=== PATIENT | male | born 1970 | race Caucasian/White ===

== ENCOUNTER 2018-04-22 16:44 | Inpatient (IN) | payer BC, OTHER ==
[2018-04-22] MEDS ORDERED: VANCOMYCIN HCL INJ 1000 MG VIAL IV ONE ×2 (18:52→21:15)
[2018-04-22] MEDS ORDERED: CEFTRIAXONE 1 GM/D5W RTU 1 GM/50 ML RTUPB IV ONE (18:53)
[2018-04-22] MEDS ORDERED: NORMAL SALINE 1000 ML 1,000 ML IV ONE (18:53)
--- NOTE | 2018-04-22 18:59 | ER Document Report ---
ED Medical Screen (RME) - General Mode of Arrival: Ambulatory Information source: Patient TRAVEL OUTSIDE OF THE [place] IN LAST 30 DAYS: No <SIRENA PRATER - Last Filed: 04/22/18 20:44> <YADIRA MIRANDA - Last Filed: 04/22/18 20:45> - General Chief Complaint: Fever Stated Complaint: LEG PAIN AND FEVER Time Seen by Provider: 04/22/18 18:31 Notes: Patient is a 47 year old male presenting to the emergency department complaining of lower left leg swelling, pain and redness onset 7 days ago worsening yesterday. Patient states he presented to a emergency department 7 days ago due to yoli poison yolie which then progressed into an infection. The next day he was seen at [facility] where he was prescribed clindamycin. Patient states the redness, swelling and pain has worsened despite being on the medication and was diagnosed with a DVT in the left poplietal vein on 04/19/2018. During that visit the patient had a WBC of 12.3. On 04/21/2018 patient had a WBC of 20.1 and a BUN of 21. Patient states he presented today due to increasing pain, and drainage from an wound on his lower right leg. He also complains of being thirsty and having a constant fever with the max being 102.3. Patient is currently on Xarelto. GENERAL: Alert, interacts well. No acute distress. HEAD: Normocephalic, atraumatic. EYES: Pupils equal, round, and reactive to light. Extraocular movements intact. ENT: Oral mucosa moist, tongue midline. NECK: Full range of motion. Supple. Trachea midline. LUNGS:. No respiratory distress. EXTREMITIES: Moves all 4 extremities spontaneously. Left leg is grossly swollen. Diffuse erythema which is more intense anteriorly. Active drainage from ulcer close to ankle anteriorly on the left leg, 2 areas of fluctuance. NEUROLOGICAL: Alert and oriented x3. Normal speech. PSYCH: Normal affect, normal mood. I have greeted and performed a rapid initial assessment of this patient. A comprehensive ED assessment and evaluation of the patient, analysis of test results and completion of the medical decision making process will be conducted by additional ED providers. (SIRENA PRATER) - Related Data Allergies/Adverse Reactions: No Known Allergies Allergy (Verified 04/22/18 18:31) Past Medical History Renal/ Medical History: Denies: Hx Peritoneal Dialysis <SIRENA PRATER - Last Filed: 04/22/18 20:44> - Vital signs Vitals: Temp Pulse Resp BP Pulse Ox 100.2 F 122 H 20 121/82 96 04/22/18 16:58 04/22/18 16:58 04/22/18 16:58 04/22/18 16:58 04/22/18 16:58 Course - Laboratory Result Diagrams: 04/22/18 19:47 04/22/18 19:47 <SIRENA PRATER - Last Filed: 04/22/18 20:44> - Laboratory Result Diagrams: 04/22/18 19:47 04/22/18 19:47 <YADIRA MIRANDA - Last Filed: 04/22/18 20:45> - Vital Signs Vital signs: Temp Pulse Resp BP Pulse Ox 100.2 F 122 H 20 121/82 96 04/22/18 16:58 04/22/18 16:58 04/22/18 16:58 04/22/18 16:58 04/22/18 16:58 - Laboratory Laboratory results interpreted by me: 04/22/18 04/22/18 04/22/18 19:47 19:47 19:47 WBC 25.0 H RBC 4.12 L Hgb 11.9 L Hct 35.4 L RDW 14.8 H Seg Neuts % (Manual) 79 H Band Neutrophils % 2 L Monocytes % (Manual) 2 L Metamyelocytes % 2 H Abs Neuts (Manual) 20.8 H PT 16.4 H Sodium 130.3 L Potassium 3.5 L Chloride 95 L Calcium 8.2 L Direct Bilirubin 0.6 H Alkaline Phosphatase 186 H Total Protein 5.6 L Albumin 2.5 L Doctor's Discharge <SIRENA PRATER - Last Filed: 04/22/18 20:44> <YADIRA MIRANDA - Last Filed: 04/22/18 20:45> - Discharge Referrals: FLY BEST MD [NO LOCAL MD] - Follow up as needed
--- NOTE | 2018-04-22 19:37 | ER Document Report ---
ED General - General Chief Complaint: Fever Stated Complaint: LEG PAIN AND FEVER Time Seen by Provider: 04/22/18 18:31 Mode of Arrival: Ambulatory TRAVEL OUTSIDE OF THE [place] IN LAST 30 DAYS: No - HPI Patient complains to provider of: leg pain Onset: Other - This is a 47-year-old man who presents for evaluation of worsening redness and swelling in his left lower extremity. He was diagnosed with cellulitis 3 days prior and started on antibiotics, he is continued to have fevers since that time and notes that it has had worsening swelling as well as pain increasing in the leg. Is never had anything like this in the past has no known medical problems. Nothing seemed to make any better, time seems to be making it worse. - Related Data Allergies/Adverse Reactions: No Known Allergies Allergy (Verified 04/22/18 18:31) Past Medical History - General Information source: Patient - Social History Smoking Status: Unknown if Ever Smoked Family History: None Patient has suicidal ideation: No Patient has homicidal ideation: No Renal/ Medical History: Denies: Hx Peritoneal Dialysis Review of Systems - Review of Systems -: Yes All other systems reviewed and negative Physical Exam - Vital signs Vitals: Temp Pulse Resp BP Pulse Ox 100.2 F 122 H 20 121/82 96 04/22/18 16:58 04/22/18 16:58 04/22/18 16:58 04/22/18 16:58 04/22/18 16:58 - General General appearance: Appears well In distress: None - HEENT Head: Normocephalic Eyes: Normal Conjunctiva: Normal Cornea: Normal Extraocular movements intact: Yes Eyelashes: Normal Pupils: PERRL - Respiratory Respiratory status: No respiratory distress Chest status: Nontender Breath sounds: Normal Chest palpation: Normal - Cardiovascular Rhythm: Tachycardia Heart sounds: Normal auscultation Murmur: No - Abdominal Inspection: Normal Distension: No distension Tenderness: Nontender - Back Back: Normal - Extremities General upper extremity: Normal inspection, Nontender, Normal ROM, Normal strength General lower extremity: Other - The left lower extremity demonstrates marketed erythema and swelling in comparison to the right, there is stranding proximally from the knee over the posterior aspect of the leg near the groin, there is no appreciable crepitance, there is normal range of motion in the knee, there is + 2 pitting edema below the level of the knee, there are several bullae overlying areas of erythema, no obvious purulence, no obvious fluctuance - Neurological Neuro grossly intact: Yes Cognition: Normal Orientation: AAOx4 Georgie Coma Scale Eye Opening: Spontaneous Georgie Coma Scale Verbal: Oriented Alexander Coma Scale Motor: Obeys Commands Georgie Coma Scale Total: 15 Speech: Normal Motor strength normal: LUE, RUE, LLE, RLE - Psychological Associated symptoms: Normal affect Course - Re-evaluation Re-evalutation: 04/22/18 23:20 This 47-year-old man who is failed outpatient treatment for a cellulitis in the left lower extremity. His labs are consistent with a probable underlying sepsis. Has had initiated through triage vancomycin as well as Rocephin. His white count is 25, he is gotten fluids, is overall well-appearing and his heart rate did improve with fluids. We will plan for this patient undergo admission to the hospital for his presumptive cellulitis he does have a pending ultrasound at this time though these changes are not consistent with a phlegmasia cerulea dolens and far more consistent with an underlying infectious process. There is no obvious crepitance to suggest a more serious underlying pathology such as necrotizing fasciitis at this time do not believe there is an indication for debridement. On discussion with Dr. Mendoza there is agreement to admit this patient to the hospital, will continue to monitor as necessary. - Vital Signs Vital signs: Temp Pulse Resp BP Pulse Ox 100.2 F 122 H 28 H 146/91 H 100 04/22/18 16:58 04/22/18 16:58 04/22/18 21:01 04/22/18 21:01 04/22/18 21:01 - Laboratory Result Diagrams: 04/22/18 19:47 04/22/18 19:47 Laboratory results interpreted by me: 04/22/18 04/22/18 04/22/18 19:47 19:47 19:47 WBC 25.0 H RBC 4.12 L Hgb 11.9 L Hct 35.4 L RDW 14.8 H Seg Neuts % (Manual) 79 H Band Neutrophils % 2 L Monocytes % (Manual) 2 L Metamyelocytes % 2 H Abs Neuts (Manual) 20.8 H PT 16.4 H Sodium 130.3 L Potassium 3.5 L Chloride 95 L Calcium 8.2 L Direct Bilirubin 0.6 H Alkaline Phosphatase 186 H Total Protein 5.6 L Albumin 2.5 L Discharge - Discharge Clinical Impression: SIRS (systemic inflammatory response syndrome) Cellulitis Qualifiers: Site of cellulitis: extremity Site of cellulitis of extremity: lower extremity Laterality: left Qualified Code(s): L03.116 - Cellulitis of left lower limb Leukocytosis Qualifiers: Leukocytosis type: other Qualified Code(s): D72.828 - Other elevated white blood cell count Condition: Stable Disposition: ADMITTED INPATIENT Admitting Provider: Hospitalist Unit Admitted: Medical Floor
[2018-04-22 20:01] LABS: VENOUS BLOOD BASE EXCESS 2.5 mmol/L; VENOUS BLOOD HCO3 27.7 mmol/L (20-32); VENOUS BLOOD PCO2 45.4 mmHg (35-63); VENOUS BLOOD PH 7.4 (7.30-7.42)
[2018-04-22 20:03] LABS: HEMATOCRIT 35.4 % (37.9-51.0); HEMOGLOBIN 11.9 g/dL (13.5-17.0); MEAN CORPUSCULAR HEMOGLOBIN 28.9 pg (27.0-33.4); MEAN CORPUSCULAR HGB CONC 33.7 g/dL (32.0-36.0); MEAN CORPUSCULAR VOLUME 86 fl (80-97); PLATELET COUNT 198 10^3/uL (150-450); RED BLOOD COUNT 4.12 10^6/uL (4.35-5.55); RED CELL DISTRIBUTION WIDTH 14.8 % (11.5-14.0)
[2018-04-22 20:08] LABS: INTERNATIONAL RATION (INR) 1.26; PROTHROMBIN TIME 16.4 SEC (11.4-15.4)
[2018-04-22 20:20] LABS: ABSOLUTE LYMPHOCYTES# (MANUAL) 3.5 10^3/uL (0.5-4.7); ABSOLUTE MONOCYTES # (MANUAL) 0.5 10^3/uL (0.1-1.4); ABSOLUTE NEUTROPHILS# (MANUAL) 20.8 10^3/uL (1.7-8.2); BAND NEUTROPHILS % (MANUAL) 2 % (3-5); BASOPHILS % (MANUAL) 0 % (0-2); EOSINOPHILS % (MANUAL) 1 % (0-6); LYMPHOCYTES % (MANUAL) 13 % (13-45); METAMYELOCYTES % (MANUAL) 2 % (0); MONOCYTES % (MANUAL) 2 % (3-13); SEGMENTED NEUTROPHILS % (MAN) 79 % (42-78); TOTAL CELLS COUNTED 100
[2018-04-22 20:21] LABS: ALANINE AMINOTRANSFERASE 48 U/L (21-72); ALBUMIN 2.5 g/dL (3.5-5.0); ALKALINE PHOSPHATASE 186 U/L (38-126); ANION GAP 10 (5-19); ASPARTATE AMINO TRANSFERASE 43 U/L (17-59); BILIRUBIN,DIRECT 0.6 mg/dL (0.0-0.4); BILIRUBIN,TOTAL 0.9 mg/dL (0.2-1.3); BLOOD UREA NITROGEN 13 mg/dL (7-20); CALCIUM 8.2 mg/dL (8.4-10.2); CARBON DIOXIDE 25 mmol/L (22-30); CHLORIDE 95 mmol/L (98-107); GLUCOSE 101 mg/dL (75-110); POTASSIUM 3.5 mmol/L (3.6-5.0); SODIUM 130.3 mmol/L (137-145); TOTAL PROTEIN 5.6 g/dL (6.3-8.2)
[2018-04-22 20:22] LABS: ANISOCYTOSIS SLIGHT; PLATELET COMMENT ADEQUATE; TOXIC GRANULATION SLIGHT
[2018-04-22] MEDS ORDERED: FENTANYL CITRATE INJ/PF 100 MCG/2 ML AMPUL IV ONE (20:31)
[2018-04-22] MEDS ORDERED: HYDRALAZINE HCL INJ/PF 20 MG/1 ML SDV IV PRN (21:48)
[2018-04-22] MEDS ORDERED: MAGNESIUM HYDROXIDE SUSP 30 ML UDCUP PO PRN (21:49)
[2018-04-22] MEDS ORDERED: MAG HYDROX/AL HYDROX/SIMETH SUSP 30 ML UDCUP PO PRN (21:49)
[2018-04-22] MEDS ORDERED: IPRATROPIUM/ALBUTEROL 0.5-2.5 MG/3 ML AMPUL NEB PRN (21:49)
[2018-04-22] MEDS ORDERED: VANCOMYCIN HCL 0 MG in DEXTROSE 5%-WATER 250 ML IV NR (22:00)
[2018-04-22] MEDS ORDERED: HEPARIN SOD (PORCINE) 5,000 UNIT/ML 1 ML SYRINGE SUBCUT SCH (22:00)
[2018-04-22] MEDS ORDERED: NORMAL SALINE 1000 ML 1,000 ML IV SCH (22:00)
--- NOTE | 2018-04-22 22:33 | EKG REPORT ---
SEVERITY:- ABNORMAL ECG - SINUS RHYTHM IVCD, CONSIDER ATYPICAL RBBB LEFT VENTRICULAR HYPERTROPHY : Confirmed by: Angélica Lara MD 22-Apr-2018 22:32:48
[2018-04-22] MEDS ORDERED: RIVAROXABAN 10 MG TABLET PO ONE (23:06)
[2018-04-23] MEDS: KETOROLAC TROMETHAMINE INJ/PF 30 MG/1 ML SDV IV PRN ×3 (00:36→18:32)
[2018-04-23] MEDS: ACETAMINOPHEN 325 MG TABLET PO PRN ×2 (00:37→15:59)
[2018-04-23] MEDS: VANCOMYCIN HCL 1,500 MG in DEXTROSE 5%-WATER 250 ML IV SCH ×4 (00:52→21:56)
[2018-04-23] MEDS: NORMAL SALINE 1000 ML 1,000 ML IV PRN ×4 (00:52→18:32)
[2018-04-23] MEDS ORDERED: VANCOMYCIN HCL INJ 500 MG VIAL ONE (05:25)
[2018-04-23] MEDS ORDERED: VANCOMYCIN HCL INJ 1000 MG VIAL ONE (05:25)
--- NOTE | 2018-04-23 05:37 | PDOC H&P ---
History of Present Illness Admission Date/PCP: 04/22/18 21:59 Patient complains of: Left leg pain and swelling History of Present Illness: JENNIFER TODD is a 47 year old male with a past medical history of hypertension. Patient presents with left leg swelling pain and fever. His leg was initially inflamed and edematous following exposure to poison yolie 2 weeks ago however became acutely worse 5 days ago prompting emergency room evaluation at [facility]. He was diagnosed with a cellulitis and deep vein thrombosis, started on unknown antibiotic and Xarelto. Over the last 48 hours he has had worsening prompting a reevaluation at [facility]. He is found to have severe sepsis fever and leukocytosis of 25,000, and +4 edema to the left lower extremity. He receives vancomycin, Rocephin, and IV fluid challenge and referred to the hospitalist for admission. Patient admits compliance with antibiotic and Xarelto. He denies chest pain, shortness of breath, history of diabetes, IV drug use or previous episode of MRSA. Past Medical History Cardiac Medical History: Reports: Hypertension Past Surgical History Past Surgical History: Reports: None Social History Information Source: Patient, Emergency Med Personnel Smoking Status: Former Smoker Number of Years Smokin Frequency of Alcohol Use: Heavy Hx Recreational Drug Use: No Drugs: None Hx Prescription Drug Abuse: No - Advance Directive Resuscitation Status: Full Code Family History Family History: Hypertension Parental Family History Reviewed: Yes Children Family History Reviewed: Yes Sibling(s) Family History Reviewed.: Yes Medication/Allergy Allergies/Adverse Reactions: No Known Allergies Allergy (Verified 04/22/18 18:31) Review of Systems Constitutional: ABSENT: chills, fever(s), headache(s), weight gain, weight loss Eyes: ABSENT: visual disturbances Ears: ABSENT: hearing changes Cardiovascular: ABSENT: chest pain, dyspnea on exertion, edema, orthropnea, palpitations Respiratory: ABSENT: cough, hemoptysis Gastrointestinal: ABSENT: abdominal pain, constipation, diarrhea, hematemesis, hematochezia, nausea, vomiting Genitourinary: ABSENT: dysuria, hematuria Musculoskeletal: ABSENT: joint swelling Integumentary: ABSENT: rash, wounds Neurological: ABSENT: abnormal gait, abnormal speech, confusion, dizziness, focal weakness, syncope Psychiatric: ABSENT: anxiety, depression, homidical ideation, suicidal ideation Endocrine: ABSENT: cold intolerance, heat intolerance, polydipsia, polyuria Hematologic/Lymphatic: ABSENT: easy bleeding, easy bruising Physical Exam Vital Signs: Temp Pulse Resp BP Pulse Ox 102.9 F H 106 H 19 134/96 H 97 04/23/18 00:40 04/23/18 00:40 04/23/18 00:40 04/23/18 00:40 04/23/18 00:40 Intake & Output 04/21/18 04/22/18 04/23/18 11:59 11:59 11:59 Intake Total 1000 Balance 1000 Weight 120.8 kg General appearance: PRESENT: cooperative, severe distress. ABSENT: no acute distress, hard of hearing Head exam: PRESENT: atraumatic, normocephalic Eye exam: PRESENT: conjunctiva pink, EOMI, PERRLA. ABSENT: scleral icterus Ear exam: PRESENT: normal external ear exam Mouth exam: PRESENT: moist, tongue midline Neck exam: ABSENT: carotid bruit, JVD, lymphadenopathy, thyromegaly Respiratory exam: PRESENT: clear to auscultation alban. ABSENT: rales, rhonchi, wheezes Cardiovascular exam: PRESENT: RRR. ABSENT: diastolic murmur, rubs, systolic murmur Pulses: PRESENT: normal dorsalis pedis pul Vascular exam: PRESENT: normal capillary refill GI/Abdominal exam: PRESENT: normal bowel sounds, soft. ABSENT: distended, guarding, mass, organolmegaly, rebound, tenderness Rectal exam: PRESENT: deferred Extremities exam: PRESENT: other - Left leg +4 edema with several irregular ulcer with serosanguineous drainage. No crepitus Musculoskeletal exam: PRESENT: tenderness - Left leg tenderness. ABSENT: full ROM - Limited by pain Neurological exam: PRESENT: alert, awake, oriented to person, oriented to place , oriented to time, oriented to situation, CN II-XII grossly intact. ABSENT: motor sensory deficit Psychiatric exam: PRESENT: appropriate affect, normal mood. ABSENT: homicidal ideation, suicidal ideation Skin exam: PRESENT: erythema, warm, other - Left leg +4 edema with several irregular ulcers with serosanguineous drainage, no crepitus. ABSENT: dry, intact, jaundice, mottled, normal color, pallor, petechiae, vesicles Assessment & Plan - Diagnosis (1) Cellulitis Qualifiers: Site of cellulitis: extremity Site of cellulitis of extremity: lower extremity Laterality: left Qualified Code(s): L03.116 - Cellulitis of left lower limb Is this a current diagnosis for this admission?: Yes Plan: Left leg cellulitis, concern for necrotizing fasciitis, MRI left leg and surgical consult ordered. Continue empiric vancomycin, Rocephin, follow-up CBC and blood culture (2) Leukocytosis Qualifiers: Leukocytosis type: other Qualified Code(s): D72.828 - Other elevated white blood cell count Is this a current diagnosis for this admission?: Yes Plan: Secondary to #1 (3) SIRS (systemic inflammatory response syndrome) Is this a current diagnosis for this admission?: Yes Plan: Secondary to #1 (4) Deep vein thrombosis Is this a current diagnosis for this admission?: Yes Plan: Left leg secondary to #1, continue Xarelto - Time Time Spent: 50 to 70 Minutes - Inpatient Certification Medical Necessity: Need Close Monitoring Due to Risk of Patient Decompensation
[2018-04-23 06:15] LABS: HEMATOCRIT 29.8 % (37.9-51.0); HEMOGLOBIN 10.2 g/dL (13.5-17.0); MEAN CORPUSCULAR HEMOGLOBIN 29.3 pg (27.0-33.4); MEAN CORPUSCULAR HGB CONC 34.1 g/dL (32.0-36.0); MEAN CORPUSCULAR VOLUME 86 fl (80-97); PLATELET COUNT 176 10^3/uL (150-450); RED BLOOD COUNT 3.47 10^6/uL (4.35-5.55); RED CELL DISTRIBUTION WIDTH 14.9 % (11.5-14.0); WHITE BLOOD COUNT 22.8 10^3/uL (4.0-10.5)
[2018-04-23 06:30] LABS: ANION GAP 8 (5-19); BLOOD UREA NITROGEN 10 mg/dL (7-20); CALCIUM 7.5 mg/dL (8.4-10.2); CARBON DIOXIDE 25 mmol/L (22-30); CHLORIDE 99 mmol/L (98-107); GLUCOSE 110 mg/dL (75-110); POTASSIUM 3.4 mmol/L (3.6-5.0); SODIUM 132.4 mmol/L (137-145)
[2018-04-23 06:38] LABS: ABSOLUTE LYMPHOCYTES# (MANUAL) 1.8 10^3/uL (0.5-4.7); ABSOLUTE MONOCYTES # (MANUAL) 1.1 10^3/uL (0.1-1.4); ABSOLUTE NEUTROPHILS# (MANUAL) 19.4 10^3/uL (1.7-8.2); BAND NEUTROPHILS % (MANUAL) 2 % (3-5); BASOPHILS % (MANUAL) 0 % (0-2); EOSINOPHILS % (MANUAL) 2 % (0-6); LYMPHOCYTES % (MANUAL) 8 % (13-45); METAMYELOCYTES % (MANUAL) 1 % (0); MONOCYTES % (MANUAL) 5 % (3-13); SEGMENTED NEUTROPHILS % (MAN) 82 % (42-78); TOTAL CELLS COUNTED 100
[2018-04-23 06:42] LABS: OVALOCYTES SLIGHT; PLATELET COMMENT ADEQUATE; POIKILOCYTOSIS SLIGHT; TOXIC GRANULATION 1+
[2018-04-23] MEDS ORDERED: CEFTRIAXONE 1 GM/D5W RTU 1 GM/50 ML RTUPB IV SCH (10:00)
[2018-04-23] MEDS ORDERED: RIVAROXABAN 10 MG TABLET PO SCH (10:00)
[2018-04-23] MEDS: DOCUSATE SODIUM 100 MG CAPSULE PO SCH ×2 (10:28→17:39)
--- NOTE | 2018-04-23 11:58 | PDOC PROGRESS REPORT ---
Subjective Progress Note for:: 04/23/18 Subjective:: Mr. Monae is a 47 yr old male with a history of hypertension who was admitted for worsening left leg cellulitis. He recently sustained skin rashes from poison yolie and was also prescribed antibiotics. He was advised bedrest and had progressive swelling of the left leg. His PCP subsequently ordered a US doppler which revealed a left popliteal DVT. He was then started on Xarelto. No acute event overnight. Patient complains of mild left leg pain on movement. No fever or chills. Left lower extremity is grossly swollen jose erythematous. Note of multiple rashes on both legs (from poison yolie) with mostly healing lesions on the right thigh. Note of a ~1 cm wound on the left leg with weeping. Reason For Visit: LEFT LEG CELLULITIS Physical Exam Vital Signs: Temp Pulse Resp BP Pulse Ox 102.9 F H 106 H 19 134/96 H 97 04/23/18 00:40 04/23/18 00:40 04/23/18 00:40 04/23/18 00:40 04/23/18 00:40 Intake & Output 04/22/18 04/23/18 04/24/18 06:59 06:59 06:59 Intake Total 1999 850 Balance 1999 850 Weight 266 lb 5.094 oz General appearance: PRESENT: no acute distress, well-developed, well-nourished Head exam: PRESENT: atraumatic, normocephalic Eye exam: PRESENT: conjunctiva pink, EOMI, PERRLA. ABSENT: scleral icterus Ear exam: PRESENT: normal external ear exam Mouth exam: PRESENT: moist, tongue midline Neck exam: ABSENT: carotid bruit, JVD, lymphadenopathy, thyromegaly Respiratory exam: PRESENT: clear to auscultation alban. ABSENT: rales, rhonchi, wheezes Cardiovascular exam: PRESENT: RRR. ABSENT: diastolic murmur, rubs, systolic murmur Pulses: PRESENT: normal dorsalis pedis pul GI/Abdominal exam: PRESENT: normal bowel sounds, soft. ABSENT: distended, guarding, mass, organolmegaly, rebound, tenderness Rectal exam: PRESENT: deferred Extremities exam: PRESENT: other - Left lower extremity is grossly swollen jose erythematous. Note of multiple rashes on both legs (from poison yolie) with mostly healing lesions on the right thigh. Note of a ~1 cm wound on the left leg with weeping. Neurological exam: PRESENT: alert, awake, oriented to person, oriented to place , oriented to time, oriented to situation, CN II-XII grossly intact. ABSENT: motor sensory deficit Results Laboratory Results: 04/23/18 05:52 04/23/18 05:52 04/23/18 04/23/18 05:52 05:52 WBC 22.8 H RBC 3.47 L Hgb 10.2 L Hct 29.8 L MCV 86 MCH 29.3 MCHC 34.1 RDW 14.9 H Plt Count 176 Seg Neutrophils % Not Reportable Lymphocytes % Not Reportable Monocytes % Not Reportable Eosinophils % Not Reportable Basophils % Not Reportable Absolute Neutrophils Not Reportable Absolute Lymphocytes Not Reportable Absolute Monocytes Not Reportable Absolute Eosinophils Not Reportable Absolute Basophils Not Reportable Sodium 132.4 L Potassium 3.4 L Chloride 99 Carbon Dioxide 25 Anion Gap 8 BUN 10 Creatinine 0.75 Est GFR ( Amer) > 60 Est GFR (Non-Af Amer) > 60 Glucose 110 Calcium 7.5 L Assessment & Plan - Diagnosis (1) Cellulitis Qualifiers: Site of cellulitis: extremity Site of cellulitis of extremity: lower extremity Laterality: left Qualified Code(s): L03.116 - Cellulitis of left lower limb Is this a current diagnosis for this admission?: Yes Plan: Continue Rocephin and vancomycin. MRI pending to rule out necrotizing fasciitis. Surgery has evaluated patient. Further recommendations pending MRI result. (2) Deep vein thrombosis Is this a current diagnosis for this admission?: Yes Plan: Patient had a recent left popliteal DVT. Will reassess if there is progression due to worsening leg swelling. His last dose of Xarelto was at 12:40 am today. - Time Time Spent with patient: 25-34 minutes
--- NOTE | 2018-04-23 12:00 | XCELERA REPORT ---
[address] [place] [facility] [address] Lower Extremity Venous Evaluation Procedure: Color flow and duplex imaging of the veins of the left lower extremity as well as the right Common Femoral vein. Right Sided Venous Evaluation The right common femoral vein is fully compressible. Spontaneous and phasic flow is present in the right common femoral vein. Left Sided Venous Evaluation Abnormal vessel filling, echo poor, incomplete compression and augmentation and minimal Colour flow noted in the Popliteal vein. Others are normal. Interpretation Summary Positive for Subacute DVT in the left Popliteal vein. Similar findings said to be found on study of 04/19/18. Significant resolution is unlikely for days to weeks. Name: JENNIFER TODD Age: 47 yrs Gender: Male : 1970 Patient Status: Inpatient Patient Location: [address] [place] [address] Study Date: 04/23/2018 08:40 AM Reason For Study: left leg DVT Ordering Physician: MORGAN ERNANDEZ Performed By: José Miguel Morales : MORGAN ERNANDEZ > Ced Cardozo
--- NOTE | 2018-04-23 13:06 | RADIOLOGY REPORT (SQ) ---
EXAM DESCRIPTION: MRI LT LOWER EXTREMITY COMBO COMPLETED DATE/TIME: 04/23/2018 12:46 pm REASON FOR STUDY: Evaluate for Necrotizing fasciitis, abscess COMPARISON: None. TECHNIQUE: Multiplanar imaging of the left lower leg to include T1-weighted, postcontrast T1-weighte d, and T2-weighted images. CONTRAST TYPE AND DOSE: 20 mL Dotarem. RENAL FUNCTION: GFR > 60. LIMITATIONS: Heterogeneous fat saturation FINDINGS: No bone marrow edema or enhancement worrisome for osteomyelitis. There is diffuse skin thickening and subcutaneous edema with contrast enhancement from diffuse left l eg cellulitis throughout the field of view, from just below the knee to just above the ankle joint. There is fluid tracking along the tissue planes around the gastrocnemius muscle deep and superficial aspect. There is abnormal primary intrinsic gastrocnemius muscle edema and enhancement worrisome for myositis. This best shown on axial images 8-25, and coronal image 11. No intramuscular abscess. There is mild edema and contrast enhancement along the superficial aspect of the tibialis anterior mu scle worrisome for myositis, best shown on axial images 21-29. Throughout the medial left lower leg soft tissues, lesser saphenous vein varicosities without gross M R evidence of clot identified. IMPRESSION: Diffuse left lower leg cellulitis Abnormal fluid tracking along the deep and superficial aspect of the gastrocnemius muscle with abnorm al muscle enhancement worrisome for myositis. No intramuscular abscess Mild edema and muscle enhancement, superficial surface tibialis anterior muscle worrisome for myositi s. TECHNICAL DOCUMENTATION: JOB ID: [id number] [employer]- All Rights Reserved Reading location - IP/workstation name: [email or web address]
[2018-04-23 13:59] LABS: INTERNATIONAL RATION (INR) 1.23; PROTHROMBIN TIME 16.1 SEC (11.4-15.4)
[2018-04-23 14:00] LABS: PARTIAL THROMBOPLASTIN TIME 45.4 SEC (23.5-35.8)
[2018-04-23] MEDS: HEPARIN SODIUM,PORCINE/D5W 25,000 UNIT/250 ML RTUINJ IV PRN (14:58)
[2018-04-23] MEDS ORDERED: HEPARIN SOD (PORCINE) 1,000 UNIT/ML 10 ML VIAL IV PRN (17:13)
--- NOTE | 2018-04-23 17:56 | PDOC CONSULTATION ---
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 The left leg got more swollen and went to [facility] 5 days ago. He was diagnosed wit DVT left leg and placed on Xarelto and unknown antibiotic. He then developed more swelling and redness along left lower leg associated with fever and went to [facility].He was diagnosed with sepsis and placed on IV antibiotics. A repeat ultrasound of left leg veins was done which confirmed DVT. He just had an MRI of left leg. Past Medical History Cardiac Medical History: Reports: Hypertension Past Surgical History Past Surgical History: Reports: None Social History Smoking Status: Former Smoker Number of Years Smokin Frequency of Alcohol Use: Heavy Hx Recreational Drug Use: No Drugs: None Hx Prescription Drug Abuse: No - Advance Directive Resuscitation Status: Full Code Family History Family History: Hypertension Parental Family History Reviewed: Yes Children Family History Reviewed: No Sibling(s) Family History Reviewed.: No Medication/Allergy Home Medications: Rivaroxaban [Xarelto] 15 mg PO Q12 04/23/18 Allergies/Adverse Reactions: No Known Allergies Allergy (Verified 04/22/18 18:31) Review of Systems Constitutional: PRESENT: as per HPI Eyes: PRESENT: other - No visual/hearing changes Cardiovascular: PRESENT: other - no chest pains /cough Gastrointestinal: PRESENT: other - no pains Genitourinary: PRESENT: other - no dysuria Integumentary: PRESENT: other - swelling and inflammation left leg Neurological: PRESENT: other - no seizures Physical Exam Vital Signs: Temp Pulse Resp BP Pulse Ox 99.6 F 83 16 132/62 H 98 04/23/18 07:41 04/23/18 16:20 04/23/18 16:20 04/23/18 07:41 04/23/18 16:20 Intake & Output 04/22/18 04/23/18 04/24/18 06:59 06:59 06:59 Intake Total 1999 2650 Output Total 2350 Balance 2000 300 Weight 120.8 kg General appearance: PRESENT: mild distress Head exam: PRESENT: atraumatic Eye exam: PRESENT: conjunctiva pink Mouth exam: PRESENT: moist Neck exam: PRESENT: full ROM Respiratory exam: PRESENT: clear to auscultation alban Cardiovascular exam: PRESENT: RRR Pulses: PRESENT: normal radial pulses Vascular exam: PRESENT: normal capillary refill GI/Abdominal exam: PRESENT: soft Rectal exam: PRESENT: deferred Extremities exam: PRESENT: other - left leg swollen, distal to left knee marked erythema and tenderness. There is a jagged laceration on the left distal anterior clark that is tender may be developing an abscess Musculoskeletal exam: PRESENT: ambulatory Neurological exam: PRESENT: alert, oriented to person, oriented to place, oriented to time, oriented to situation Psychiatric exam: PRESENT: appropriate affect Skin exam: PRESENT: erythema, warm - left lower leg Results Laboratory Results: 04/23/18 05:52 04/23/18 05:52 04/23/18 04/23/18 05:52 05:52 WBC 22.8 H RBC 3.47 L Hgb 10.2 L Hct 29.8 L MCV 86 MCH 29.3 MCHC 34.1 RDW 14.9 H Plt Count 176 Seg Neutrophils % Not Reportable Lymphocytes % Not Reportable Monocytes % Not Reportable Eosinophils % Not Reportable Basophils % Not Reportable Absolute Neutrophils Not Reportable Absolute Lymphocytes Not Reportable Absolute Monocytes Not Reportable Absolute Eosinophils Not Reportable Absolute Basophils Not Reportable Sodium 132.4 L Potassium 3.4 L Chloride 99 Carbon Dioxide 25 Anion Gap 8 BUN 10 Creatinine 0.75 Est GFR ( Amer) > 60 Est GFR (Non-Af Amer) > 60 Glucose 110 Calcium 7.5 L Impressions: Lower Extremity MRI 04/23/18 00:00 IMPRESSION: Diffuse left lower leg cellulitis Abnormal fluid tracking along the deep and superficial aspect of the gastrocnemius muscle with abnormal muscle enhancement worrisome for myositis. No intramuscular abscess Mild edema and muscle enhancement, superficial surface tibialis anterior muscle worrisome for myositis. Assessment & Plan - Diagnosis (1) Cellulitis Qualifiers: Site of cellulitis: extremity Site of cellulitis of extremity: lower extremity Laterality: left Qualified Code(s): L03.116 - Cellulitis of left lower limb Is this a current diagnosis for this admission?: Yes (2) Deep vein thrombosis Is this a current diagnosis for this admission?: Yes (3) Leukocytosis Qualifiers: Leukocytosis type: other Qualified Code(s): D72.828 - Other elevated white blood cell count Is this a current diagnosis for this admission?: Yes (4) SIRS (systemic inflammatory response syndrome) Is this a current diagnosis for this admission?: Yes - Time Time Spent: 30 to 50 Minutes - Inpatient Certification Medical Necessity: Need For IV Fluids, Need for Pain Control, Need for IV Antibiotics, Need for Surgery - Plan Summary Plan Summary: Will likely need I&D of left lower leg developing abscess distal anterior clark. MRI showed Myositis at anterior tibial muscle and gastrocnemius. Hold Xarelto and bridge with heparin. For I&D and evaluation of fascia/muscle. F/U CBC in am. May stop heparin 4 hrs prior to surgery. D/W Dr Sims. Will endorse to Dr Pearson in am.
[2018-04-23] MEDS ORDERED: CEFTRIAXONE SODIUM 1,000 MG in DEXTROSE 5%-WATER 50 ML IV SCH (18:00)
[2018-04-23] MEDS: MORPHINE SULFATE 10 MG/ML INJ INJ PRN (21:57)
[2018-04-24] MEDS: PIPERACILLIN SODIUM/TAZOBACTAM 3.375 GM in NORMAL SALINE 100 ML IV SCH ×5 (01:39→23:13)
[2018-04-24] MEDS: MORPHINE SULFATE 10 MG/ML INJ INJ PRN ×4 (01:59→21:02)
[2018-04-24] MEDS: KETOROLAC TROMETHAMINE INJ/PF 30 MG/1 ML SDV IV PRN ×2 (01:59→16:19)
[2018-04-24] MEDS ORDERED: DEXTROSE 50%-WATER 25 GM/50 ML DISP.SYRIN IV PRN ×2 (02:19)
[2018-04-24] MEDS ORDERED: DEXTROSE 40% GEL 15 GM TUBE PO PRN ×2 (02:19)
[2018-04-24] MEDS ORDERED: GLUCAGON,HUMAN RECOMB 1 MG INJ SUBCUT PRN (02:19)
[2018-04-24] MEDS: HEPARIN SODIUM,PORCINE/D5W 25,000 UNIT/250 ML RTUINJ IV PRN ×2 (03:03→14:35)
[2018-04-24] MEDS: VANCOMYCIN HCL 1,500 MG in DEXTROSE 5%-WATER 250 ML IV SCH ×3 (05:28→21:01)
[2018-04-24] MEDS: NORMAL SALINE 1000 ML 1,000 ML IV PRN ×2 (05:29→17:05)
[2018-04-24 06:34] LABS: HEMATOCRIT 29.5 % (37.9-51.0); MEAN CORPUSCULAR HGB CONC 33.9 g/dL (32.0-36.0); MEAN CORPUSCULAR VOLUME 86 fl (80-97); PLATELET COUNT 228 10^3/uL (150-450); RED BLOOD COUNT 3.45 10^6/uL (4.35-5.55); RED CELL DISTRIBUTION WIDTH 14.6 % (11.5-14.0); WHITE BLOOD COUNT 17.5 10^3/uL (4.0-10.5)
[2018-04-24 06:54] LABS: ABSOLUTE LYMPHOCYTES# (MANUAL) 1.8 10^3/uL (0.5-4.7); ABSOLUTE MONOCYTES # (MANUAL) 1.6 10^3/uL (0.1-1.4); BAND NEUTROPHILS % (MANUAL) 8 % (3-5); BASOPHILS % (MANUAL) 0 % (0-2); EOSINOPHILS % (MANUAL) 1 % (0-6); LYMPHOCYTES % (MANUAL) 10 % (13-45); METAMYELOCYTES % (MANUAL) 1 % (0); MONOCYTES % (MANUAL) 9 % (3-13); SEGMENTED NEUTROPHILS % (MAN) 71 % (42-78); TOTAL CELLS COUNTED 100
[2018-04-24 06:55] LABS: ANISOCYTOSIS SLIGHT; PLATELET COMMENT ADEQUATE; TOXIC GRANULATION 1+; TOXIC VACUOLATION PRESENT
[2018-04-24] MEDS: ACETAMINOPHEN 325 MG TABLET PO PRN ×2 (08:29→15:22)
[2018-04-24] MEDS: DOCUSATE SODIUM 100 MG CAPSULE PO SCH ×2 (10:17→17:28)
[2018-04-24] MEDS ORDERED: LIDOCAINE 0.5% INJ-PF (5 MG/ML) 50 ML SDV ONE (11:55)
[2018-04-24] MEDS ORDERED: BUPIVACAINE HCL 0.5 % INJ/PF 30 ML SDV ONE (11:55)
[2018-04-24] MEDS ORDERED: FENTANYL CITRATE INJ/PF 100 MCG/2 ML AMPUL ONE (12:05)
[2018-04-24] MEDS ORDERED: MIDAZOLAM 2 MG/2 ML INJ ONE (12:05)
[2018-04-24] MEDS ORDERED: PROPOFOL INJ 200 MG/20 ML VIAL IV ONE (12:05)
[2018-04-24] MEDS ORDERED: MEPERIDINE HCL/PF INJ 25 MG/1 ML DISP.SYRIN IV PRN (12:26)
[2018-04-24] MEDS ORDERED: DIPHENHYDRAMINE HCL 50 MG/ML VIAL IV PRN (12:26)
[2018-04-24] MEDS ORDERED: FENTANYL CITRATE INJ/PF 100 MCG/2 ML AMPUL IV PRN ×3 (12:26)
[2018-04-24] MEDS ORDERED: ONDANSETRON HCL INJ/PF 4 MG/2 ML SDV IV PRN (12:26)
--- NOTE | 2018-04-24 12:45 | Operative Report ---
Operative Report DATE OF SURGERY: 04/24/18 PREOPERATIVE DIAGNOSIS: 1. History of poison yolie. 2. Left leg cellulitis with exfoliating bulla. 3. DVT left lower extremity in popliteal vein POSTOPERATIVE DIAGNOSIS: Same with infection confined to the dermis OPERATION: 1. Excisional debridement of bulla of lower extremity anterior and posterior surfaces. 2. Wound culture sent for Gram stain sensitivity SURGEON: CECILIA PEARSON ANESTHESIA: LMAC TISSUE REMOVED OR ALTERED: Nonviable skin COMPLICATIONS: None ESTIMATED BLOOD LOSS: Scant INTRAOPERATIVE FINDINGS: See below PROCEDURE: The patient was taken to the preop holding area the main operating room on the [facility] where LMAC anesthesia was left lower extremity was isolated, prepped and draped in a sterile fashion Surgical plan and surgical timeout were conducted. The findings are significant for nonviable skin anterior lower clark consistent with large bulla. Posteriorly along the calf an area approximately 5 x 12 cm with exfoliating bulla. All bulla were rubbed off using 4 x 4's, and edges trimmed with tenotomy scissors. I carefully probed the deeper tissue in multiple areas and there was no evidence of eventration of active infection below the deep dermis. No deep incisions, counterincisions or drains were placed. The problem appeared to be primarily advanced cellulitis with sloughing of epithelium and partial dermis in areas. Portions of skin and sent for Gram stain and sensitivity and culture. In addition over the left lateral malleolus there was some nonviable skin which was debrided with scissors and pickups. The amount of tissue debrided with tenotomy scissors and 4 x 4's and scrub brush included approximately 250 cm square of skin. We felt the operation was complete. Leg dressed anteriorly and posteriorly with 3 pieces of Xeroform, 4 x 4's, Kerlix. Patient sent to recovery room in stable condition with the left leg elevated. At the conclusion of the operation Dr. Pearson spoke with the primary care team , as well as patient's about the intraoperative findings and the anticipated postoperative care and course.
[2018-04-24 14:22] LABS: INTERNATIONAL RATION (INR) 1.03
[2018-04-24 14:23] LABS: PARTIAL THROMBOPLASTIN TIME 42.3 SEC (23.5-35.8)
[2018-04-24 14:25] LABS: HEMATOCRIT 29.8 % (37.9-51.0); HEMOGLOBIN 9.9 g/dL (13.5-17.0); MEAN CORPUSCULAR HEMOGLOBIN 28.8 pg (27.0-33.4); MEAN CORPUSCULAR HGB CONC 33.3 g/dL (32.0-36.0); MEAN CORPUSCULAR VOLUME 87 fl (80-97); PLATELET COUNT 264 10^3/uL (150-450); RED BLOOD COUNT 3.45 10^6/uL (4.35-5.55); RED CELL DISTRIBUTION WIDTH 14.7 % (11.5-14.0)
[2018-04-24 14:42] LABS: ABSOLUTE MONOCYTES # (MANUAL) 0.9 10^3/uL (0.1-1.4); ABSOLUTE NEUTROPHILS# (MANUAL) 14.1 10^3/uL (1.7-8.2); BAND NEUTROPHILS % (MANUAL) 3 % (3-5); BASOPHILS % (MANUAL) 0 % (0-2); EOSINOPHILS % (MANUAL) 0 % (0-6); LYMPHOCYTES % (MANUAL) 12 % (13-45); METAMYELOCYTES % (MANUAL) 2 % (0); MONOCYTES % (MANUAL) 5 % (3-13); SEGMENTED NEUTROPHILS % (MAN) 78 % (42-78); TOTAL CELLS COUNTED 100; VANCOMYCIN,TROUGH 13.3 ug/mL (5.0-20.0)
[2018-04-24 14:43] LABS: ANISOCYTOSIS SLIGHT; OVALOCYTES 1+; PLATELET COMMENT ADEQUATE; POIKILOCYTOSIS 1+; TOXIC GRANULATION 1+
[2018-04-24] MEDS ORDERED: OXYCODONE HCL SR 10 MG TABLET PO SCH (16:45)
--- NOTE | 2018-04-24 17:45 | PDOC PROGRESS REPORT ---
Subjective Progress Note for:: 04/24/18 Subjective:: Mr. Monae is a 47 yr old male with a history of hypertension and recent left leg DVT who was admitted for worsening left leg cellulitis. He recently sustained skin rashes from poison yolie and was also prescribed antibiotics. He was advised bedrest and had progressive swelling of the left leg. His PCP subsequently ordered a US doppler which revealed a left popliteal DVT. He was then started on Xarelto. No acute event overnight. No fever or chills. Patient just underwent debridement of the left leg and is complaining of post surgical pain. Post surgical dressings in place. Reason For Visit: LEFT LEG CELLULITIS Physical Exam Vital Signs: Temp Pulse Resp BP Pulse Ox 99.5 F 85 22 H 136/68 H 95 04/24/18 17:00 04/24/18 17:00 04/24/18 17:00 04/24/18 17:00 04/24/18 17:00 Intake & Output 04/23/18 04/24/18 04/25/18 06:59 06:59 06:59 Intake Total 1999 5037 3006 Output Total 3750 2510 Balance 1999 1287 496 Weight 266 lb 5.094 oz 270 lb 8.115 oz General appearance: PRESENT: no acute distress, well-developed, well-nourished Head exam: PRESENT: atraumatic, normocephalic Eye exam: PRESENT: conjunctiva pink, EOMI, PERRLA. ABSENT: scleral icterus Ear exam: PRESENT: normal external ear exam Mouth exam: PRESENT: moist, tongue midline Neck exam: ABSENT: carotid bruit, JVD, lymphadenopathy, thyromegaly Respiratory exam: PRESENT: clear to auscultation alban. ABSENT: rales, rhonchi, wheezes Cardiovascular exam: PRESENT: RRR. ABSENT: diastolic murmur, rubs, systolic murmur Pulses: PRESENT: normal dorsalis pedis pul GI/Abdominal exam: PRESENT: normal bowel sounds, soft. ABSENT: distended, guarding, mass, organolmegaly, rebound, tenderness Rectal exam: PRESENT: deferred Musculoskeletal exam: PRESENT: other - Dressings in place post op. Neurological exam: PRESENT: alert, awake, oriented to person, oriented to place , oriented to time, oriented to situation, CN II-XII grossly intact. ABSENT: motor sensory deficit Results Laboratory Results: 04/24/18 13:50 04/23/18 05:52 04/24/18 04/24/18 05:50 13:50 WBC 17.5 H 17.0 H RBC 3.45 L 3.45 L Hgb 10.0 L 9.9 L Hct 29.5 L 29.8 L MCV 86 87 MCH 29.0 28.8 MCHC 33.9 33.3 RDW 14.6 H 14.7 H Plt Count 228 264 Seg Neutrophils % Not Reportable Not Reportable Lymphocytes % Not Reportable Not Reportable Monocytes % Not Reportable Not Reportable Eosinophils % Not Reportable Not Reportable Basophils % Not Reportable Not Reportable Absolute Neutrophils Not Reportable Not Reportable Absolute Lymphocytes Not Reportable Not Reportable Absolute Monocytes Not Reportable Not Reportable Absolute Eosinophils Not Reportable Not Reportable Absolute Basophils Not Reportable Not Reportable Impressions: Lower Extremity MRI 04/23/18 00:00 IMPRESSION: Diffuse left lower leg cellulitis Abnormal fluid tracking along the deep and superficial aspect of the gastrocnemius muscle with abnormal muscle enhancement worrisome for myositis. No intramuscular abscess Mild edema and muscle enhancement, superficial surface tibialis anterior muscle worrisome for myositis. Assessment & Plan - Diagnosis (1) Cellulitis Qualifiers: Site of cellulitis: extremity Site of cellulitis of extremity: lower extremity Laterality: left Qualified Code(s): L03.116 - Cellulitis of left lower limb Is this a current diagnosis for this admission?: Yes Plan: Continue Rocephin and vancomycin pending culture results. MRI ruled out necrotizing fasciitis. S/P debridement today 04/24/18. (2) Deep vein thrombosis Is this a current diagnosis for this admission?: Yes Plan: Left popliteal DVT. Continue heparin drip. Will switch back to Xarelto tomorrow. - Time Time Spent with patient: 15-24 minutes
[2018-04-24] MEDS: HEPARIN SOD (PORCINE) 1,000 UNIT/ML 10 ML VIAL IV PRN (22:34)
[2018-04-25] MEDS: HEPARIN SODIUM,PORCINE/D5W 25,000 UNIT/250 ML RTUINJ IV PRN ×2 (00:06→11:44)
[2018-04-25] MEDS: NORMAL SALINE 1000 ML 1,000 ML IV PRN ×2 (03:50→17:27)
[2018-04-25] MEDS: VANCOMYCIN HCL 1,500 MG in DEXTROSE 5%-WATER 250 ML IV SCH ×3 (05:18→21:38)
[2018-04-25] MEDS: OXYCODONE HCL SR 10 MG TABLET PO SCH ×2 (05:18→17:27)
[2018-04-25] MEDS: PIPERACILLIN SODIUM/TAZOBACTAM 3.375 GM in NORMAL SALINE 100 ML IV SCH ×3 (05:18→17:27)
[2018-04-25 05:48] LABS: HEMATOCRIT 29.5 % (37.9-51.0); MEAN CORPUSCULAR HEMOGLOBIN 29.2 pg (27.0-33.4); MEAN CORPUSCULAR HGB CONC 33.8 g/dL (32.0-36.0); MEAN CORPUSCULAR VOLUME 86 fl (80-97); PLATELET COUNT 325 10^3/uL (150-450); RED BLOOD COUNT 3.41 10^6/uL (4.35-5.55); RED CELL DISTRIBUTION WIDTH 14.4 % (11.5-14.0)
[2018-04-25 06:46] LABS: ABSOLUTE LYMPHOCYTES# (MANUAL) 3.2 10^3/uL (0.5-4.7); ABSOLUTE NEUTROPHILS# (MANUAL) 12.8 10^3/uL (1.7-8.2); BASOPHILS % (MANUAL) 0 % (0-2); EOSINOPHILS % (MANUAL) 0 % (0-6); HYPOCHROMASIA SLIGHT; LYMPHOCYTES % (MANUAL) 19 % (13-45); MONOCYTES % (MANUAL) 6 % (3-13); SEGMENTED NEUTROPHILS % (MAN) 75 % (42-78); TOTAL CELLS COUNTED 100
[2018-04-25] MEDS: MORPHINE SULFATE 10 MG/ML INJ INJ PRN ×3 (06:46→21:55)
[2018-04-25 06:47] LABS: ANISOCYTOSIS SLIGHT
[2018-04-25] MEDS: HEPARIN SOD (PORCINE) 1,000 UNIT/ML 10 ML VIAL IV PRN (06:47)
[2018-04-25 06:55] LABS: PLATELET COMMENT ADEQUATE
[2018-04-25] MEDS: KETOROLAC TROMETHAMINE INJ/PF 30 MG/1 ML SDV IV PRN ×3 (09:05→22:39)
[2018-04-25] MEDS: DOCUSATE SODIUM 100 MG CAPSULE PO SCH ×2 (09:06→17:27)
--- NOTE | 2018-04-25 15:32 | PDOC PROGRESS REPORT ---
Subjective Progress Note for:: 04/25/18 Subjective:: Mr. Monae is a 47 yr old male with a history of hypertension and recent left leg DVT who was admitted for worsening left leg cellulitis. He recently sustained skin rashes from poison yolie and was also prescribed antibiotics. He was advised bedrest and had progressive swelling of the left leg. His PCP subsequently ordered a US doppler which revealed a left popliteal DVT. He was then started on Xarelto. Patient underwent debridement of the left leg on 04/24/18. No acute event overnight. No fever or chills. He appears comfortable upon encounter. He says he still has pain on the left leg but has slightly improved from yesterday. Reason For Visit: LEFT LEG CELLULITIS Physical Exam Vital Signs: Temp Pulse Resp BP Pulse Ox 98.4 F 71 22 H 137/81 H 96 04/25/18 11:05 04/25/18 11:05 04/25/18 11:05 04/25/18 11:05 04/25/18 11:05 Intake & Output 04/24/18 04/25/18 04/26/18 06:59 06:59 06:59 Intake Total 5037 5860 378 Output Total 3750 4060 Balance 1287 1800 378 Weight 270 lb 8.115 oz 279 lb 15.793 oz General appearance: PRESENT: no acute distress, morbidly obese Head exam: PRESENT: atraumatic, normocephalic Eye exam: PRESENT: conjunctiva pink, EOMI, PERRLA. ABSENT: scleral icterus Ear exam: PRESENT: normal external ear exam Mouth exam: PRESENT: moist, tongue midline Neck exam: ABSENT: carotid bruit, JVD, lymphadenopathy, thyromegaly Respiratory exam: PRESENT: clear to auscultation ablan. ABSENT: rales, rhonchi, wheezes Cardiovascular exam: PRESENT: RRR. ABSENT: diastolic murmur, rubs, systolic murmur Pulses: PRESENT: normal dorsalis pedis pul Vascular exam: PRESENT: normal capillary refill GI/Abdominal exam: PRESENT: normal bowel sounds, soft. ABSENT: distended, guarding, mass, organolmegaly, rebound, tenderness Rectal exam: PRESENT: deferred Musculoskeletal exam: PRESENT: other - left leg swelling has slightly improved from yesterday, note of dried slightly yellowish wound discharge Neurological exam: PRESENT: alert, awake, oriented to person, oriented to place , oriented to time, oriented to situation, CN II-XII grossly intact. ABSENT: motor sensory deficit Results Laboratory Results: 04/25/18 04:28 04/23/18 05:52 04/25/18 04:28 WBC 17.0 H RBC 3.41 L Hgb 10.0 L Hct 29.5 L MCV 86 MCH 29.2 MCHC 33.8 RDW 14.4 H Plt Count 325 Seg Neutrophils % Not Reportable Lymphocytes % Not Reportable Monocytes % Not Reportable Eosinophils % Not Reportable Basophils % Not Reportable Absolute Neutrophils Not Reportable Absolute Lymphocytes Not Reportable Absolute Monocytes Not Reportable Absolute Eosinophils Not Reportable Absolute Basophils Not Reportable Impressions: Lower Extremity MRI 04/23/18 00:00 IMPRESSION: Diffuse left lower leg cellulitis Abnormal fluid tracking along the deep and superficial aspect of the gastrocnemius muscle with abnormal muscle enhancement worrisome for myositis. No intramuscular abscess Mild edema and muscle enhancement, superficial surface tibialis anterior muscle worrisome for myositis. Assessment & Plan - Diagnosis (1) Cellulitis Qualifiers: Site of cellulitis: extremity Site of cellulitis of extremity: lower extremity Laterality: left Qualified Code(s): L03.116 - Cellulitis of left lower limb Is this a current diagnosis for this admission?: Yes Plan: MRI ruled out necrotizing fasciitis. S/P debridement on 04/24/18. Surgery following. Continue Zosyn and vancomycin for now. (2) Deep vein thrombosis Is this a current diagnosis for this admission?: Yes Plan: Left popliteal DVT. On heparin drip. Will switch back to Xarelto tonight. (3) Morbid obesity due to excess calories Is this a current diagnosis for this admission?: Yes Plan: Advised on caloric restriction and weight loss. - Time Time Spent with patient: 15-24 minutes
[2018-04-25 16:09] LABS: ANION GAP 9 (5-19); BLOOD UREA NITROGEN 8 mg/dL (7-20); CALCIUM 7.9 mg/dL (8.4-10.2); CARBON DIOXIDE 23 mmol/L (22-30); CHLORIDE 103 mmol/L (98-107); GLUCOSE 111 mg/dL (75-110); POTASSIUM 3.9 mmol/L (3.6-5.0); SODIUM 135.1 mmol/L (137-145)
[2018-04-25] MEDS: RIVAROXABAN 10 MG TABLET PO SCH (17:27)
[2018-04-26] MEDS: PIPERACILLIN SODIUM/TAZOBACTAM 3.375 GM in NORMAL SALINE 100 ML IV SCH ×4 (00:29→18:22)
[2018-04-26] MEDS: NORMAL SALINE 1000 ML 1,000 ML IV PRN (02:50)
[2018-04-26] MEDS: KETOROLAC TROMETHAMINE INJ/PF 30 MG/1 ML SDV IV PRN ×3 (04:41→21:56)
[2018-04-26] MEDS: OXYCODONE HCL SR 10 MG TABLET PO SCH ×2 (06:05→18:20)
[2018-04-26] MEDS: VANCOMYCIN HCL 1,500 MG in DEXTROSE 5%-WATER 250 ML IV SCH ×3 (06:45→21:55)
[2018-04-26] MEDS: MORPHINE SULFATE 10 MG/ML INJ INJ PRN (12:12)
[2018-04-26] MEDS: DOCUSATE SODIUM 100 MG CAPSULE PO SCH ×3 (12:13→18:31)
--- NOTE | 2018-04-26 14:18 | PDOC PROGRESS REPORT ---
Subjective Progress Note for:: 04/26/18 Subjective:: Mr. Monae is a 47 yr old male with a history of hypertension and recent left leg DVT who was admitted for worsening left leg cellulitis. He recently sustained skin rashes from poison yolie and was also prescribed antibiotics. He was advised bedrest and had progressive swelling of the left leg. His PCP subsequently ordered a US doppler which revealed a left popliteal DVT. He was then started on Xarelto. Patient underwent debridement of the left leg on 04/24/18. No acute event overnight. No fever or chills. He appears comfortable upon encounter. Pain is improving. The left leg continues to be swollen and erythematous. It did improve after the debridement but looks about the same compared from yesterday. He has a small bullae on the left lateral ankle. Will have surgery reassess wound today. Reason For Visit: LEFT LEG CELLULITIS Physical Exam Vital Signs: Temp Pulse Resp BP Pulse Ox 99.0 F 82 16 144/78 H 96 04/26/18 10:50 04/26/18 10:50 04/26/18 10:50 04/26/18 10:50 04/26/18 10:50 Intake & Output 04/25/18 04/26/18 04/27/18 06:59 06:59 06:59 Intake Total 5860 7476 100 Output Total 4060 6360 Balance 1800 1116 100 Weight 279 lb 15.793 oz 285 lb 15.033 oz General appearance: PRESENT: no acute distress, well-developed, well-nourished Head exam: PRESENT: atraumatic, normocephalic Eye exam: PRESENT: conjunctiva pink, EOMI, PERRLA. ABSENT: scleral icterus Ear exam: PRESENT: normal external ear exam Mouth exam: PRESENT: moist, tongue midline Neck exam: ABSENT: carotid bruit, JVD, lymphadenopathy, thyromegaly Respiratory exam: PRESENT: clear to auscultation alban. ABSENT: rales, rhonchi, wheezes Cardiovascular exam: PRESENT: RRR. ABSENT: diastolic murmur, rubs, systolic murmur Pulses: PRESENT: normal dorsalis pedis pul GI/Abdominal exam: PRESENT: normal bowel sounds, soft. ABSENT: distended, guarding, mass, organolmegaly, rebound, tenderness Rectal exam: PRESENT: deferred Musculoskeletal exam: PRESENT: other - The left leg continues to be swollen and erythematous. It did improve after the debridement but looks about the same compared from yesterday. He has a small bullae on the left lateral ankle. Neurological exam: PRESENT: alert, awake, oriented to person, oriented to place , oriented to time, oriented to situation, CN II-XII grossly intact. ABSENT: motor sensory deficit Results Laboratory Results: 04/25/18 04:28 04/25/18 04:28 04/25/18 04:28 Sodium 135.1 L Potassium 3.9 Chloride 103 Carbon Dioxide 23 Anion Gap 9 BUN 8 Creatinine 0.72 Est GFR ( Amer) > 60 Est GFR (Non-Af Amer) > 60 Glucose 111 H Calcium 7.9 L Impressions: Lower Extremity MRI 04/23/18 00:00 IMPRESSION: Diffuse left lower leg cellulitis Abnormal fluid tracking along the deep and superficial aspect of the gastrocnemius muscle with abnormal muscle enhancement worrisome for myositis. No intramuscular abscess Mild edema and muscle enhancement, superficial surface tibialis anterior muscle worrisome for myositis. Assessment & Plan - Diagnosis (1) Cellulitis Qualifiers: Site of cellulitis: extremity Site of cellulitis of extremity: lower extremity Laterality: left Qualified Code(s): L03.116 - Cellulitis of left lower limb Is this a current diagnosis for this admission?: Yes Plan: MRI ruled out necrotizing fasciitis. S/P debridement on 04/24/18. The left leg continues to be swollen and erythematous. It did improve after the debridement but looks about the same compared from yesterday. He has a small bullae on the left lateral ankle. Continue Zosyn and vancomycin for now. Will have surgery reassess leg today. (2) Deep vein thrombosis Is this a current diagnosis for this admission?: Yes Plan: Left popliteal DVT. He has been taken off heparin drip and has been resumed on Xarelto. (3) Morbid obesity due to excess calories Is this a current diagnosis for this admission?: Yes Plan: Advised on caloric restriction and weight loss. - Time Time Spent with patient: 15-24 minutes
[2018-04-26] MEDS: RIVAROXABAN 10 MG TABLET PO SCH (18:21)
[2018-04-27] MEDS: PIPERACILLIN SODIUM/TAZOBACTAM 3.375 GM in NORMAL SALINE 100 ML IV SCH ×5 (00:57→23:32)
[2018-04-27] MEDS: OXYCODONE HCL SR 10 MG TABLET PO SCH ×2 (05:01→18:17)
[2018-04-27] MEDS: KETOROLAC TROMETHAMINE INJ/PF 30 MG/1 ML SDV IV PRN ×2 (05:58→21:50)
[2018-04-27] MEDS: VANCOMYCIN HCL 1,500 MG in DEXTROSE 5%-WATER 250 ML IV SCH ×3 (05:59→21:52)
--- NOTE | 2018-04-27 10:17 | PDOC PROGRESS REPORT ---
Subjective Progress Note for:: 04/27/18 Subjective:: 47-year-old male past medical history of hypertension and recent left leg DVT was admitted on 04/22/2018 worsening left leg cellulitis. Patient sustained a skin rash due to poison yolie and was prescribed antibiotics by his PCP and he was advised bedrest. Patient started to have progressive left lower extremity swelling and ultrasound by PCP showed left popliteal DVT and patient was started on Xarelto. Patient is a status post debridement of the left lower extremity on 04/24/2018. Left lower extremity MRI on 04/23/2018 showed diffuse left lower leg cellulitis abnormal fluid tracking along the deep and superficial aspect of the gastro anemias muscle with abnormal muscle enhancement possibly myositis. No intramuscular abscess was noted. No sign of osteomyelitis or necrotizing fasciitis. 04/27/2018. No acute events overnight. On my encounter patient is laying in bed not in any apparent distress however he is very anxious about his underlying medical condition. He is stating that he feels like his left lower extremity swelling is getting better however he is very concerned about " inflammation" and wants his Toradol to be given to him scheduled instead of as needed. Patient was counseled on the risk of NSAIDs and he voiced understanding. Denies any fever, chills, nausea, vomiting, chest pain, palpitation, diarrhea, constipation, nausea, vomiting or any urinary symptoms. Reason For Visit: LEFT LEG CELLULITIS Physical Exam Vital Signs: Temp Pulse Resp BP Pulse Ox 98.9 F 80 16 147/83 H 96 04/26/18 23:28 04/26/18 23:28 04/26/18 16:00 04/26/18 23:28 04/26/18 23:28 Intake & Output 04/26/18 04/27/18 04/28/18 06:59 06:59 06:59 Intake Total 7476 2550 Output Total 6360 2350 Balance 1116 200 Weight 129.7 kg 127.4 kg General appearance: PRESENT: no acute distress, well-developed, well-nourished Head exam: PRESENT: atraumatic, normocephalic Eye exam: PRESENT: conjunctiva pink, EOMI, PERRLA. ABSENT: scleral icterus Ear exam: PRESENT: normal external ear exam Mouth exam: PRESENT: moist, tongue midline Neck exam: ABSENT: carotid bruit, JVD, lymphadenopathy, thyromegaly Respiratory exam: PRESENT: clear to auscultation alban. ABSENT: rales, rhonchi, wheezes Cardiovascular exam: PRESENT: RRR. ABSENT: diastolic murmur, rubs, systolic murmur Pulses: PRESENT: normal dorsalis pedis pul Vascular exam: PRESENT: normal capillary refill GI/Abdominal exam: PRESENT: normal bowel sounds, soft. ABSENT: distended, guarding, mass, organolmegaly, rebound, tenderness Rectal exam: PRESENT: deferred Extremities exam: PRESENT: full ROM. ABSENT: calf tenderness, clubbing, pedal edema Musculoskeletal exam: PRESENT: full ROM, other - Left lower extremity mild swelling and erythema over the anterior foot on the exposed skin. Patient has a dressing over the wound no sign of active discharge. Neurological exam: PRESENT: alert, awake, oriented to person, oriented to place , oriented to time, oriented to situation, CN II-XII grossly intact. ABSENT: motor sensory deficit Psychiatric exam: PRESENT: appropriate affect, normal mood. ABSENT: homicidal ideation, suicidal ideation Skin exam: PRESENT: dry, intact, warm, other - Extensive scabs all over his body especially on bilateral lower extremity caused by poison yolie. The rash seems to be getting better. No sign of infection noted.. ABSENT: cyanosis, rash Results Laboratory Results: 04/25/18 04:28 04/25/18 04:28 Impressions: Lower Extremity MRI 04/23/18 00:00 IMPRESSION: Diffuse left lower leg cellulitis Abnormal fluid tracking along the deep and superficial aspect of the gastrocnemius muscle with abnormal muscle enhancement worrisome for myositis. No intramuscular abscess Mild edema and muscle enhancement, superficial surface tibialis anterior muscle worrisome for myositis. Assessment & Plan - Diagnosis (1) Cellulitis Qualifiers: Site of cellulitis: extremity Site of cellulitis of extremity: lower extremity Laterality: left Qualified Code(s): L03.116 - Cellulitis of left lower limb Is this a current diagnosis for this admission?: Yes Plan: Status post debridement on 04/24/2018. Lower extremity still swollen and tender with erythematous on the exposed skin area. As per patient it is improving since the debridement. Prelim report for wound culture on 04/22/2018 shows Staphylococcus hemolyticus and Enterobacter cloacae. Continue Vanco and Zosyn. ID consult for further recommendation. Pending surgery reassessment. Continue supportive measures to control pain. (2) Deep vein thrombosis Is this a current diagnosis for this admission?: Yes Plan: Left popliteal DVT. Patient was started on heparin drip for debridement of the left lower extremity. Restart Xarelto 15 mg twice daily. Patient advised to follow-up with his PCP. Consult physical therapy. (3) Morbid obesity due to excess calories Is this a current diagnosis for this admission?: Yes Plan: Advised on diet and lifestyle modification. (4) Poison yolie Is this a current diagnosis for this admission?: Yes Plan: Extensive healing rash on bilateral lower extremity. Continue wound care.
[2018-04-27] MEDS: DOCUSATE SODIUM 100 MG CAPSULE PO SCH ×2 (11:01→18:08)
[2018-04-27] MEDS: NORMAL SALINE 1000 ML 1,000 ML IV PRN ×2 (11:03→21:51)
[2018-04-27] MEDS: MORPHINE SULFATE 10 MG/ML INJ INJ PRN ×2 (15:05→23:31)
--- NOTE | 2018-04-27 17:35 | Progress Note ---
Provider Note Provider Note: ID Consult Note- I was asked to review the chart of this patient by the pharmacy at the request of the hospitalist physician. The patient appears to have a history of poison yolie, but there was suspicion of a secondary infection with bullous lesions of the leg. A swab of the leg grew coagulase-negative Staph and a GNR, which are likely skin colonizers. The operative note from April 24 does not suggest an active infection. Gram stain of the tissue sent from the OR showed no PMNs and no organisms. Cultures are negative so far. It is not clear that this is an infectious process. I am not convinced that the patient needs to continue antibiotics. Would consider stopping antibiotics to see how the patient does. Vinny Laureano MD Pager: [phone]
[2018-04-27] MEDS: AMLODIPINE BESYLATE 2.5 MG TABLET PO SCH ×2 (18:10→18:25)
[2018-04-27] MEDS: RIVAROXABAN 15 MG TABLET PO SCH (21:52)
[2018-04-27] MEDS ORDERED: KETOROLAC TROMETHAMINE INJ/PF 30 MG/1 ML SDV IV PRN (22:00)
[2018-04-28] MEDS: OXYCODONE HCL SR 10 MG TABLET PO SCH ×2 (05:12→17:56)
[2018-04-28] MEDS: KETOROLAC TROMETHAMINE INJ/PF 30 MG/1 ML SDV IV PRN ×3 (05:13→23:26)
[2018-04-28] MEDS: PIPERACILLIN SODIUM/TAZOBACTAM 3.375 GM in NORMAL SALINE 100 ML IV SCH ×3 (05:13→17:57)
[2018-04-28 05:15] LABS: ABSOLUTE BASOPHILS # (AUTO) 0.1 10^3/uL (0.0-0.2); ABSOLUTE EOSINOPHILS # (AUTO) 0.6 10^3/uL (0.0-0.6); ABSOLUTE LYMPHOCYTES (AUTO) 1.8 10^3/uL (0.5-4.7); ABSOLUTE MONOCYTES (AUTO) 0.9 10^3/uL (0.1-1.4); ABSOLUTE NEUT (AUTO) 7.1 10^3/uL (1.7-8.2); BASOPHILS % (AUTO) 0.6 % (0-2); EOSINOPHILS % (AUTO) 5.9 % (0-6); HEMATOCRIT 26.4 % (37.9-51.0); HEMOGLOBIN 9.2 g/dL (13.5-17.0); MEAN CORPUSCULAR HEMOGLOBIN 30.1 pg (27.0-33.4); MEAN CORPUSCULAR HGB CONC 34.9 g/dL (32.0-36.0); MEAN CORPUSCULAR VOLUME 86 fl (80-97); MONOCYTES % (AUTO) 8.9 % (3-13); PLATELET COUNT 548 10^3/uL (150-450); RED BLOOD COUNT 3.06 10^6/uL (4.35-5.55); RED CELL DISTRIBUTION WIDTH 14.2 % (11.5-14.0); SEGMENTED NEUTROPHILS % (AUTO) 67.6 % (42-78); TOTAL CELLS COUNTED % (AUTO) 100 %; WHITE BLOOD COUNT 10.5 10^3/uL (4.0-10.5)
[2018-04-28 05:45] LABS: ALANINE AMINOTRANSFERASE 40 U/L (21-72); ALBUMIN 2.3 g/dL (3.5-5.0); ALKALINE PHOSPHATASE 165 U/L (38-126); ANION GAP 7 (5-19); ASPARTATE AMINO TRANSFERASE 24 U/L (17-59); BILIRUBIN,DIRECT 0.2 mg/dL (0.0-0.4); BILIRUBIN,TOTAL 0.5 mg/dL (0.2-1.3); BLOOD UREA NITROGEN 11 mg/dL (7-20); CALCIUM 8.2 mg/dL (8.4-10.2); CARBON DIOXIDE 25 mmol/L (22-30); CHLORIDE 104 mmol/L (98-107); GLUCOSE 85 mg/dL (75-110); POTASSIUM 4.5 mmol/L (3.6-5.0); SODIUM 135.9 mmol/L (137-145); TOTAL PROTEIN 5.9 g/dL (6.3-8.2)
[2018-04-28] MEDS: VANCOMYCIN HCL 1,500 MG in DEXTROSE 5%-WATER 250 ML IV SCH (06:30)
[2018-04-28 07:17] LABS: VANCOMYCIN,TROUGH 23.7 ug/mL (5.0-20.0)
[2018-04-28] MEDS: DOCUSATE SODIUM 100 MG CAPSULE PO SCH ×2 (10:24→17:57)
[2018-04-28] MEDS: RIVAROXABAN 15 MG TABLET PO SCH ×2 (10:24→23:26)
--- NOTE | 2018-04-28 10:51 | PDOC PROGRESS REPORT ---
Subjective Progress Note for:: 04/28/18 Subjective:: 47-year-old male past medical history of hypertension and recent left leg DVT was admitted on 04/22/2018 worsening left leg cellulitis. Patient sustained a skin rash due to poison yolie and was prescribed antibiotics by his PCP and he was advised bedrest. Patient started to have progressive left lower extremity swelling and ultrasound by PCP showed left popliteal DVT and patient was started on Xarelto. Patient is a status post debridement of the left lower extremity on 04/24/2018. Left lower extremity MRI on 04/23/2018 showed diffuse left lower leg cellulitis abnormal fluid tracking along the deep and superficial aspect of the gastro anemias muscle with abnormal muscle enhancement possibly myositis. No intramuscular abscess was noted. No sign of osteomyelitis or necrotizing fasciitis. 04/27/2018. No acute events overnight. On my encounter patient is laying in bed not in any apparent distress however he is very anxious about his underlying medical condition. He is stating that he feels like his left lower extremity swelling is getting better however he is very concerned about " inflammation" and wants his Toradol to be given to him scheduled instead of as needed. Patient was counseled on the risk of NSAIDs and he voiced understanding. Denies any fever, chills, nausea, vomiting, chest pain, palpitation, diarrhea, constipation, nausea, vomiting or any urinary symptoms. 04/28/2018. No acute events overnight. On my encounter patient is sitting on recliner and has his both extremities elevated. He said that he is feeling better and his left lower extremity pain has been minimizing. He had a good night sleep and he is p.o. tolerant. Denies any fever, chills, nausea, vomiting , abdominal pain, diarrhea, constipation or any urinary symptoms. Reason For Visit: LEFT LEG CELLULITIS Physical Exam Vital Signs: Temp Pulse Resp BP Pulse Ox 99.0 F 72 22 H 136/89 H 98 04/28/18 00:06 04/28/18 00:06 04/28/18 00:06 04/28/18 00:06 04/28/18 00:06 Intake & Output 04/27/18 04/28/18 04/29/18 06:59 06:59 06:59 Intake Total 3550 2540 Output Total 2350 1540 0 Balance 1200 1000 -2049 Weight 127.4 kg 127 kg Results Laboratory Results: 04/28/18 04:15 04/28/18 04:15 04/28/18 04/28/18 04:15 04:15 WBC 10.5 RBC 3.06 L Hgb 9.2 L Hct 26.4 L MCV 86 MCH 30.1 MCHC 34.9 RDW 14.2 H Plt Count 548 H Seg Neutrophils % 67.6 Lymphocytes % 17.0 Monocytes % 8.9 Eosinophils % 5.9 Basophils % 0.6 Absolute Neutrophils 7.1 Absolute Lymphocytes 1.8 Absolute Monocytes 0.9 Absolute Eosinophils 0.6 Absolute Basophils 0.1 Sodium 135.9 L Potassium 4.5 Chloride 104 Carbon Dioxide 25 Anion Gap 7 BUN 11 Creatinine 0.93 Est GFR ( Amer) > 60 Est GFR (Non-Af Amer) > 60 Glucose 85 Calcium 8.2 L Total Bilirubin 0.5 AST 24 ALT 40 Alkaline Phosphatase 165 H Total Protein 5.9 L Albumin 2.3 L 04/23/18 15:20 Leg - Left Cellulitis Gram Stain - Final 04/23/18 15:20 Leg - Left Cellulitis Wound Culture - Final Staphylococcus Haemolyticus Enterobacter Cloacae Impressions: Lower Extremity MRI 04/23/18 00:00 IMPRESSION: Diffuse left lower leg cellulitis Abnormal fluid tracking along the deep and superficial aspect of the gastrocnemius muscle with abnormal muscle enhancement worrisome for myositis. No intramuscular abscess Mild edema and muscle enhancement, superficial surface tibialis anterior muscle worrisome for myositis. Assessment & Plan - Diagnosis (1) Cellulitis Qualifiers: Site of cellulitis: extremity Site of cellulitis of extremity: lower extremity Laterality: left Qualified Code(s): L03.116 - Cellulitis of left lower limb Is this a current diagnosis for this admission?: Yes Plan: Status post debridement on 04/24/2018. Lower extremity still swollen but improving and erythema over anterior foot on the expose of the skin has resolved. Prelim report for wound culture on 04/22/2018 shows Staphylococcus hemolyticus and Enterobacter cloacae. Continue Vanco and Zosyn. I personally talked with Dr. Georgi WETZEL over the telephone worker. He suggested for his cellulitis he could be due to staph or strep and staph hemolyticus could be a possible contamination. He suggested that he could be switched to either Keflex , Bactrim or clindamycin when clinically appropriate for a total of 7-10 days. Pending surgery reassessment. Continue supportive measures to control pain. (2) Deep vein thrombosis Is this a current diagnosis for this admission?: Yes Plan: Left popliteal DVT. Patient was started on heparin drip for debridement of the left lower extremity. Restart Xarelto 15 mg twice daily. Patient advised to follow-up with his PCP. Consult physical therapy. (3) Morbid obesity due to excess calories Is this a current diagnosis for this admission?: Yes Plan: Advised on diet and lifestyle modification. (4) Poison yolie Is this a current diagnosis for this admission?: Yes Plan: Extensive healing rash on bilateral lower extremity. Continue wound care. (5) HTN (hypertension) Is this a current diagnosis for this admission?: Yes Plan: Systolic blood pressure been running in 140s. He is euvolemic. Started on low- dose amlodipine. Adjust medication as needed. Follow-up with PCP. (6) Anemia Is this a current diagnosis for this admission?: Yes Plan: Normocytic. Patient is dropping since admission. Denies any external source of bleeding. Will order iron panel and stool guaiac. H&H. CMP tomorrow.
[2018-04-28] MEDS: ACETAMINOPHEN 325 MG TABLET PO PRN ×2 (12:00→19:37)
[2018-04-28] MEDS: NORMAL SALINE 1000 ML 1,000 ML IV PRN ×2 (13:29→23:27)
[2018-04-28 16:06] LABS: ABSOLUTE RETICS # 0.048 10^6/uL (0.028-0.122); RETICULOCYTE COUNT (AUTO) 1.58 % (0.66-2.85)
[2018-04-28 17:04] LABS: IRON(TIBC) 13.8 ug/dL (49-181)
[2018-04-28] MEDS: AMLODIPINE BESYLATE 2.5 MG TABLET PO SCH (17:56)
[2018-04-28 18:13] LABS: FOLATE 3.55 ng/mL (>2.76)
[2018-04-28] MEDS: VANCOMYCIN HCL 1,000 MG in DEXTROSE 5%-WATER 250 ML IV SCH (23:25)
[2018-04-29] MEDS: PIPERACILLIN SODIUM/TAZOBACTAM 3.375 GM in NORMAL SALINE 100 ML IV SCH ×3 (00:55→12:02)
[2018-04-29] MEDS: OXYCODONE HCL SR 10 MG TABLET PO SCH ×2 (06:14→17:35)
[2018-04-29] MEDS: VANCOMYCIN HCL 1,000 MG in DEXTROSE 5%-WATER 250 ML IV SCH (06:14)
[2018-04-29 06:23] LABS: ABSOLUTE BASOPHILS # (AUTO) 0.1 10^3/uL (0.0-0.2); ABSOLUTE EOSINOPHILS # (AUTO) 0.4 10^3/uL (0.0-0.6); ABSOLUTE LYMPHOCYTES (AUTO) 1.4 10^3/uL (0.5-4.7); ABSOLUTE MONOCYTES (AUTO) 0.8 10^3/uL (0.1-1.4); ABSOLUTE NEUT (AUTO) 5.5 10^3/uL (1.7-8.2); BASOPHILS % (AUTO) 0.8 % (0-2); EOSINOPHILS % (AUTO) 5.4 % (0-6); HEMATOCRIT 27.2 % (37.9-51.0); HEMOGLOBIN 9.4 g/dL (13.5-17.0); LYMPHOCYTES % (AUTO) 17.1 % (13-45); MEAN CORPUSCULAR HGB CONC 34.6 g/dL (32.0-36.0); MEAN CORPUSCULAR VOLUME 87 fl (80-97); MONOCYTES % (AUTO) 10.1 % (3-13); PLATELET COUNT 547 10^3/uL (150-450); RED BLOOD COUNT 3.14 10^6/uL (4.35-5.55); RED CELL DISTRIBUTION WIDTH 14.1 % (11.5-14.0); SEGMENTED NEUTROPHILS % (AUTO) 66.6 % (42-78); TOTAL CELLS COUNTED % (AUTO) 100 %; WHITE BLOOD COUNT 8.3 10^3/uL (4.0-10.5)
[2018-04-29 06:44] LABS: ALANINE AMINOTRANSFERASE 40 U/L (21-72); ALBUMIN 2.4 g/dL (3.5-5.0); ALKALINE PHOSPHATASE 158 U/L (38-126); ANION GAP 9 (5-19); ASPARTATE AMINO TRANSFERASE 22 U/L (17-59); BILIRUBIN,DIRECT 0.2 mg/dL (0.0-0.4); BILIRUBIN,TOTAL 0.6 mg/dL (0.2-1.3); BLOOD UREA NITROGEN 13 mg/dL (7-20); CALCIUM 8.4 mg/dL (8.4-10.2); CARBON DIOXIDE 25 mmol/L (22-30); CHLORIDE 103 mmol/L (98-107); GLUCOSE 87 mg/dL (75-110); SODIUM 136.5 mmol/L (137-145)
[2018-04-29] MEDS: KETOROLAC TROMETHAMINE INJ/PF 30 MG/1 ML SDV IV PRN ×2 (08:19→19:50)
[2018-04-29] MEDS: RIVAROXABAN 15 MG TABLET PO SCH ×2 (10:42→22:12)
[2018-04-29] MEDS: DOCUSATE SODIUM 100 MG CAPSULE PO SCH ×2 (10:42→17:35)
[2018-04-29] MEDS: NORMAL SALINE 1000 ML 1,000 ML IV PRN (12:03)
[2018-04-29] MEDS ORDERED: AMLODIPINE BESYLATE 2.5 MG TABLET PO SCH (12:43)
--- NOTE | 2018-04-29 12:54 | PDOC PROGRESS REPORT ---
Subjective Progress Note for:: 04/29/18 Subjective:: 47-year-old male past medical history of hypertension and recent left leg DVT was admitted on 04/22/2018 worsening left leg cellulitis. Patient sustained a skin rash due to poison yolie and was prescribed antibiotics by his PCP and he was advised bedrest. Patient started to have progressive left lower extremity swelling and ultrasound by PCP showed left popliteal DVT and patient was started on Xarelto. Patient is a status post debridement of the left lower extremity on 04/24/2018. Left lower extremity MRI on 04/23/2018 showed diffuse left lower leg cellulitis abnormal fluid tracking along the deep and superficial aspect of the gastro anemias muscle with abnormal muscle enhancement possibly myositis. No intramuscular abscess was noted. No sign of osteomyelitis or necrotizing fasciitis. 04/27/2018. No acute events overnight. On my encounter patient is laying in bed not in any apparent distress however he is very anxious about his underlying medical condition. He is stating that he feels like his left lower extremity swelling is getting better however he is very concerned about " inflammation" and wants his Toradol to be given to him scheduled instead of as needed. Patient was counseled on the risk of NSAIDs and he voiced understanding. Denies any fever, chills, nausea, vomiting, chest pain, palpitation, diarrhea, constipation, nausea, vomiting or any urinary symptoms. 04/28/2018. No acute events overnight. On my encounter patient is sitting on recliner and has his both extremities elevated. He said that he is feeling better and his left lower extremity pain has been minimizing. He had a good night sleep and he is p.o. tolerant. Denies any fever, chills, nausea, vomiting , abdominal pain, diarrhea, constipation or any urinary symptoms. 04/29/2018. No acute events overnight. On my encounter patient was having some mild nosebleeds which he stated was because after he was picking his nose. He denies any previous history of nosebleeds. She has been sitting in recliner and stating that his left lower extremity pain has improved. Patient still has some swelling of the left lower extremity but no sign of erythema. Patient is p.o. tolerant and tolerating hir p.o. medication. Patient was made aware of his anemia and he denies any external source of bleeding except for epistaxis today. Patient denies any fever, chills, nausea, vomiting, diarrhea, constipation or any urinary symptoms. Reason For Visit: LEFT LEG CELLULITIS Physical Exam Vital Signs: Temp Pulse Resp BP Pulse Ox 98.3 F 72 20 145/77 H 96 04/29/18 12:00 04/29/18 12:00 04/29/18 12:00 04/29/18 12:00 04/29/18 12:00 Intake & Output 04/28/18 04/29/18 04/30/18 06:59 06:59 06:59 Intake Total 3540 3250 1250 Output Total 1540 5550 650 Balance 1999 -2300 600 Weight 127 kg 127 kg General appearance: PRESENT: no acute distress, well-developed, well-nourished Head exam: PRESENT: atraumatic, normocephalic Eye exam: PRESENT: conjunctiva pink, EOMI, PERRLA. ABSENT: scleral icterus Ear exam: PRESENT: normal external ear exam Mouth exam: PRESENT: moist, tongue midline Neck exam: ABSENT: carotid bruit, JVD, lymphadenopathy, thyromegaly Respiratory exam: PRESENT: clear to auscultation alban. ABSENT: rales, rhonchi, wheezes Cardiovascular exam: PRESENT: RRR. ABSENT: diastolic murmur, rubs, systolic murmur Pulses: PRESENT: normal dorsalis pedis pul Vascular exam: PRESENT: normal capillary refill GI/Abdominal exam: PRESENT: normal bowel sounds, soft. ABSENT: distended, guarding, mass, organolmegaly, rebound, tenderness Rectal exam: PRESENT: deferred Extremities exam: PRESENT: full ROM, other - Right lower extremity is swollen however no sign of erythema on the exposed area. Patient still has left lower extremity dressing with no sign of active discharge.. ABSENT: calf tenderness, clubbing, pedal edema Neurological exam: PRESENT: alert, awake, oriented to person, oriented to place , oriented to time, oriented to situation, CN II-XII grossly intact. ABSENT: motor sensory deficit Psychiatric exam: PRESENT: appropriate affect, normal mood. ABSENT: homicidal ideation, suicidal ideation Skin exam: PRESENT: dry, intact, warm. ABSENT: cyanosis, rash Results Laboratory Results: 04/29/18 05:26 04/29/18 05:26 04/28/18 04/28/18 04/29/18 04:15 04:15 05:26 WBC 8.3 RBC 3.14 L Hgb 9.4 L Hct 27.2 L MCV 87 MCH 30.0 MCHC 34.6 RDW 14.1 H Plt Count 547 H Seg Neutrophils % 66.6 Lymphocytes % 17.1 Monocytes % 10.1 Eosinophils % 5.4 Basophils % 0.8 Absolute Neutrophils 5.5 Absolute Lymphocytes 1.4 Absolute Monocytes 0.8 Absolute Eosinophils 0.4 Absolute Basophils 0.1 Retic Count (auto) 1.58 Absolute Retic 0.048 Sodium Potassium Chloride Carbon Dioxide Anion Gap BUN Creatinine Est GFR ( Amer) Est GFR (Non-Af Amer) Glucose Calcium Iron 13.8 L TIBC 206 L % Saturation 7 Ferritin 291.00 Total Bilirubin AST ALT Alkaline Phosphatase Total Protein Albumin Vitamin B12 > 1000.0 H Folate 3.55 Stool Occult Blood 04/29/18 04/29/18 05:26 09:19 WBC RBC Hgb Hct MCV MCH MCHC RDW Plt Count Seg Neutrophils % Lymphocytes % Monocytes % Eosinophils % Basophils % Absolute Neutrophils Absolute Lymphocytes Absolute Monocytes Absolute Eosinophils Absolute Basophils Retic Count (auto) Absolute Retic Sodium 136.5 L Potassium 5.0 Chloride 103 Carbon Dioxide 25 Anion Gap 9 BUN 13 Creatinine 0.93 Est GFR ( Amer) > 60 Est GFR (Non-Af Amer) > 60 Glucose 87 Calcium 8.4 Iron TIBC % Saturation Ferritin Total Bilirubin 0.6 AST 22 ALT 40 Alkaline Phosphatase 158 H Total Protein 6.0 L Albumin 2.4 L Vitamin B12 Folate Stool Occult Blood NEGATIVE 04/24/18 12:22 Leg - Cellulitis Gram Stain - Final 04/24/18 12:22 Leg - Cellulitis Wound Culture - Final NO AEROBIC OR ANAEROBIC ORGANISMS RECOVERED Impressions: Lower Extremity MRI 04/23/18 00:00 IMPRESSION: Diffuse left lower leg cellulitis Abnormal fluid tracking along the deep and superficial aspect of the gastrocnemius muscle with abnormal muscle enhancement worrisome for myositis. No intramuscular abscess Mild edema and muscle enhancement, superficial surface tibialis anterior muscle worrisome for myositis. Assessment & Plan - Diagnosis (1) Cellulitis Qualifiers: Site of cellulitis: extremity Site of cellulitis of extremity: lower extremity Laterality: left Qualified Code(s): L03.116 - Cellulitis of left lower limb Is this a current diagnosis for this admission?: Yes Plan: Status post debridement on 04/24/2018. Lower extremity still swollen but improving and erythema over anterior foot on the expose of the skin has resolved. Wound culture on 04/22/2018 shows Staphylococcus hemolyticus and Enterobacter cloacae both sensitive to Bactrim. DC Vanco and Zosyn and start Bactrim for another 3 days to complete 10 days of total antibiotics. Last day of antibiotics 05/02/2018 I personally talked with Dr. Georgi WETZEL over the phone. He suggested for his cellulitis could be due to staph or strep and staph hemolyticus could be a possible contamination. He suggested that he could be switched to either Keflex , Bactrim or clindamycin when clinically appropriate for a total of 7-10 days. Pending surgery reassessment. Continue supportive measures to control pain. (2) Deep vein thrombosis Is this a current diagnosis for this admission?: Yes Plan: Left popliteal DVT. Patient was started on heparin drip for debridement of the left lower extremity. Restart Xarelto 15 mg twice daily. Patient advised to follow-up with his PCP. Consult physical therapy. (3) Morbid obesity due to excess calories Is this a current diagnosis for this admission?: Yes Plan: Advised on diet and lifestyle modification. (4) Poison yolie Is this a current diagnosis for this admission?: Yes Plan: Extensive healing rash on bilateral lower extremity. Continue wound care. (5) HTN (hypertension) Is this a current diagnosis for this admission?: Yes Plan: Systolic blood pressure been running in 140s. He is euvolemic. Increase amlodipine to 5 mg p.o. daily. Adjust medication as needed. Follow-up with PCP. (6) Anemia Is this a current diagnosis for this admission?: Yes Plan: Normocytic. Patient is dropping since admission. Denies any external source of bleeding. Remain B12 and folic acid within normal limits. Iron panel suggestive of iron deficiency anemia. Stool guaiac negative. Will start on ferrous sulfate twice daily. BMP tomorrow
[2018-04-29] MEDS ORDERED: SULFAMETHOXAZOLE/TRIMETHOPRIM 800-160 MG TABLET PO ONE (14:00)
[2018-04-29] MEDS: ACETAMINOPHEN 325 MG TABLET PO PRN (14:01)
[2018-04-29] MEDS: FERROUS SULFATE 325 MG TABLET PO SCH ×2 (14:01→17:35)
[2018-04-29] MEDS ORDERED: AMLODIPINE BESYLATE 5 MG TABLET PO SCH (18:00)
[2018-04-29] MEDS: SULFAMETHOXAZOLE/TRIMETHOPRIM 800-160 MG TABLET PO SCH (22:11)
--- NOTE | 2018-04-30 00:51 | PDOC PROGRESS REPORT ---
Subjective Progress Note for:: 04/30/18 Subjective:: Patient with cellulitis of the left leg in the setting of a bad poison yolie infection as well as deep venous thrombosis status post debridement by Dr. Pearson earlier this week. Patient wanted follow-up after this debridement. He does note that the swelling has decreased through the week. He has pain in his left leg especially with ambulation. Reason For Visit: LEFT LEG CELLULITIS Physical Exam Vital Signs: Temp Pulse Resp BP Pulse Ox 98.5 F 83 18 144/82 H 93 04/29/18 19:11 04/29/18 19:11 04/29/18 19:11 04/29/18 19:11 04/29/18 19:11 Intake & Output 04/28/18 04/29/18 04/30/18 06:59 06:59 06:59 Intake Total 3540 3250 2350 Output Total 1540 5550 2700 Balance 2000 -2300 -350 Weight 127 kg 127 kg General appearance: PRESENT: no acute distress, cooperative Extremities exam: PRESENT: other - Left leg with diffuse swelling and erythema with areas of blistering that have been debrided that appears clean. There is no fluctuance. No purulent discharge. All wounds look very clean. Patient has a palpable pedal pulse and no pain in his leg with passive range of motion of his foot except with extreme flexion of his foot. Results Laboratory Results: 04/29/18 05:26 04/29/18 05:26 04/29/18 04/29/18 04/29/18 05:26 05:26 09:19 WBC 8.3 RBC 3.14 L Hgb 9.4 L Hct 27.2 L MCV 87 MCH 30.0 MCHC 34.6 RDW 14.1 H Plt Count 547 H Seg Neutrophils % 66.6 Lymphocytes % 17.1 Monocytes % 10.1 Eosinophils % 5.4 Basophils % 0.8 Absolute Neutrophils 5.5 Absolute Lymphocytes 1.4 Absolute Monocytes 0.8 Absolute Eosinophils 0.4 Absolute Basophils 0.1 Sodium 136.5 L Potassium 5.0 Chloride 103 Carbon Dioxide 25 Anion Gap 9 BUN 13 Creatinine 0.93 Est GFR ( Amer) > 60 Est GFR (Non-Af Amer) > 60 Glucose 87 Calcium 8.4 Total Bilirubin 0.6 AST 22 ALT 40 Alkaline Phosphatase 158 H Total Protein 6.0 L Albumin 2.4 L Stool Occult Blood NEGATIVE 10/13/18 12:22 Leg - Cellulitis Gram Stain - Final 04/24/18 12:22 Leg - Cellulitis Wound Culture - Final NO AEROBIC OR ANAEROBIC ORGANISMS RECOVERED Impressions: Lower Extremity MRI 04/23/18 00:00 IMPRESSION: Diffuse left lower leg cellulitis Abnormal fluid tracking along the deep and superficial aspect of the gastrocnemius muscle with abnormal muscle enhancement worrisome for myositis. No intramuscular abscess Mild edema and muscle enhancement, superficial surface tibialis anterior muscle worrisome for myositis. Assessment & Plan - Diagnosis (1) Cellulitis Qualifiers: Site of cellulitis: extremity Site of cellulitis of extremity: lower extremity Laterality: left Qualified Code(s): L03.116 - Cellulitis of left lower limb Is this a current diagnosis for this admission?: Yes Plan: In the setting of deep venous thrombosis with diffuse swelling. I do not see any role for any further debridement. Recommend continuation of anticoagulation and higher leg elevation, and decrease acute angulation of his hip when sitting, and dressing changes. Patient was noted with possible myositis on his MRI earlier this week. Although he does have swelling of his lower leg I do not think he has compartment syndrome in the light of the fact that he does not have pain with passive range of motion other than a positive Homans sign with extreme flexion of his foot. I will consult orthopedics in the morning for a second opinion about possible myositis. Of note I had seen the patient earlier this evening and had recommended higher elevation and change of positioning when he is sitting and with these changes his swelling has decreased significantly in just these few hours. Patient does note that he has had steady improvement of his symptoms throughout the week.
[2018-04-30] MEDS: ACETAMINOPHEN 325 MG TABLET PO PRN (03:14)
[2018-04-30] MEDS: OXYCODONE HCL SR 10 MG TABLET PO SCH ×2 (06:14→19:40)
[2018-04-30] MEDS: KETOROLAC TROMETHAMINE INJ/PF 30 MG/1 ML SDV IV PRN ×2 (07:30→22:25)
--- NOTE | 2018-04-30 11:50 | PDOC PROGRESS REPORT ---
Subjective Progress Note for:: 04/30/18 Subjective:: comfortable Reason For Visit: LEFT LEG CELLULITIS Physical Exam Vital Signs: Temp Pulse Resp BP Pulse Ox 98.3 F 77 22 H 156/86 H 94 04/30/18 07:26 04/30/18 07:26 04/30/18 07:26 04/30/18 07:26 04/30/18 07:26 Intake & Output 04/29/18 04/30/18 05/01/18 06:59 06:59 06:59 Intake Total 3250 2350 Output Total 5550 2700 Balance -2300 -350 Weight 127 kg 127.1 kg Extremities exam: PRESENT: other - LLE: left calf tender, swollen and thick with diffuse posterior induration, erythema of skin, multiple skin ulceratons, skin crusty material diffuse in anterior and posterior aspect Results Laboratory Results: 04/29/18 05:26 04/29/18 05:26 04/24/18 12:22 Leg - Cellulitis Gram Stain - Final 04/24/18 12:22 Leg - Cellulitis Wound Culture - Final NO AEROBIC OR ANAEROBIC ORGANISMS RECOVERED Impressions: Lower Extremity MRI 04/23/18 00:00 IMPRESSION: Diffuse left lower leg cellulitis Abnormal fluid tracking along the deep and superficial aspect of the gastrocnemius muscle with abnormal muscle enhancement worrisome for myositis. No intramuscular abscess Mild edema and muscle enhancement, superficial surface tibialis anterior muscle worrisome for myositis. Assessment & Plan - Diagnosis (2) Cellulitis Qualifiers: Site of cellulitis: extremity Site of cellulitis of extremity: lower extremity Laterality: left Qualified Code(s): L03.116 - Cellulitis of left lower limb Is this a current diagnosis for this admission?: Yes - Plan Summary Plan Summary: A/ Myositis and cellulitis left leg Diffuse swelling and induration 'Multiple skin ulceration and presence of crusty material; also necrotic skin lesions seen current treatment with oral Bactrim/Penicillin Cx show staphylococcus and enterobacter P/ Discontinue currernt abx treatment as the infectious process needs to be treated aggressively Start Rocephin 2 gr IV q 24 Flagyl 500 mg IV q8 Debridment in surgery tomorrow Procedure, risks, benefits discussed with patient, he understands, and decides to proceed.
[2018-04-30] MEDS: RIVAROXABAN 15 MG TABLET PO SCH (12:12)
[2018-04-30] MEDS: DOCUSATE SODIUM 100 MG CAPSULE PO SCH ×2 (12:20→18:18)
[2018-04-30] MEDS: FERROUS SULFATE 325 MG TABLET PO SCH ×2 (12:20→18:18)
--- NOTE | 2018-04-30 12:42 | PDOC PROGRESS REPORT ---
Subjective Progress Note for:: 04/30/18 Subjective:: 47-year-old male past medical history of hypertension and recent left leg DVT was admitted on 04/22/2018 worsening left leg cellulitis. Patient sustained a skin rash due to poison yolie and was prescribed antibiotics by his PCP and he was advised bedrest. Patient started to have progressive left lower extremity swelling and ultrasound by PCP showed left popliteal DVT and patient was started on Xarelto. Patient is a status post debridement of the left lower extremity on 04/24/2018. Left lower extremity MRI on 04/23/2018 showed diffuse left lower leg cellulitis abnormal fluid tracking along the deep and superficial aspect of the gastro anemias muscle with abnormal muscle enhancement possibly myositis. No intramuscular abscess was noted. No sign of osteomyelitis or necrotizing fasciitis. 04/27/2018. No acute events overnight. On my encounter patient is laying in bed not in any apparent distress however he is very anxious about his underlying medical condition. He is stating that he feels like his left lower extremity swelling is getting better however he is very concerned about " inflammation" and wants his Toradol to be given to him scheduled instead of as needed. Patient was counseled on the risk of NSAIDs and he voiced understanding. Denies any fever, chills, nausea, vomiting, chest pain, palpitation, diarrhea, constipation, nausea, vomiting or any urinary symptoms. 04/28/2018. No acute events overnight. On my encounter patient is sitting on recliner and has his both extremities elevated. He said that he is feeling better and his left lower extremity pain has been minimizing. He had a good night sleep and he is p.o. tolerant. Denies any fever, chills, nausea, vomiting , abdominal pain, diarrhea, constipation or any urinary symptoms. 04/29/2018. No acute events overnight. On my encounter patient was having some mild nosebleeds which he stated was because after he was picking his nose. He denies any previous history of nosebleeds. She has been sitting in recliner and stating that his left lower extremity pain has improved. Patient still has some swelling of the left lower extremity but no sign of erythema. Patient is p.o. tolerant and tolerating hir p.o. medication. Patient was made aware of his anemia and he denies any external source of bleeding except for epistaxis today. Patient denies any fever, chills, nausea, vomiting, diarrhea, constipation or any urinary symptoms. 04/30/2018. Acute events overnight. On my encounter patient is resting in his bed with his left lower extremity elevated on a pillow. He stated that he is feeling better and denies any worsening left lower extremity pain, fever, chills , nausea, vomiting, diarrhea, constipation or any urinary symptoms. Epistaxis has resolved. He is waiting to be reevaluated to see if he needs further intervention. Reason For Visit: LEFT LEG CELLULITIS Physical Exam Vital Signs: Temp Pulse Resp BP Pulse Ox 98.3 F 77 22 H 156/86 H 94 04/30/18 07:26 04/30/18 07:26 04/30/18 07:26 04/30/18 07:26 04/30/18 07:26 Intake & Output 04/29/18 04/30/18 05/01/18 06:59 06:59 06:59 Intake Total 3250 2350 Output Total 5550 2700 Balance -2300 -350 Weight 127 kg 127.1 kg General appearance: PRESENT: no acute distress, well-developed, well-nourished Head exam: PRESENT: atraumatic, normocephalic Eye exam: PRESENT: conjunctiva pink, EOMI, PERRLA. ABSENT: scleral icterus Ear exam: PRESENT: normal external ear exam Mouth exam: PRESENT: moist, tongue midline Neck exam: ABSENT: carotid bruit, JVD, lymphadenopathy, thyromegaly Respiratory exam: PRESENT: clear to auscultation alban. ABSENT: rales, rhonchi, wheezes Cardiovascular exam: PRESENT: RRR. ABSENT: diastolic murmur, rubs, systolic murmur Pulses: PRESENT: normal dorsalis pedis pul Vascular exam: PRESENT: normal capillary refill GI/Abdominal exam: PRESENT: normal bowel sounds, soft. ABSENT: distended, guarding, mass, organolmegaly, rebound, tenderness Rectal exam: PRESENT: deferred Extremities exam: PRESENT: full ROM. ABSENT: calf tenderness, clubbing, pedal edema Musculoskeletal exam: PRESENT: full ROM, tenderness, other - Left lower extremity wound is clean however it is very tense possibly underlying myositis. Neurological exam: PRESENT: alert, awake, oriented to person, oriented to place , oriented to time, oriented to situation, CN II-XII grossly intact. ABSENT: motor sensory deficit Psychiatric exam: PRESENT: appropriate affect, normal mood. ABSENT: homicidal ideation, suicidal ideation Skin exam: PRESENT: dry, intact, warm. ABSENT: cyanosis, rash Results Laboratory Results: 04/29/18 05:26 04/29/18 05:26 04/24/18 12:22 Leg - Cellulitis Gram Stain - Final 04/24/18 12:22 Leg - Cellulitis Wound Culture - Final NO AEROBIC OR ANAEROBIC ORGANISMS RECOVERED Impressions: Lower Extremity MRI 04/23/18 00:00 IMPRESSION: Diffuse left lower leg cellulitis Abnormal fluid tracking along the deep and superficial aspect of the gastrocnemius muscle with abnormal muscle enhancement worrisome for myositis. No intramuscular abscess Mild edema and muscle enhancement, superficial surface tibialis anterior muscle worrisome for myositis. Assessment & Plan - Diagnosis (1) Cellulitis Qualifiers: Site of cellulitis: extremity Site of cellulitis of extremity: lower extremity Laterality: left Qualified Code(s): L03.116 - Cellulitis of left lower limb Is this a current diagnosis for this admission?: Yes Plan: Improving. Status post debridement on 04/24/2018. Lower extremity looks very tense which raises a question of possible myositis, unlikely compartment syndrome. Patient has been reevaluated by surgery and the plan is to restart him on IV ceftriaxone and Flagyl for possible debridement tomorrow. As per surgery also Ortho also be consulted. Wound culture on 04/22/2018 shows Staphylococcus hemolyticus and Enterobacter cloacae both sensitive to Bactrim. Patient received Vancomycin and Zosyn for total of 6 days but it was DC'd on 04/28/2018 as per ID recommendation. He was switched to switched to Bactrim to complete 10 days of total antibiotics. I personally talked with Dr. Georgi WETZEL over the phone. He suggested for his cellulitis could be due to staph or strep and staph hemolyticus could be a possible contamination. He suggested that he could be switched to either Keflex , Bactrim or clindamycin when clinically appropriate for a total of 7-10 days. (2) Deep vein thrombosis Is this a current diagnosis for this admission?: Yes Plan: Left popliteal DVT. Patient will be switched again back to heparin for possible intervention by surgery. Will restart Xarelto at 10 mg twice daily post surgery. Patient advised to follow-up with his PCP. Consult physical therapy. (3) Morbid obesity due to excess calories Is this a current diagnosis for this admission?: Yes Plan: Advised on diet and lifestyle modification. (4) Poison yolie Is this a current diagnosis for this admission?: Yes Plan: Extensive healing rash on bilateral lower extremity. Continue wound care. (5) HTN (hypertension) Is this a current diagnosis for this admission?: Yes Plan: Not controlled. Euvolemic. Increase amlodipine to 10 mg daily. Adjust medication as needed. Follow-up with PCP. (6) Anemia Is this a current diagnosis for this admission?: Yes Plan: Normocytic. Stable. Denies any external source of bleeding. Remain B12 and folic acid within normal limits. Iron panel suggestive of iron deficiency anemia. Stool guaiac negative. Started on ferrous sulfate twice daily. CMP tomorrow
[2018-04-30] MEDS: SULFAMETHOXAZOLE/TRIMETHOPRIM 800-160 MG TABLET PO SCH (12:51)
[2018-04-30] MEDS ORDERED: CEFTRIAXONE 2 GM/D5W RTU 2 GM/50 ML RTUPB IV SCH (13:00)
[2018-04-30] MEDS: CEFTRIAXONE SODIUM 2,000 MG in DEXTROSE 5%-WATER 100 ML IV SCH (14:01)
[2018-04-30] MEDS: METRONIDAZOLE 500 MG/NS RTU 500 MG/100 ML RTUPB IV SCH ×2 (15:19→22:19)
[2018-04-30] MEDS: MORPHINE SULFATE 10 MG/ML INJ INJ PRN (18:18)
[2018-04-30] MEDS: AMLODIPINE BESYLATE 5 MG TABLET PO SCH (18:18)
--- NOTE | 2018-04-30 18:29 | RADIOLOGY REPORT (SQ) ---
EXAM DESCRIPTION: MRI LT LOWER EXTREMITY COMBO COMPLETED DATE/TIME: 04/30/2018 5:50 pm REASON FOR STUDY: L leg, ask Radiologist about contrast, abscess COMPARISON: 04/23/2018 TECHNIQUE: Multiplanar imaging of the left lower leg to include T1-weighted, postcontrast T1-weighte d, and T2-weighted images. CONTRAST TYPE AND DOSE: 20 mL Dotarem. RENAL FUNCTION: GFR > 60. LIMITATIONS: None. FINDINGS: BONE MARROW: No marrow signal alteration. Specifically no marrow replacement or marrow ed negro. No evidence for osteomyelitis. No cortical break through. SOFT TISSUES: The continues to be diffuse cellulitis. Similar in appearance to previous. No focal a bscess collection. Some fluid continues to be present along the gastrocnemius muscle as seen previou sly but without a definitive abscess. No progression. OTHER: No other significant finding. IMPRESSION: No osteomyelitis. Cellulitis and mild enhancement along the gastrocnemius similar to pr evious but no progression. TECHNICAL DOCUMENTATION: JOB ID: [id number] [employer]- All Rights Reserved Reading location - IP/workstation name: [email or web address]
[2018-05-01] MEDS: METRONIDAZOLE 500 MG/NS RTU 500 MG/100 ML RTUPB IV SCH ×3 (05:08→22:33)
[2018-05-01] MEDS: OXYCODONE HCL SR 10 MG TABLET PO SCH ×2 (05:08→17:28)
[2018-05-01 05:46] LABS: ABSOLUTE BASOPHILS # (AUTO) 0.1 10^3/uL (0.0-0.2); ABSOLUTE EOSINOPHILS # (AUTO) 0.3 10^3/uL (0.0-0.6); ABSOLUTE LYMPHOCYTES (AUTO) 1.9 10^3/uL (0.5-4.7); ABSOLUTE MONOCYTES (AUTO) 0.8 10^3/uL (0.1-1.4); ABSOLUTE NEUT (AUTO) 4.9 10^3/uL (1.7-8.2); BASOPHILS % (AUTO) 1.1 % (0-2); EOSINOPHILS % (AUTO) 3.6 % (0-6); HEMATOCRIT 28.7 % (37.9-51.0); HEMOGLOBIN 9.8 g/dL (13.5-17.0); LYMPHOCYTES % (AUTO) 24.2 % (13-45); MEAN CORPUSCULAR HEMOGLOBIN 29.2 pg (27.0-33.4); MEAN CORPUSCULAR HGB CONC 34.1 g/dL (32.0-36.0); MEAN CORPUSCULAR VOLUME 86 fl (80-97); MONOCYTES % (AUTO) 10.3 % (3-13); PLATELET COUNT 743 10^3/uL (150-450); RED BLOOD COUNT 3.35 10^6/uL (4.35-5.55); RED CELL DISTRIBUTION WIDTH 13.7 % (11.5-14.0); SEGMENTED NEUTROPHILS % (AUTO) 60.8 % (42-78); TOTAL CELLS COUNTED % (AUTO) 100 %
[2018-05-01 06:05] LABS: ALANINE AMINOTRANSFERASE 28 U/L (21-72); ALBUMIN 2.7 g/dL (3.5-5.0); ALKALINE PHOSPHATASE 146 U/L (38-126); ANION GAP 9 (5-19); ASPARTATE AMINO TRANSFERASE 21 U/L (17-59); BILIRUBIN,DIRECT 0.2 mg/dL (0.0-0.4); BILIRUBIN,TOTAL 0.4 mg/dL (0.2-1.3); BLOOD UREA NITROGEN 15 mg/dL (7-20); CALCIUM 8.9 mg/dL (8.4-10.2); CARBON DIOXIDE 26 mmol/L (22-30); CHLORIDE 102 mmol/L (98-107); GLUCOSE 81 mg/dL (75-110); SODIUM 137.1 mmol/L (137-145); TOTAL PROTEIN 6.5 g/dL (6.3-8.2)
[2018-05-01] MEDS: FERROUS SULFATE 325 MG TABLET PO SCH ×2 (09:10→17:27)
[2018-05-01] MEDS: DOCUSATE SODIUM 100 MG CAPSULE PO SCH ×2 (09:10→17:27)
[2018-05-01] MEDS: CEFTRIAXONE SODIUM 2,000 MG in DEXTROSE 5%-WATER 100 ML IV SCH (09:10)
[2018-05-01 10:03] LABS: ABSOLUTE BASOPHILS # (AUTO) 0.1 10^3/uL (0.0-0.2); ABSOLUTE EOSINOPHILS # (AUTO) 0.3 10^3/uL (0.0-0.6); ABSOLUTE LYMPHOCYTES (AUTO) 1.8 10^3/uL (0.5-4.7); ABSOLUTE MONOCYTES (AUTO) 0.8 10^3/uL (0.1-1.4); ABSOLUTE NEUT (AUTO) 7.7 10^3/uL (1.7-8.2); EOSINOPHILS % (AUTO) 2.4 % (0-6); HEMATOCRIT 32.4 % (37.9-51.0); HEMOGLOBIN 10.8 g/dL (13.5-17.0); LYMPHOCYTES % (AUTO) 16.5 % (13-45); MEAN CORPUSCULAR HEMOGLOBIN 28.9 pg (27.0-33.4); MEAN CORPUSCULAR HGB CONC 33.5 g/dL (32.0-36.0); MEAN CORPUSCULAR VOLUME 87 fl (80-97); MONOCYTES % (AUTO) 7.7 % (3-13); PLATELET COUNT 751 10^3/uL (150-450); RED BLOOD COUNT 3.74 10^6/uL (4.35-5.55); RED CELL DISTRIBUTION WIDTH 14.3 % (11.5-14.0); SEGMENTED NEUTROPHILS % (AUTO) 72.4 % (42-78); TOTAL CELLS COUNTED % (AUTO) 100 %; WHITE BLOOD COUNT 10.7 10^3/uL (4.0-10.5)
[2018-05-01 10:09] LABS: INTERNATIONAL RATION (INR) 1.07; PROTHROMBIN TIME 14.5 SEC (11.4-15.4)
[2018-05-01 10:10] LABS: PARTIAL THROMBOPLASTIN TIME 42.9 SEC (23.5-35.8)
[2018-05-01] MEDS: HEPARIN SODIUM,PORCINE/D5W 25,000 UNIT/250 ML RTUINJ IV PRN ×3 (10:31→22:25)
--- NOTE | 2018-05-01 14:46 | PDOC PROGRESS REPORT ---
Subjective Progress Note for:: 05/01/18 Subjective:: depressed mood, but comfortable Reason For Visit: LEFT LEG CELLULITIS Physical Exam Vital Signs: Temp Pulse Resp BP Pulse Ox 98.2 F 93 16 141/80 H 96 05/01/18 11:09 05/01/18 11:09 05/01/18 11:09 05/01/18 11:09 05/01/18 11:09 Intake & Output 04/30/18 05/01/18 05/02/18 06:59 06:59 06:59 Intake Total 2350 1980 100 Output Total 2700 4060 Balance -350 -2080 100 Weight 127.1 kg 128.5 kg General appearance: PRESENT: no acute distress Extremities exam: PRESENT: other - left leg dressings C/D/I Results Laboratory Results: 05/01/18 09:29 05/01/18 04:32 05/01/18 05/01/18 05/01/18 04:32 04:32 09:29 WBC 8.0 10.7 H RBC 3.35 L 3.74 L Hgb 9.8 L 10.8 L Hct 28.7 L 32.4 L MCV 86 87 MCH 29.2 28.9 MCHC 34.1 33.5 RDW 13.7 14.3 H Plt Count 743 H 751 H Seg Neutrophils % 60.8 72.4 Lymphocytes % 24.2 16.5 Monocytes % 10.3 7.7 Eosinophils % 3.6 2.4 Basophils % 1.1 1.0 Absolute Neutrophils 4.9 7.7 Absolute Lymphocytes 1.9 1.8 Absolute Monocytes 0.8 0.8 Absolute Eosinophils 0.3 0.3 Absolute Basophils 0.1 0.1 Sodium 137.1 Potassium 5.0 Chloride 102 Carbon Dioxide 26 Anion Gap 9 BUN 15 Creatinine 0.92 Est GFR ( Amer) > 60 Est GFR (Non-Af Amer) > 60 Glucose 81 Calcium 8.9 Total Bilirubin 0.4 AST 21 ALT 28 Alkaline Phosphatase 146 H Total Protein 6.5 Albumin 2.7 L Impressions: Lower Extremity MRI 04/30/18 00:00 IMPRESSION: No osteomyelitis. Cellulitis and mild enhancement along the gastrocnemius similar to previous but no progression. Assessment & Plan - Diagnosis (2) Cellulitis Qualifiers: Site of cellulitis: extremity Site of cellulitis of extremity: lower extremity Laterality: left Qualified Code(s): L03.116 - Cellulitis of left lower limb Is this a current diagnosis for this admission?: Yes - Plan Summary Plan Summary: A/ left left cellulitis with skin necrosis and myositis repeated MRI done on 04/30/18 shows no worsening of cellulitis/myositis of gastrocnemious and no fluid collections to be drained P/ Debridment left leg skin tomorrow Procedure risks, benefits discussed with the patient, his questions were answered, and he decided to proceed NPO after MN tonight IVF NS 125 mL/hr Continue IV Abx as ordered (Ceftriaxone/Flagyl) Stop helarin at 2:00 Am tomorrow, no need to check PTT as per Anesthesia
--- NOTE | 2018-05-01 15:24 | PDOC PROGRESS REPORT ---
Subjective Progress Note for:: 05/01/18 Subjective:: 47-year-old male past medical history of hypertension and recent left leg DVT was admitted on 04/22/2018 worsening left leg cellulitis. Patient sustained a skin rash due to poison yolie and was prescribed antibiotics by his PCP and he was advised bedrest. Patient started to have progressive left lower extremity swelling and ultrasound by PCP showed left popliteal DVT and patient was started on Xarelto. Patient is a status post debridement of the left lower extremity on 04/24/2018. Left lower extremity MRI on 04/23/2018 showed diffuse left lower leg cellulitis abnormal fluid tracking along the deep and superficial aspect of the gastro anemias muscle with abnormal muscle enhancement possibly myositis. No intramuscular abscess was noted. No sign of osteomyelitis or necrotizing fasciitis. 04/27/2018. No acute events overnight. On my encounter patient is laying in bed not in any apparent distress however he is very anxious about his underlying medical condition. He is stating that he feels like his left lower extremity swelling is getting better however he is very concerned about " inflammation" and wants his Toradol to be given to him scheduled instead of as needed. Patient was counseled on the risk of NSAIDs and he voiced understanding. Denies any fever, chills, nausea, vomiting, chest pain, palpitation, diarrhea, constipation, nausea, vomiting or any urinary symptoms. 04/28/2018. No acute events overnight. On my encounter patient is sitting on recliner and has his both extremities elevated. He said that he is feeling better and his left lower extremity pain has been minimizing. He had a good night sleep and he is p.o. tolerant. Denies any fever, chills, nausea, vomiting , abdominal pain, diarrhea, constipation or any urinary symptoms. 04/29/2018. No acute events overnight. On my encounter patient was having some mild nosebleeds which he stated was because after he was picking his nose. He denies any previous history of nosebleeds. She has been sitting in recliner and stating that his left lower extremity pain has improved. Patient still has some swelling of the left lower extremity but no sign of erythema. Patient is p.o. tolerant and tolerating hir p.o. medication. Patient was made aware of his anemia and he denies any external source of bleeding except for epistaxis today. Patient denies any fever, chills, nausea, vomiting, diarrhea, constipation or any urinary symptoms. 04/30/2018. No acute events overnight. On my encounter patient is resting in his bed with his left lower extremity elevated on a pillow. He stated that he is feeling better and denies any worsening left lower extremity pain, fever, chills, nausea, vomiting, diarrhea, constipation or any urinary symptoms. Epistaxis has resolved. He is waiting to be reevaluated to see if he needs further intervention. 05/01/2018. No acute events overnight. Patient resting in bed having his left lower extremity elevated. Patient is concerned and waiting for surgical team for another I&D of his left lower extremity tomorrow. He is denying any pain, fever, chills, nausea, vomiting, diarrhea or any urinary symptoms. Reason For Visit: LEFT LEG CELLULITIS Physical Exam Vital Signs: Temp Pulse Resp BP Pulse Ox 98.2 F 93 16 141/80 H 96 05/01/18 11:09 05/01/18 11:09 05/01/18 11:09 05/01/18 11:09 05/01/18 11:09 Intake & Output 04/30/18 05/01/18 05/02/18 06:59 06:59 06:59 Intake Total 2350 1980 810 Output Total 2700 4060 1500 Balance -350 -8620 690 Weight 127.1 kg 128.5 kg Results Laboratory Results: 05/01/18 09:29 05/01/18 04:32 05/01/18 05/01/18 05/01/18 04:32 04:32 09:29 WBC 8.0 10.7 H RBC 3.35 L 3.74 L Hgb 9.8 L 10.8 L Hct 28.7 L 32.4 L MCV 86 87 MCH 29.2 28.9 MCHC 34.1 33.5 RDW 13.7 14.3 H Plt Count 743 H 751 H Seg Neutrophils % 60.8 72.4 Lymphocytes % 24.2 16.5 Monocytes % 10.3 7.7 Eosinophils % 3.6 2.4 Basophils % 1.1 1.0 Absolute Neutrophils 4.9 7.7 Absolute Lymphocytes 1.9 1.8 Absolute Monocytes 0.8 0.8 Absolute Eosinophils 0.3 0.3 Absolute Basophils 0.1 0.1 Sodium 137.1 Potassium 5.0 Chloride 102 Carbon Dioxide 26 Anion Gap 9 BUN 15 Creatinine 0.92 Est GFR ( Amer) > 60 Est GFR (Non-Af Amer) > 60 Glucose 81 Calcium 8.9 Total Bilirubin 0.4 AST 21 ALT 28 Alkaline Phosphatase 146 H Total Protein 6.5 Albumin 2.7 L Impressions: Lower Extremity MRI 04/30/18 00:00 IMPRESSION: No osteomyelitis. Cellulitis and mild enhancement along the gastrocnemius similar to previous but no progression. Assessment & Plan - Diagnosis (1) Cellulitis Qualifiers: Site of cellulitis: extremity Site of cellulitis of extremity: lower extremity Laterality: left Qualified Code(s): L03.116 - Cellulitis of left lower limb Is this a current diagnosis for this admission?: Yes Plan: Improving. Status post debridement on 04/24/2018. Lower extremity erythema and swelling is improving looks tense which raises a question of possible myositis, unlikely compartment syndrome. Patient has been reevaluated by surgery and the plan is to restart him on IV ceftriaxone and Flagyl for possible debridement on 05/02/2018. Patient is status post ORIF of the left lower extremity which does not show any progression of cellulitis/myositis. Wound culture on 04/22/2018 shows Staphylococcus hemolyticus and Enterobacter cloacae both sensitive to Bactrim. Patient received Vancomycin and Zosyn for total of 6 days but it was DC'd on 04/28/2018 as per ID recommendation. He was switched to switched to Bactrim to complete 10 days of total antibiotics. I personally talked with Dr. Georgi WETZEL over the phone. He suggested for his cellulitis could be due to staph or strep and staph hemolyticus could be a possible contamination. He suggested that he could be switched to either Keflex , Bactrim or clindamycin when clinically appropriate for a total of 7-10 days. (2) Deep vein thrombosis Is this a current diagnosis for this admission?: Yes Plan: Left popliteal DVT. Patient will be switched again back to heparin for possible intervention by surgery. Will restart Xarelto at 15 mg twice daily post surgery. Patient advised to follow-up with his PCP. Consult physical therapy. (3) Morbid obesity due to excess calories Is this a current diagnosis for this admission?: Yes Plan: Advised on diet and lifestyle modification. (4) Poison yolie Is this a current diagnosis for this admission?: Yes Plan: Improved. Extensive healing rash on bilateral lower extremity. Continue wound care. (5) HTN (hypertension) Is this a current diagnosis for this admission?: Yes Plan: Not controlled. Euvolemic. Increase amlodipine to 10 mg daily. Adjust medication as needed. Follow-up with PCP. (6) Anemia Is this a current diagnosis for this admission?: Yes Plan: Normocytic. Stable. Denies any external source of bleeding. Vitamin B12 and folic acid within normal limits. Iron panel suggestive of iron deficiency anemia. Stool guaiac negative. Started on ferrous sulfate twice daily. CMP tomorrow
[2018-05-01] MEDS ORDERED: HEPARIN SOD (PORCINE) 1,000 UNIT/ML 10 ML VIAL ONE (17:18)
[2018-05-01] MEDS: AMLODIPINE BESYLATE 5 MG TABLET PO SCH (17:27)
[2018-05-01] MEDS: MORPHINE SULFATE 10 MG/ML INJ IV PRN (17:39)
[2018-05-01] MEDS: KETOROLAC TROMETHAMINE INJ/PF 30 MG/1 ML SDV IV PRN (20:10)
[2018-05-02] MEDS ORDERED: NORMAL SALINE 1000 ML 1,000 ML IV PRN
[2018-05-02] MEDS: METRONIDAZOLE 500 MG/NS RTU 500 MG/100 ML RTUPB IV SCH ×3 (06:47→21:25)
[2018-05-02 07:13] LABS: ABSOLUTE BASOPHILS # (AUTO) 0.1 10^3/uL (0.0-0.2); ABSOLUTE EOSINOPHILS # (AUTO) 0.2 10^3/uL (0.0-0.6); ABSOLUTE LYMPHOCYTES (AUTO) 1.8 10^3/uL (0.5-4.7); ABSOLUTE MONOCYTES (AUTO) 0.7 10^3/uL (0.1-1.4); ABSOLUTE NEUT (AUTO) 5.2 10^3/uL (1.7-8.2); BASOPHILS % (AUTO) 0.7 % (0-2); EOSINOPHILS % (AUTO) 2.9 % (0-6); HEMATOCRIT 29.8 % (37.9-51.0); HEMOGLOBIN 10.2 g/dL (13.5-17.0); LYMPHOCYTES % (AUTO) 22.7 % (13-45); MEAN CORPUSCULAR HEMOGLOBIN 29.1 pg (27.0-33.4); MEAN CORPUSCULAR VOLUME 86 fl (80-97); MONOCYTES % (AUTO) 8.7 % (3-13); PLATELET COUNT 658 10^3/uL (150-450); RED BLOOD COUNT 3.49 10^6/uL (4.35-5.55); RED CELL DISTRIBUTION WIDTH 14.1 % (11.5-14.0); TOTAL CELLS COUNTED % (AUTO) 100 %
[2018-05-02 07:28] LABS: ALANINE AMINOTRANSFERASE 20 U/L (21-72); ALBUMIN 2.9 g/dL (3.5-5.0); ALKALINE PHOSPHATASE 134 U/L (38-126); ANION GAP 6 (5-19); ASPARTATE AMINO TRANSFERASE 15 U/L (17-59); BILIRUBIN,DIRECT 0.2 mg/dL (0.0-0.4); BILIRUBIN,TOTAL 0.5 mg/dL (0.2-1.3); BLOOD UREA NITROGEN 17 mg/dL (7-20); CALCIUM 9.1 mg/dL (8.4-10.2); CARBON DIOXIDE 26 mmol/L (22-30); CHLORIDE 105 mmol/L (98-107); GLUCOSE 98 mg/dL (75-110); POTASSIUM 4.7 mmol/L (3.6-5.0); SODIUM 137.3 mmol/L (137-145); TOTAL PROTEIN 6.7 g/dL (6.3-8.2)
[2018-05-02] MEDS ORDERED: FENTANYL CITRATE INJ/PF 100 MCG/2 ML AMPUL ONE (08:01)
[2018-05-02] MEDS ORDERED: ONDANSETRON HCL INJ/PF 4 MG/2 ML SDV ONE (08:01)
[2018-05-02] MEDS ORDERED: MIDAZOLAM 2 MG/2 ML INJ ONE (08:01)
[2018-05-02] MEDS ORDERED: PROPOFOL INJ 200 MG/20 ML VIAL IV ONE (08:01)
[2018-05-02] MEDS ORDERED: BUPIVACAINE HCL 0.5%-EPI 1:200000 INJ/PF 30 ML VIAL ONE (08:02)
[2018-05-02] MEDS ORDERED: MORPHINE SULFATE 10 MG/ML INJ IV PRN (08:32)
[2018-05-02] MEDS ORDERED: PROMETHAZINE HCL INJ 25 MG/1 ML VIAL IV PRN (08:32)
[2018-05-02] MEDS ORDERED: MEPERIDINE HCL/PF INJ 25 MG/1 ML DISP.SYRIN IV PRN (08:32)
[2018-05-02] MEDS ORDERED: DIPHENHYDRAMINE HCL 50 MG/ML VIAL IV PRN (08:32)
[2018-05-02] MEDS ORDERED: FENTANYL CITRATE INJ/PF 100 MCG/2 ML AMPUL IV PRN ×3 (08:32)
[2018-05-02] MEDS ORDERED: NEOMY/BACITRAC ZN/POLY OINT 15 GM ONE ×2 (08:34→08:46)
[2018-05-02] MEDS: FENTANYL CITRATE INJ/PF 100 MCG/2 ML AMPUL ONE ×2 (09:10→09:15)
--- NOTE | 2018-05-02 09:14 | Operative Report ---
Nonrecallable Operative Report DATE OF SURGERY: 05/02/18 PREOPERATIVE DIAGNOSIS: Cellulitis and myositis Left leg. s/p debridment left leg wounds POSTOPERATIVE DIAGNOSIS: same OPERATION: left leg wound sharp debridment x 3 SURGEON: JEWEL GORDILLO ANESTHESIA: LMAC TISSUE REMOVED OR ALTERED: postdebridment tissue sent for cx and gram stain COMPLICATIONS: none ESTIMATED BLOOD LOSS: 30 mL INTRAOPERATIVE FINDINGS: multiple (3) wounds, superficial with granulation, no evidence of skin necrosis PROCEDURE: see dictation
[2018-05-02] MEDS ORDERED: NEOMY/BACITRAC ZN/POLY OINT 15 GM TP PRN (10:04)
[2018-05-02] MEDS: CEFTRIAXONE SODIUM 2,000 MG in DEXTROSE 5%-WATER 100 ML IV SCH (10:05)
[2018-05-02] MEDS: DOCUSATE SODIUM 100 MG CAPSULE PO SCH ×2 (10:26→17:28)
[2018-05-02] MEDS: FERROUS SULFATE 325 MG TABLET PO SCH ×2 (10:26→17:28)
--- NOTE | 2018-05-02 15:57 | PDOC PROGRESS REPORT ---
Subjective Progress Note for:: 05/02/18 Subjective:: 47-year-old male past medical history of hypertension and recent left leg DVT was admitted on 04/22/2018 worsening left leg cellulitis. Patient sustained a skin rash due to poison yolie and was prescribed antibiotics by his PCP and he was advised bedrest. Patient started to have progressive left lower extremity swelling and ultrasound by PCP showed left popliteal DVT and patient was started on Xarelto. Patient is a status post debridement of the left lower extremity on 04/24/2018. Left lower extremity MRI on 04/23/2018 showed diffuse left lower leg cellulitis abnormal fluid tracking along the deep and superficial aspect of the gastro anemias muscle with abnormal muscle enhancement possibly myositis. No intramuscular abscess was noted. No sign of osteomyelitis or necrotizing fasciitis. 04/27/2018. No acute events overnight. On my encounter patient is laying in bed not in any apparent distress however he is very anxious about his underlying medical condition. He is stating that he feels like his left lower extremity swelling is getting better however he is very concerned about " inflammation" and wants his Toradol to be given to him scheduled instead of as needed. Patient was counseled on the risk of NSAIDs and he voiced understanding. Denies any fever, chills, nausea, vomiting, chest pain, palpitation, diarrhea, constipation, nausea, vomiting or any urinary symptoms. 04/28/2018. No acute events overnight. On my encounter patient is sitting on recliner and has his both extremities elevated. He said that he is feeling better and his left lower extremity pain has been minimizing. He had a good night sleep and he is p.o. tolerant. Denies any fever, chills, nausea, vomiting , abdominal pain, diarrhea, constipation or any urinary symptoms. 04/29/2018. No acute events overnight. On my encounter patient was having some mild nosebleeds which he stated was because after he was picking his nose. He denies any previous history of nosebleeds. She has been sitting in recliner and stating that his left lower extremity pain has improved. Patient still has some swelling of the left lower extremity but no sign of erythema. Patient is p.o. tolerant and tolerating hir p.o. medication. Patient was made aware of his anemia and he denies any external source of bleeding except for epistaxis today. Patient denies any fever, chills, nausea, vomiting, diarrhea, constipation or any urinary symptoms. 04/30/2018. No acute events overnight. On my encounter patient is resting in his bed with his left lower extremity elevated on a pillow. He stated that he is feeling better and denies any worsening left lower extremity pain, fever, chills, nausea, vomiting, diarrhea, constipation or any urinary symptoms. Epistaxis has resolved. He is waiting to be reevaluated to see if he needs further intervention. 05/01/2018. No acute events overnight. Patient resting in bed having his left lower extremity elevated. Patient is concerned and waiting for surgical team for another I&D of his left lower extremity tomorrow. He is denying any pain, fever, chills, nausea, vomiting, diarrhea or any urinary symptoms. 05/02/2018. Patient is back from operating room for the debridement of the left skin. He sitting comfortably in his leg recliner while having his left leg elevated. Stating that the procedure went well however does not know exactly what dated. He is denying any pain, fever, chills, nausea, vomiting, diarrhea, constipation or any urinary symptoms. Reason For Visit: LEFT LEG CELLULITIS Physical Exam Vital Signs: Temp Pulse Resp BP Pulse Ox 99 F 77 14 140/82 H 98 05/02/18 15:05 05/02/18 15:05 05/02/18 15:05 05/02/18 15:05 05/02/18 15:05 Intake & Output 05/01/18 05/02/18 05/03/18 06:59 06:59 06:59 Intake Total 1979 2057 772 Output Total 2582 2620 30 Balance -2079 742 Weight 128.5 kg General appearance: PRESENT: no acute distress, well-developed, well-nourished Eye exam: ABSENT: scleral icterus Teeth exam: PRESENT: dental caries, dental tenderness, edentulous, poor dentation, other Throat exam: PRESENT: post pharyngeal erythema, tonsillar erythema, tonsillar exudate, tonsillogmegaly, other Neck exam: PRESENT: full ROM, meningismus, tenderness, tracheal deviation, tracheostomy, other. ABSENT: carotid bruit, JVD, lymphadenopathy, thyromegaly Respiratory exam: PRESENT: clear to auscultation alban. ABSENT: rales, rhonchi, wheezes Cardiovascular exam: PRESENT: RRR. ABSENT: diastolic murmur, rubs, systolic murmur Pulses: PRESENT: normal dorsalis pedis pul Vascular exam: PRESENT: normal capillary refill GI/Abdominal exam: PRESENT: normal bowel sounds, soft. ABSENT: distended, guarding, mass, organolmegaly, rebound, tenderness Extremities exam: PRESENT: full ROM, other - Left lower extremity swelling has much improved. Patient is just back from the surgery and he has a new dressing. On the exposed skin area there is no sign of infection swelling or erythema.. ABSENT: calf tenderness, clubbing, pedal edema Neurological exam: PRESENT: alert, awake, oriented to person, oriented to place , oriented to time, oriented to situation, CN II-XII grossly intact. ABSENT: motor sensory deficit Psychiatric exam: PRESENT: appropriate affect, normal mood. ABSENT: homicidal ideation, suicidal ideation Skin exam: PRESENT: dry, intact, warm. ABSENT: cyanosis, rash Results Laboratory Results: 05/02/18 06:58 05/02/18 06:58 05/02/18 05/02/18 06:58 06:58 WBC 8.0 RBC 3.49 L Hgb 10.2 L Hct 29.8 L MCV 86 MCH 29.1 MCHC 34.0 RDW 14.1 H Plt Count 658 H Seg Neutrophils % 65.0 Lymphocytes % 22.7 Monocytes % 8.7 Eosinophils % 2.9 Basophils % 0.7 Absolute Neutrophils 5.2 Absolute Lymphocytes 1.8 Absolute Monocytes 0.7 Absolute Eosinophils 0.2 Absolute Basophils 0.1 Sodium 137.3 Potassium 4.7 Chloride 105 Carbon Dioxide 26 Anion Gap 6 BUN 17 Creatinine 0.87 Est GFR ( Amer) > 60 Est GFR (Non-Af Amer) > 60 Glucose 98 Calcium 9.1 Total Bilirubin 0.5 AST 15 L ALT 20 L Alkaline Phosphatase 134 H Total Protein 6.7 Albumin 2.9 L Impressions: Lower Extremity MRI 04/30/18 00:00 IMPRESSION: No osteomyelitis. Cellulitis and mild enhancement along the gastrocnemius similar to previous but no progression. Assessment & Plan - Diagnosis (1) Cellulitis Qualifiers: Site of cellulitis: extremity Site of cellulitis of extremity: lower extremity Laterality: left Qualified Code(s): L03.116 - Cellulitis of left lower limb Is this a current diagnosis for this admission?: Yes Plan: Improving. Status post debridement 05/02/2018 and 04/24/2018. Lower extremity erythema and swelling is improving looks tense which raises a question of possible myositis, unlikely compartment syndrome. Patient has supposed a second debridement restarted on IV ceftriaxone and Flagyl for debridement on 2017. Wound culture on 04/22/2018 shows Staphylococcus hemolyticus and Enterobacter cloacae both sensitive to Bactrim. Patient received Vancomycin and Zosyn for total of 6 days but it was DC'd on 04/28/2018 as per ID recommendation. He was switched to switched to Bactrim to complete 10 days of total antibiotics. I personally talked with Dr. Georgi WETZEL over the phone. He suggested for his cellulitis could be due to staph or strep and staph hemolyticus could be a possible contamination. He suggested that he could be switched to either Keflex , Bactrim or clindamycin when clinically appropriate for a total of 7-10 days. (2) Deep vein thrombosis Is this a current diagnosis for this admission?: Yes Plan: Left popliteal DVT. Patient will be switched again back to heparin for possible intervention by surgery. Will restart Xarelto at 15 mg twice daily post surgery. Patient advised to follow-up with his PCP. Consult physical therapy. (3) Morbid obesity due to excess calories Is this a current diagnosis for this admission?: Yes Plan: Advised on diet and lifestyle modification. (4) Poison yolie Is this a current diagnosis for this admission?: Yes Plan: Improved. Extensive healing rash on bilateral lower extremity. Continue wound care. (5) HTN (hypertension) Is this a current diagnosis for this admission?: Yes Plan: Controlled. Euvolemic. Increase amlodipine to 10 mg daily. Adjust medication as needed. Follow-up with PCP. (6) Anemia Is this a current diagnosis for this admission?: Yes Plan: Normocytic. Stable. Denies any external source of bleeding. Vitamin B12 and folic acid within normal limits. Iron panel suggestive of iron deficiency anemia. Stool guaiac negative. Started on ferrous sulfate twice daily. CMP tomorrow
[2018-05-02] MEDS: AMLODIPINE BESYLATE 5 MG TABLET PO SCH (17:28)
[2018-05-02] MEDS: MORPHINE SULFATE 10 MG/ML INJ IV PRN ×2 (17:49→23:19)
[2018-05-02] MEDS: RIVAROXABAN 15 MG TABLET PO SCH (21:25)
[2018-05-03] MEDS: METRONIDAZOLE 500 MG/NS RTU 500 MG/100 ML RTUPB IV SCH ×3 (05:08→21:34)
[2018-05-03 07:11] LABS: HEMATOCRIT 29.3 % (37.9-51.0); MEAN CORPUSCULAR VOLUME 85 fl (80-97); PLATELET COUNT 716 10^3/uL (150-450); RED BLOOD COUNT 3.44 10^6/uL (4.35-5.55); RED CELL DISTRIBUTION WIDTH 14.1 % (11.5-14.0); WHITE BLOOD COUNT 9.1 10^3/uL (4.0-10.5)
[2018-05-03 07:39] LABS: ALANINE AMINOTRANSFERASE 20 U/L (21-72); ALKALINE PHOSPHATASE 126 U/L (38-126); ANION GAP 9 (5-19); ASPARTATE AMINO TRANSFERASE 15 U/L (17-59); BILIRUBIN,DIRECT 0.3 mg/dL (0.0-0.4); BILIRUBIN,TOTAL 0.5 mg/dL (0.2-1.3); BLOOD UREA NITROGEN 18 mg/dL (7-20); CALCIUM 9.2 mg/dL (8.4-10.2); CARBON DIOXIDE 25 mmol/L (22-30); CHLORIDE 103 mmol/L (98-107); GLUCOSE 95 mg/dL (75-110); POTASSIUM 4.9 mmol/L (3.6-5.0); SODIUM 137.4 mmol/L (137-145); TOTAL PROTEIN 6.9 g/dL (6.3-8.2)
[2018-05-03] MEDS: MORPHINE SULFATE 10 MG/ML INJ IV PRN ×2 (11:20→16:03)
[2018-05-03] MEDS: CEFTRIAXONE SODIUM 2,000 MG in DEXTROSE 5%-WATER 100 ML IV SCH (11:20)
[2018-05-03] MEDS: FERROUS SULFATE 325 MG TABLET PO SCH ×2 (11:21→18:17)
[2018-05-03] MEDS: RIVAROXABAN 15 MG TABLET PO SCH ×2 (11:21→21:34)
[2018-05-03] MEDS: DOCUSATE SODIUM 100 MG CAPSULE PO SCH ×2 (11:22→18:18)
--- NOTE | 2018-05-03 14:41 | PDOC PROGRESS REPORT ---
Subjective Subjective:: Patient out of bed into chair; not walking; has not ambulated; has not showered Reason For Visit: LEFT LEG CELLULITIS Physical Exam Vital Signs: Temp Pulse Resp BP Pulse Ox 98.5 F 90 14 110/69 90 L 05/03/18 12:00 05/03/18 12:00 05/03/18 12:00 05/03/18 12:00 05/03/18 12:00 Intake & Output 05/02/18 05/03/18 05/04/18 06:59 06:59 06:59 Intake Total 2058 4122 Output Total 3830 3780 Balance -1772 342 Weight 126.5 kg General appearance: PRESENT: no acute distress Musculoskeletal exam: PRESENT: other - Left leg examined. Wraps removed. Edema markedly resolved. Debrided areas, no foul smell or active drainage. Intensive reepithelialization Results Laboratory Results: 05/03/18 06:05 05/03/18 06:05 05/03/18 05/03/18 06:05 06:05 WBC 9.1 RBC 3.44 L Hgb 10.0 L Hct 29.3 L MCV 85 MCH 29.0 MCHC 34.0 RDW 14.1 H Plt Count 716 H Sodium 137.4 Potassium 4.9 Chloride 103 Carbon Dioxide 25 Anion Gap 9 BUN 18 Creatinine 0.93 Est GFR ( Amer) > 60 Est GFR (Non-Af Amer) > 60 Glucose 95 Calcium 9.2 Total Bilirubin 0.5 AST 15 L ALT 20 L Alkaline Phosphatase 126 Total Protein 6.9 Albumin 3.0 L Impressions: Lower Extremity MRI 04/30/18 00:00 IMPRESSION: No osteomyelitis. Cellulitis and mild enhancement along the gastrocnemius similar to previous but no progression. Assessment & Plan - Diagnosis (1) Cellulitis Is this a current diagnosis for this admission?: Yes Plan: Impression: Markedly improved left lower extremity status post serial debridement, and intravenous antibiotics. 1. Continue local wound care with soap and water washes, Xeroform and Kerlix wrap 2. Patient can be discharged home from a surgical standpoint, can follow-[facility] with [facility] on an outpatient basis if necessary. (2) Deep vein thrombosis Is this a current diagnosis for this admission?: Yes
[2018-05-03] MEDS: OXYCODONE HCL SR 10 MG TABLET PO SCH (18:17)
[2018-05-03] MEDS: AMLODIPINE BESYLATE 5 MG TABLET PO SCH (18:18)
--- NOTE | 2018-05-03 18:48 | PDOC PROGRESS REPORT ---
Subjective Progress Note for:: 05/03/18 Subjective:: 47-year-old male past medical history of hypertension and recent left leg DVT was admitted on 04/22/2018 worsening left leg cellulitis. Patient sustained a skin rash due to poison yolie and was prescribed antibiotics by his PCP and he was advised bedrest. Patient started to have progressive left lower extremity swelling and ultrasound by PCP showed left popliteal DVT and patient was started on Xarelto. Patient is a status post debridement of the left lower extremity on 04/24/2018. Left lower extremity MRI on 04/23/2018 showed diffuse left lower leg cellulitis abnormal fluid tracking along the deep and superficial aspect of the gastro anemias muscle with abnormal muscle enhancement possibly myositis. No intramuscular abscess was noted. No sign of osteomyelitis or necrotizing fasciitis. 04/27/2018. No acute events overnight. On my encounter patient is laying in bed not in any apparent distress however he is very anxious about his underlying medical condition. He is stating that he feels like his left lower extremity swelling is getting better however he is very concerned about " inflammation" and wants his Toradol to be given to him scheduled instead of as needed. Patient was counseled on the risk of NSAIDs and he voiced understanding. Denies any fever, chills, nausea, vomiting, chest pain, palpitation, diarrhea, constipation, nausea, vomiting or any urinary symptoms. 04/28/2018. No acute events overnight. On my encounter patient is sitting on recliner and has his both extremities elevated. He said that he is feeling better and his left lower extremity pain has been minimizing. He had a good night sleep and he is p.o. tolerant. Denies any fever, chills, nausea, vomiting , abdominal pain, diarrhea, constipation or any urinary symptoms. 04/29/2018. No acute events overnight. On my encounter patient was having some mild nosebleeds which he stated was because after he was picking his nose. He denies any previous history of nosebleeds. She has been sitting in recliner and stating that his left lower extremity pain has improved. Patient still has some swelling of the left lower extremity but no sign of erythema. Patient is p.o. tolerant and tolerating hir p.o. medication. Patient was made aware of his anemia and he denies any external source of bleeding except for epistaxis today. Patient denies any fever, chills, nausea, vomiting, diarrhea, constipation or any urinary symptoms. 04/30/2018. No acute events overnight. On my encounter patient is resting in his bed with his left lower extremity elevated on a pillow. He stated that he is feeling better and denies any worsening left lower extremity pain, fever, chills, nausea, vomiting, diarrhea, constipation or any urinary symptoms. Epistaxis has resolved. He is waiting to be reevaluated to see if he needs further intervention. 05/01/2018. No acute events overnight. Patient resting in bed having his left lower extremity elevated. Patient is concerned and waiting for surgical team for another I&D of his left lower extremity tomorrow. He is denying any pain, fever, chills, nausea, vomiting, diarrhea or any urinary symptoms. 05/02/2018. Patient is back from operating room for the debridement of the left skin. He sitting comfortably in his leg recliner while having his left leg elevated. Stating that the procedure went well however does not know exactly what dated. He is denying any pain, fever, chills, nausea, vomiting, diarrhea, constipation or any urinary symptoms. 05/03/2018. Acute events overnight. Patient has been restarted on his anticoagulation. Surgery has signed off and patient can be discharged safely home to follow-up with surgery and also continue wound care as outpatient. He denies any fever, chills, nausea, vomiting, diarrhea, constipation or any urinary symptoms. Reason For Visit: LEFT LEG CELLULITIS Physical Exam Vital Signs: Temp Pulse Resp BP Pulse Ox 98.5 F 90 14 110/69 90 L 05/03/18 12:00 05/03/18 12:00 05/03/18 12:00 05/03/18 12:00 05/03/18 12:00 Intake & Output 05/02/18 05/03/18 05/04/18 06:59 06:59 06:59 Intake Total 5705 4122 Output Total 3830 3780 Balance -1772 342 Weight 126.5 kg General appearance: PRESENT: no acute distress, well-developed, well-nourished Respiratory exam: PRESENT: clear to auscultation alban. ABSENT: rales, rhonchi, wheezes Cardiovascular exam: PRESENT: RRR. ABSENT: diastolic murmur, rubs, systolic murmur GI/Abdominal exam: PRESENT: normal bowel sounds, soft. ABSENT: distended, guarding, mass, organolmegaly, rebound, tenderness Extremities exam: PRESENT: full ROM. ABSENT: calf tenderness - Left lower extremity cellulitis has improved significantly. No sign of erythema or any sign of infection., clubbing, pedal edema Results Laboratory Results: 05/03/18 06:05 05/03/18 06:05 05/03/18 05/03/18 06:05 06:05 WBC 9.1 RBC 3.44 L Hgb 10.0 L Hct 29.3 L MCV 85 MCH 29.0 MCHC 34.0 RDW 14.1 H Plt Count 716 H Sodium 137.4 Potassium 4.9 Chloride 103 Carbon Dioxide 25 Anion Gap 9 BUN 18 Creatinine 0.93 Est GFR ( Amer) > 60 Est GFR (Non-Af Amer) > 60 Glucose 95 Calcium 9.2 Total Bilirubin 0.5 AST 15 L ALT 20 L Alkaline Phosphatase 126 Total Protein 6.9 Albumin 3.0 L Impressions: Lower Extremity MRI 04/30/18 00:00 IMPRESSION: No osteomyelitis. Cellulitis and mild enhancement along the gastrocnemius similar to previous but no progression. Assessment & Plan - Diagnosis (1) Cellulitis Qualifiers: Site of cellulitis: extremity Site of cellulitis of extremity: lower extremity Laterality: left Qualified Code(s): L03.116 - Cellulitis of left lower limb Is this a current diagnosis for this admission?: Yes Plan: Improving. Status post debridement 05/02/2018 and 04/24/2018. Lower extremity erythema and swelling is improving looks tense which raises a question of possible myositis, unlikely compartment syndrome. Patient has supposed a second debridement restarted on IV ceftriaxone and Flagyl for debridement on 2017. Wound culture on 04/22/2018 shows Staphylococcus hemolyticus and Enterobacter cloacae both sensitive to Bactrim. Patient received Vancomycin and Zosyn for total of 6 days but it was DC'd on 04/28/2018 as per ID recommendation. He was switched to switched to Bactrim to complete 10 days of total antibiotics. I personally talked with Dr. Georgi WETZEL over the phone. He suggested for his cellulitis could be due to staph or strep and staph hemolyticus could be a possible contamination. He suggested that he could be switched to either Keflex , Bactrim or clindamycin when clinically appropriate for a total of 7-10 days. (2) Deep vein thrombosis Is this a current diagnosis for this admission?: Yes Plan: Left popliteal DVT. Patient will be switched again back to heparin for possible intervention by surgery. Will restart Xarelto at 15 mg twice daily post surgery. Patient advised to follow-up with his PCP. Consult physical therapy. (3) Morbid obesity due to excess calories Is this a current diagnosis for this admission?: Yes Plan: Advised on diet and lifestyle modification. (4) Poison yolie Is this a current diagnosis for this admission?: Yes Plan: Improved. Extensive healing rash on bilateral lower extremity. Continue wound care. (5) HTN (hypertension) Is this a current diagnosis for this admission?: Yes Plan: Controlled. Euvolemic. Increase amlodipine to 10 mg daily. Adjust medication as needed. Follow-up with PCP. (6) Anemia Is this a current diagnosis for this admission?: Yes Plan: Normocytic. Stable. Denies any external source of bleeding. Vitamin B12 and folic acid within normal limits. Iron panel suggestive of iron deficiency anemia. Stool guaiac negative. Started on ferrous sulfate twice daily. CMP tomorrow
[2018-05-04] MEDS: MORPHINE SULFATE 10 MG/ML INJ IV PRN (00:40)
[2018-05-04] MEDS: OXYCODONE HCL SR 10 MG TABLET PO SCH (05:02)
[2018-05-04] MEDS: METRONIDAZOLE 500 MG/NS RTU 500 MG/100 ML RTUPB IV SCH ×2 (05:03→14:53)
[2018-05-04 06:07] LABS: ABSOLUTE BASOPHILS # (AUTO) 0.1 10^3/uL (0.0-0.2); ABSOLUTE EOSINOPHILS # (AUTO) 0.1 10^3/uL (0.0-0.6); ABSOLUTE LYMPHOCYTES (AUTO) 2.6 10^3/uL (0.5-4.7); ABSOLUTE MONOCYTES (AUTO) 0.9 10^3/uL (0.1-1.4); ABSOLUTE NEUT (AUTO) 6.5 10^3/uL (1.7-8.2); EOSINOPHILS % (AUTO) 1.4 % (0-6); HEMATOCRIT 29.5 % (37.9-51.0); LYMPHOCYTES % (AUTO) 25.7 % (13-45); MEAN CORPUSCULAR HEMOGLOBIN 29.4 pg (27.0-33.4); MEAN CORPUSCULAR HGB CONC 34.1 g/dL (32.0-36.0); MEAN CORPUSCULAR VOLUME 86 fl (80-97); MONOCYTES % (AUTO) 8.8 % (3-13); PLATELET COUNT 625 10^3/uL (150-450); RED BLOOD COUNT 3.41 10^6/uL (4.35-5.55); RED CELL DISTRIBUTION WIDTH 14.1 % (11.5-14.0); SEGMENTED NEUTROPHILS % (AUTO) 63.1 % (42-78); TOTAL CELLS COUNTED % (AUTO) 100 %; WHITE BLOOD COUNT 10.3 10^3/uL (4.0-10.5)
[2018-05-04 06:40] LABS: ALANINE AMINOTRANSFERASE 18 U/L (21-72); ALKALINE PHOSPHATASE 112 U/L (38-126); ANION GAP 9 (5-19); ASPARTATE AMINO TRANSFERASE 16 U/L (17-59); BILIRUBIN,DIRECT 0.1 mg/dL (0.0-0.4); BILIRUBIN,TOTAL 0.3 mg/dL (0.2-1.3); BLOOD UREA NITROGEN 15 mg/dL (7-20); CARBON DIOXIDE 23 mmol/L (22-30); CHLORIDE 106 mmol/L (98-107); GLUCOSE 104 mg/dL (75-110); POTASSIUM 4.5 mmol/L (3.6-5.0); SODIUM 138.1 mmol/L (137-145); TOTAL PROTEIN 6.9 g/dL (6.3-8.2)
[2018-05-04] MEDS: FERROUS SULFATE 325 MG TABLET PO SCH (09:30)
[2018-05-04] MEDS: DOCUSATE SODIUM 100 MG CAPSULE PO SCH (09:30)
[2018-05-04] MEDS: CEFTRIAXONE SODIUM 2,000 MG in DEXTROSE 5%-WATER 100 ML IV SCH (09:30)
[2018-05-04] MEDS: RIVAROXABAN 15 MG TABLET PO SCH (09:30)
[2018-05-04 16:14] VITALS: BP 160/90
--- NOTE | 2018-05-04 17:21 | PDOC DISCHARGE SUMMARY ---
General - Admit/Disc Date/PCP Admission Date/Primary Care Provider: 04/22/18 21:59 Discharge Date: 05/04/18 - Discharge Diagnosis (1) Cellulitis Is this a current diagnosis for this admission?: Yes (2) Deep vein thrombosis Is this a current diagnosis for this admission?: Yes (3) Morbid obesity due to excess calories Is this a current diagnosis for this admission?: Yes - Additional Information Resuscitation Status: Full Code Discharge Diet: As Tolerated Prescriptions: Ferrous Sulfate [Feosol 325 mg Tablet] 325 mg PO DAILY #30 tablet Hydrochlorothiazide 25 mg PO DAILY #30 tablet Hydrocodone/Acetaminophen [[place] 5-325 mg Tablet] 1 tab PO Q8H PRN #10 tablet PRN Reason: Sulfamethoxazole/Trimethoprim [Bactrim Ds Tablet] 1 each PO Q12 5 Days #10 tablet Home Medications: Rivaroxaban [Xarelto] 15 mg PO Q12 04/23/18 Acetaminophen [Tylenol 325 mg Tablet] 650 mg PO Q4HP PRN tablet 05/04/18 Ferrous Sulfate [Feosol 325 mg Tablet] 325 mg PO DAILY #30 tablet 05/04/18 Hydrochlorothiazide 25 mg PO DAILY #30 tablet 05/04/18 Hydrocodone/Acetaminophen [[place] 5-325 mg Tablet] 1 tab PO Q8H PRN #10 tablet Sulfamethoxazole/Trimethoprim [Bactrim Ds Tablet] 1 each PO Q12 5 Days #10 tablet 05/04/18 History of Present Illness History of Present Illness: JENNIFER TODD is a 47 year old male with a past medical history of hypertension. Patient presents with left leg swelling pain and fever. His leg was initially inflamed and edematous following exposure to poison yolie 2 weeks ago however became acutely worse 5 days ago prompting emergency room evaluation at [facility]. He was diagnosed with a cellulitis and deep vein thrombosis, started on unknown antibiotic and Xarelto. Over the last 48 hours he has had worsening prompting a reevaluation at [facility]. He was found to have severe sepsis fever and leukocytosis of 25,000, and +4 edema to the left lower extremity. He receives vancomycin, Rocephin, and IV fluid challenge and referred to the hospitalist for admission. Patient admits compliance with antibiotic and Xarelto. He denies chest pain, shortness of breath, history of diabetes, IV drug use or previous episode of MRSA. Hospital Course Hospital Course: Mr. Todd is a 47 yr old male with a history of hypertension who recently sustained skin rashes from poison yolie and was also prescribed antibiotics. He was advised bedrest and had progressive swelling of the left leg. His PCP subsequently ordered a US doppler which revealed a left popliteal DVT. He was then started on Xarelto. He was admitted for worsening left leg cellulitis. He had an MRI which ruled out a necrotizing fasciitis. His DVT was also stable and did not show progression of thrombus. Surgery was consulted and patient underwent debridement of the left leg on 04/24/18. He was continued on broad spectrum IV antibiotics. He had another debridement done by surgery on 05/02/18. He did have significant clinical improvement. The erythema, tenderness and swelling significantly improved and patient was cleared by surgery for discharge. ID was also consulted an recommended 2 more days of antibiotics from yesterday. Wound cultures grew S. hemolyticus and enterobacter sensitive to Bactrim. He will be discharged Bactrim PO and will ff-up with Dr. Cardozo ( wound clinic). His amlodipine was also switched to HCTZ to reduce risk of worsening leg swelling. Physical Exam Vital Signs: Temp Pulse Resp BP Pulse Ox 98.2 F 73 18 160/90 H 95 05/04/18 15:33 05/04/18 15:33 05/04/18 15:33 05/04/18 15:33 05/04/18 15:33 Intake & Output 05/03/18 05/04/18 05/05/18 06:59 06:59 06:59 Intake Total 4122 3100 200 Output Total 3780 3200 Balance 342 -100 200 Weight 278 lb 14.156 oz 276 lb 0.3 oz General appearance: PRESENT: no acute distress, well-developed, well-nourished Head exam: PRESENT: atraumatic, normocephalic Eye exam: PRESENT: conjunctiva pink, EOMI, PERRLA. ABSENT: scleral icterus Ear exam: PRESENT: normal external ear exam Mouth exam: PRESENT: moist, tongue midline Neck exam: ABSENT: carotid bruit, JVD, lymphadenopathy, thyromegaly Respiratory exam: PRESENT: clear to auscultation alban. ABSENT: rales, rhonchi, wheezes Cardiovascular exam: PRESENT: RRR. ABSENT: diastolic murmur, rubs, systolic murmur Pulses: PRESENT: normal dorsalis pedis pul GI/Abdominal exam: PRESENT: normal bowel sounds, soft. ABSENT: distended, guarding, mass, organolmegaly, rebound, tenderness Rectal exam: PRESENT: deferred Extremities exam: PRESENT: other - significantly improved tenderness with minimal erythema now more localized on the lower aspect of the left leg, no active drainage Neurological exam: PRESENT: alert, awake, oriented to person, oriented to place , oriented to time, oriented to situation, CN II-XII grossly intact. ABSENT: motor sensory deficit Results Laboratory Results: 05/04/18 05:11 05/04/18 05:11 05/04/18 05/04/18 05:11 05:11 WBC 10.3 RBC 3.41 L Hgb 10.0 L Hct 29.5 L MCV 86 MCH 29.4 MCHC 34.1 RDW 14.1 H Plt Count 625 H Seg Neutrophils % 63.1 Lymphocytes % 25.7 Monocytes % 8.8 Eosinophils % 1.4 Basophils % 1.0 Absolute Neutrophils 6.5 Absolute Lymphocytes 2.6 Absolute Monocytes 0.9 Absolute Eosinophils 0.1 Absolute Basophils 0.1 Sodium 138.1 Potassium 4.5 Chloride 106 Carbon Dioxide 23 Anion Gap 9 BUN 15 Creatinine 0.78 Est GFR ( Amer) > 60 Est GFR (Non-Af Amer) > 60 Glucose 104 Calcium 9.0 Total Bilirubin 0.3 AST 16 L ALT 18 L Alkaline Phosphatase 112 Total Protein 6.9 Albumin 3.0 L Impressions: Lower Extremity MRI 04/30/18 00:00 IMPRESSION: No osteomyelitis. Cellulitis and mild enhancement along the gastrocnemius similar to previous but no progression. Qualifiers - * PATIENT BEING DISCHARGED WITH ANY OF THE FOLLOWING DIAGNOSIS: No
--- NOTE | 2018-05-19 09:26 | OPERATIVE REPORT E ---
Operative Report NAME: JENNIFER TODD : 1970 AGE: 47Y DATE OF SURGERY: 05/02/2018 ROOM: 415 PREOPERATIVE DIAGNOSES: 1. Cellulitis and myositis, left leg. 2. Status post edema into left leg wounds. POSTOPERATIVE DIAGNOSES: 1. Cellulitis and myositis, left leg. 2. Status post edema into left leg wounds. OPERATION: Left leg wound sharp debridement x3 measuring 20 x 30 cm in size. Debridement should be superficial debridement limited to epithelium and subcutaneous tissue. SURGEON: JEWEL GORDILLO M.D. QUALITY RN: None. ANESTHESIA: LMAC. ESTIMATED BLOOD LOSS: Minimal. COMPLICATIONS: None. INDICATIONS AND FINDINGS: This is a 47-year-old male who was admitted because of left leg erythema, edema, and pain from cellulitis as well as myositis of the left leg following initial episode of poison yolie contact dermatitis of the left leg. The patient underwent initial debridement to the left leg about a week ago and is scheduled to undergo second debridement of the left leg wounds today. DESCRIPTION OF PROCEDURE: The procedure was done in the operating room. The patient was in a supine position. IV sedation was provided by LMAC. The left lower extremity was prepped and draped in the usual fashion. The left leg wounds which were multiple and scattered throughout the anterior, lateral, medial, and posterior wall aspects of the left leg were superficially debrided using a knife and/or sharp instruments, obtaining good bleeding. The wounds appeared to be well granulating without evidence of drainage or foul smell. Following debridement a post-debridement tissue was obtained and sent to the lab for aerobic and anaerobic culture and Gram stain. After this all the wounds were covered with triple antibiotic ointment and Xeroform gauze. A sterile dressing was applied. The patient tolerated the procedure well and was transferred to the recovery room in satisfactory condition. DICTATING PHYSICIAN: JEWEL GORDILLO M.D. [id number] PHY#: [id number] ID: [id number] JOB#: [id number] ACCT: [id number] cc:JEWEL GORDILLO M.D. >
== END 2018-05-04 17:23 | disposition home or self-care (01) | DRG 603 ==
LOC: ER 16:44 → EH 21:59 → 4N 04-23 00:01
PROVIDERS: ADMIT Internal Medicine; ATTEND Internal Medicine
PROC: 0HBLXZZ Excision of Left Lower Leg Skin, External Approach (ICD-10-PCS; principal; 2018-04-24 11:00)
PROC: 0HDLXZZ Extraction of Left Lower Leg Skin, External Approach (ICD-10-PCS; 2018-05-02)
DX: L03.116 Cellulitis of left lower limb (principal); I82.432 Acute embolism and thrombosis of left popliteal vein; Z68.41 Body mass index [BMI] 40.0-44.9, adult; L23.7 Allergic contact dermatitis due to plants, except food; I10 Essential (primary) hypertension; M60.862 Other myositis, left lower leg; E66.01 Morbid (severe) obesity due to excess calories; B95.7 Other staphylococcus as the cause of diseases classified elsewhere; B96.89 Other specified bacterial agents as the cause of diseases classified elsewhere; D64.9 Anemia, unspecified; R04.0 Epistaxis; D72.828 Other elevated white blood cell count; Z87.891 Personal history of nicotine dependence; Z82.49 Family history of ischemic heart disease and other diseases of the circulatory system; Z79.02 Long term (current) use of antithrombotics/antiplatelets
CPT/HCPCS: 00400; 36415; 80048; 80053; 80202; 82272; 82607; 82728; 82746; 82803; 83036; 83540; 83550; 83605; 85025; 85027; 85045; 85610; 85730; 87040; 87070; 87075; 87077; 87186; 87205; 87493; 93005; 93010; 93971; 94640; 96365; 96367; 96375; 99284; A9576; J0696; J1644; J1885; J2250; J2270; J2405; J2543; J2704; J3010; J3370; J3490; J7030; J7060; J7620

== ENCOUNTER → 2018-05-11 | Outpatient (CLI) | payer BC ==
[2018-05-11 16:46] LABS: ABSOLUTE BASOPHILS # (AUTO) 0.1 10^3/uL (0.0-0.2); ABSOLUTE EOSINOPHILS # (AUTO) 0.5 10^3/uL (0.0-0.6); ABSOLUTE LYMPHOCYTES (AUTO) 3.3 10^3/uL (0.5-4.7); ABSOLUTE MONOCYTES (AUTO) 0.9 10^3/uL (0.1-1.4); ABSOLUTE NEUT (AUTO) 6.3 10^3/uL (1.7-8.2); EOSINOPHILS % (AUTO) 4.3 % (0-6); HEMOGLOBIN 11.9 g/dL (13.5-17.0); LYMPHOCYTES % (AUTO) 29.8 % (13-45); MEAN CORPUSCULAR HEMOGLOBIN 29.1 pg (27.0-33.4); MEAN CORPUSCULAR HGB CONC 33.9 g/dL (32.0-36.0); MEAN CORPUSCULAR VOLUME 86 fl (80-97); MONOCYTES % (AUTO) 8.2 % (3-13); PLATELET COUNT 520 10^3/uL (150-450); RED BLOOD COUNT 4.08 10^6/uL (4.35-5.55); RED CELL DISTRIBUTION WIDTH 13.6 % (11.5-14.0); SEGMENTED NEUTROPHILS % (AUTO) 56.7 % (42-78); TOTAL CELLS COUNTED % (AUTO) 100 %
[2018-05-11 17:11] LABS: ALANINE AMINOTRANSFERASE 18 U/L (21-72); ALBUMIN 4.1 g/dL (3.5-5.0); ALKALINE PHOSPHATASE 111 U/L (38-126); ANION GAP 16 (5-19); ASPARTATE AMINO TRANSFERASE 19 U/L (17-59); BILIRUBIN,DIRECT 0.2 mg/dL (0.0-0.4); BILIRUBIN,TOTAL 0.4 mg/dL (0.2-1.3); BLOOD UREA NITROGEN 20 mg/dL (7-20); CARBON DIOXIDE 27 mmol/L (22-30); CHLORIDE 98 mmol/L (98-107); GLUCOSE 108 mg/dL (75-110); POTASSIUM 5.3 mmol/L (3.6-5.0); SODIUM 140.7 mmol/L (137-145); TOTAL PROTEIN 8.3 g/dL (6.3-8.2)
[2018-05-11 17:37] LABS: ERYTHROCYTE SEDIMENTATION RATE 104 mm/hr (0-15)
== END ==
LOC: OD 15:15
PROVIDERS: ATTEND Nurse Practitioner
DX: L97.221 Non-pressure chronic ulcer of left calf limited to breakdown of skin (principal)
CPT/HCPCS: 36415; 80053; 85025; 85652; 86140

== ENCOUNTER → 2018-05-18 | Outpatient (CLI) | payer BC ==
--- NOTE | 2018-05-19 16:32 | XCELERA REPORT ---
[address] [address] Lower Extremity Arterial Evaluation Name: JENNIFER TODD Age: 48 yrs Gender: Male : 1970 Patient Status: Outpatient Patient Location: Study Date: 05/18/2018 09:25 AM Procedure: A color flow and duplex scan of the lower extremity arteries was performed bilaterally with velocity and waveform anaylsis. Reason For Study: ULCER Ordering Physician: TITI HAZEL Performed By: José Miguel Morales Measurements and Calculations Right Left TRAVEL OT PSV 87.7 76.1 cm/sec Prox PFA PSV -37.3 -39.3 cm/sec Prox Pop A PSV 50.3 49.9 cm/sec Dist SANJU PSV 84.3 65.5 cm/sec Dist QUAL FIELD MANAGER PSV 118.2 84.0 cm/sec Mode Pedis PSV -129.6 -155.6cm/sec Right Side Arterial Evaluation Normal velocity and triphasic waveforms noted from the Common Femoral artery to the infrageniculate vessels. 0% stenosis. Ankle Brachial index was not done. Left Side Arterial Evaluation Normal velocity and triphasic waveforms noted from the Common Femoral artery to the infrageniculate vessels. 0% stenosis. Ankle Brachial index was not done due to presence of wound. Interpretation Summary No hemodynamically significant lesions in the bilateral lower extremities, on duplex imaging, at rest. : TITI HAZEL > Ced Cardozo
--- NOTE | 2018-05-19 16:39 | XCELERA REPORT ---
[address] [address] Lower Extremity Venous Evaluation Procedure: A bilateral duplex scan of the lower extremity veins was performed. The evaluation included responses to compression and other maneuvers with patient in the supine and standing positions to assess venous insufficiency. Right Sided Venous Evaluation Deep venous system evaluatiion shows patent veins with no obstruction or significant reflux identified. Sapheno Femoral junction: no reflux. Femoral vein reflux: no reflux. Greater Saphenous vein, Proximal thigh: reflux: no reflux. Greater Saphenous vein, Distal thigh: reflux: no reflux. Greater Saphenous vein, Proximal below knee: reflux: no reflux. No significant Perforators identified. Left Sided Venous Evaluation Deep venous system evaluation shows patent veins except for partial obstruction compression, echogenic material in lumen at the Popliteal vein. No significant reflux identified. Saphena Femoral junction: 0.6 second reflux. Greater Saphenous vein, Proximal thigh: reflux: 2.5seconds, 9.2 mm diameter. Greater Saphenous vein, Mid thigh: reflux: 3.2 seconds,7.7 mm diameter. Greater Saphenous vein, Distal thigh: reflux: 1.6 seconds.7.7 ,. Greater Saphenous vein, Proximal below knee: reflux: No reflux. No significant Perforators identified. 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 Left Greater Saphenous reflux as noted.,. Name: JENNIFER TODD Age: 48 yrs Gender: Male : 1970 Patient Status: Outpatient Patient Location: Study Date: 05/18/2018 09:56 AM Reason For Study: ULCER Ordering Physician: TITI HAZEL Performed By: José Miguel Morales : TITI HAZEL > Ced Cardozo
== END ==
LOC: SP 09:02
PROVIDERS: ATTEND Nurse Practitioner
DX: L97.221 Non-pressure chronic ulcer of left calf limited to breakdown of skin (principal)
CPT/HCPCS: 93925; 93970

== ENCOUNTER 2020-03-21 11:11 | Observation (INO) | payer BC ==
[~2020-03-21 11:11] MED LIST: DEXAMETHASONE SOD PHOSPHATE INJ 4 MG/1 ML VIAL ONE; GLYCOPYRROLATE 1 MG/5 ML VIAL ONE; NEOSTIGMINE METHYLSULFATE 10 MG/10 ML VIAL ONE; ONDANSETRON HCL INJ/PF 4 MG/2 ML SDV ONE; ROCURONIUM BROMIDE INJ 50 MG/5 ML VIAL IV ONE; SUCCINYLCHOLINE CHLORIDE INJ 200 MG/10 ML VIAL ONE
[2020-03-21] MEDS ORDERED: ONDANSETRON 4 MG TAB.RAPDIS PO ONE (11:46)
[2020-03-21] MEDS ORDERED: NORMAL SALINE 1000 ML 1,000 ML IV ONE ×2 (11:47→18:43)
--- NOTE | 2020-03-21 11:49 | ER Document Report ---
ED Medical Screen (RME) - General Chief Complaint: Abdominal Pain Stated Complaint: ABDOMINAL PAIN Time Seen by Provider: 03/21/20 11:43 Primary Care Provider: TITI HAZEL NP [Primary Care Provider] - Follow up as needed Mode of Arrival: Ambulatory Information source: Patient Notes: 49-year-old male presented to ED for right upper quadrant abdominal pain that radiates to the center and around to the other side. He states he did vomit yesterday. He has had no vomiting or no diarrhea and no appetite. He states he has not eaten in at least 24 hours. He does have a water bottle with him. He states he is having some trouble drinking now. He is alert oriented respirations regular nonlabored. He states she has never had abdominal pain like this before he states he does smoke 3 to 4 cigarettes a day drinks 3 to 4 days a week and does not use any illicit drugs. He states he does have a history of cellulitis to the left leg and left hip replacement twice because they messed up the first 1. I have greeted and performed a rapid initial assessment of this patient. A comprehensive ED assessment and evaluation of the patient, analysis of test results and completion of medical decision making process will be conducted by an additional ED providers. TRAVEL OUTSIDE OF THE [place] IN LAST 30 DAYS: No - Related Data Allergies/Adverse Reactions: No Known Allergies Allergy (Verified 03/21/20 11:41) Past Medical History - Past Medical History Cardiac Medical History: Reports: Hx Hypertension Renal/ Medical History: Denies: Hx Peritoneal Dialysis Physical Exam - Vital signs Vitals: Temp Pulse Resp BP Pulse Ox 98.1 F 86 22 H 157/93 H 98 03/21/20 11:15 03/21/20 11:15 03/21/20 11:15 03/21/20 11:15 03/21/20 11:15 Course - Vital Signs Vital signs: Temp Pulse Resp BP Pulse Ox 98.1 F 86 22 H 157/93 H 98 03/21/20 11:15 03/21/20 11:15 03/21/20 11:15 03/21/20 11:15 03/21/20 11:15 Doctor's Discharge - Discharge Referrals: TITI HAZEL NP [Primary Care Provider] - Follow up as needed
[2020-03-21 12:15] LABS: ABSOLUTE BASOPHILS # (AUTO) 0.1 10^3/uL (0.0-0.2); ABSOLUTE LYMPHOCYTES (AUTO) 1.9 10^3/uL (0.5-4.7); ABSOLUTE MONOCYTES (AUTO) 1.4 10^3/uL (0.1-1.4); ABSOLUTE NEUT (AUTO) 15.1 10^3/uL (1.7-8.2); BASOPHILS % (AUTO) 0.5 % (0-2); HEMATOCRIT 42.7 % (37.9-51.0); HEMOGLOBIN 14.7 g/dL (13.5-17.0); LYMPHOCYTES % (AUTO) 10.2 % (13-45); MEAN CORPUSCULAR HEMOGLOBIN 30.3 pg (27.0-33.4); MEAN CORPUSCULAR HGB CONC 34.4 g/dL (32.0-36.0); MEAN CORPUSCULAR VOLUME 88 fl (80-97); MONOCYTES % (AUTO) 7.8 % (3-13); PLATELET COUNT 289 10^3/uL (150-450); RED BLOOD COUNT 4.84 10^6/uL (4.35-5.55); RED CELL DISTRIBUTION WIDTH 13.9 % (11.5-14.0); SEGMENTED NEUTROPHILS % (AUTO) 81.5 % (42-78); TOTAL CELLS COUNTED % (AUTO) 100 %; WHITE BLOOD COUNT 18.6 10^3/uL (4.0-10.5)
[2020-03-21 12:22] LABS: APPEARANCE,URINE CLEAR; BILIRUBIN,URINE NEGATIVE (NEGATIVE); COLOR,URINE YELLOW; GLUCOSE, URINE NEGATIVE (NEGATIVE); KETONES,URINE NEGATIVE (NEGATIVE); LEUKOCYTE ESTERASE,URINE NEGATIVE (NEGATIVE); NITRITE,URINE NEGATIVE (NEGATIVE); PROTEIN,URINE NEGATIVE (NEGATIVE); URINE SPECIFIC GRAVITY 1.016; UROBILINOGEN,URINE NEGATIVE mg/dL (<2.0)
[2020-03-21 12:34] LABS: ALBUMIN 4.2 g/dL (3.5-5.0); ALKALINE PHOSPHATASE 72 U/L (38-126); ANION GAP 8 (5-19); ASPARTATE AMINO TRANSFERASE 18 U/L (17-59); BILIRUBIN,DIRECT 0.2 mg/dL (0.0-0.4); BILIRUBIN,TOTAL 0.8 mg/dL (0.2-1.3); BLOOD UREA NITROGEN 17 mg/dL (7-20); CARBON DIOXIDE 25 mmol/L (22-30); CHLORIDE 104 mmol/L (98-107); GLUCOSE 125 mg/dL (75-110); POTASSIUM 4.7 mmol/L (3.6-5.0); TOTAL PROTEIN 7.3 g/dL (6.3-8.2)
--- NOTE | 2020-03-21 12:53 | RADIOLOGY REPORT (SQ) ---
EXAM DESCRIPTION: U/S ABDOMEN LIMITED W/O DOP IMAGES COMPLETED DATE/TIME: 03/21/2020 12:34 pm REASON FOR STUDY: Right upper quadrant abdominal pain that radiates. COMPARISON: None. TECHNIQUE: Dynamic and static grayscale images acquired of the abdomen and recorded on PACS. Additio nal selected color Doppler and spectral images recorded. LIMITATIONS: Limited visualization due to overlying bowel. FINDINGS: PANCREAS: The pancreas is obscured by overlying bowel. LIVER: Increased echogenicity of the hepatic parenchyma. LIVER VASCULATURE: Hepatopetal directional flow in the portal veins. GALLBLADDER: The gallbladder wall measures 2 mm in thickness. There is no cholelithiasis, sludge or pericholecystic fluid. ULTRASOUND-DETECTED ZAZUETA'S SIGN: Negative. INTRAHEPATIC DUCTS AND COMMON DUCT: The common bile duct measures 4 mm in diameter. There is no dila tation of the intrahepatic ducts. INFERIOR VENA CAVA: Not assessed. AORTA: No aneurysm. RIGHT KIDNEY: The right kidney measures 11.2 cm in length. There is no hydronephrosis. PERITONEAL AND RIGHT PLEURAL SPACE: No ascites or effusions. OTHER: No other findings. IMPRESSION: 1. Increased echogenicity of hepatic parenchyma suggestive of underlying hepatic steato sis. 2. The pancreas is obscured by overlying bowel. 3. The gallbladder is normal in appearance. TECHNICAL DOCUMENTATION: JOB ID: [id number] 2010 [employer]- All Rights Reserved Reading location - IP/workstation name: [email or web address]
[2020-03-21] MEDS ORDERED: MORPHINE SULFATE 10 MG/ML INJ IV ONE (17:22)
--- NOTE | 2020-03-21 17:24 | ER Document Report ---
ED GI/ - General Chief Complaint: Abdominal Pain Stated Complaint: ABDOMINAL PAIN Time Seen by Provider: 03/21/20 11:43 Primary Care Provider: TITI HAZEL PUBLIC INFORMATION RELATIONS MANAGER [ALLIED HEALTH PROFESSIONAL] - Follow up as needed Mode of Arrival: Ambulatory Information source: Patient Notes: Patient presents with a 3-day history of right lower quadrant pain that worsened today. Patient reports nausea and vomiting yesterday. No diarrhea. Patient reports decreased appetite. Patient denies any urinary symptoms. TRAVEL OUTSIDE OF THE [place] IN LAST 30 DAYS: No - HPI Patient complains to provider of: Abdominal pain Timing/Duration: Worse Quality of pain: Sharp Pain Level: 4 Location: RLQ Associated symptoms: Loss of appetite, Nausea, Vomiting. denies: Urinary hesitancy, Urinary frequency, Urinary retention, Urinary urgency Exacerbated by: Movement Relieved by: Denies Similar symptoms previously: No Recently seen / treated by doctor: No - Related Data Allergies/Adverse Reactions: No Known Allergies Allergy (Verified 03/21/20 11:41) Past Medical History - General Information source: Patient - Social History Smoking Status: Current Every Day Smoker Chew tobacco use (# tins/day): No Frequency of alcohol use: Social Drug Abuse: None Occupation: [employer] Family History: Hypertension Patient has homicidal ideation: No - Past Medical History Cardiac Medical History: Reports: Hx Hypertension Renal/ Medical History: Denies: Hx Peritoneal Dialysis Past Surgical History: Reports: Hx Orthopedic Surgery Review of Systems - Review of Systems Constitutional: No symptoms reported EENT: No symptoms reported Cardiovascular: No symptoms reported Respiratory: No symptoms reported. denies: Cough Gastrointestinal: Abdominal pain, Nausea, Vomiting. denies: Diarrhea Genitourinary: No symptoms reported Male Genitourinary: No symptoms reported Musculoskeletal: No symptoms reported Skin: No symptoms reported Hematologic/Lymphatic: No symptoms reported Neurological/Psychological: No symptoms reported Physical Exam - Vital signs Vitals: Temp Pulse Resp BP Pulse Ox 98.1 F 86 22 H 157/93 H 98 03/21/20 11:15 03/21/20 11:15 03/21/20 11:15 03/21/20 11:15 03/21/20 11:15 - Notes Notes: PHYSICAL EXAMINATION: GENERAL: Well-appearing and in no acute distress. HEAD: Atraumatic, normocephalic. EYES: sclera anicteric, conjunctiva are normal. ENT: nares patent. Moist mucous membranes. NECK: Normal range of motion, supple without lymphadenopathy LUNGS: CTAB and equal. No wheezes rales or rhonchi. HEART: Regular rate and rhythm without murmurs ABDOMEN: Soft, right lower quadrant tenderness with guarding, normal bowel sounds. EXTREMITIES: Normal range of motion, no pitting edema. No cyanosis. BACK: No CVA tenderness NEUROLOGICAL: Cranial nerves grossly intact. Normal speech. PSYCH: Normal mood, normal affect. SKIN: Warm, Dry, normal turgor, no rashes or lesions noted Course - Re-evaluation Re-evalutation: 03/21/20 18:33 Patient with appendicitis noted on CT scan. Call placed to surgeon who is currently in a case and will call back. 03/21/20 18:[address] Frost who requests that patient be given 2 g of Rocephin, 900 mg of clindamycin and maintenance IV fluids of normal saline at 150 an hour. He also requests an EKG be performed at this time. 03/21/20 18:58 Dr. Frost in to examine patient. - Vital Signs Vital signs: Temp Pulse Resp BP Pulse Ox 98.5 F 72 18 161/98 H 98 03/21/20 19:12 03/21/20 19:12 03/21/20 19:12 03/21/20 19:12 03/21/20 19:12 - Laboratory Result Diagrams: 03/21/20 11:52 03/21/20 11:52 Laboratory results interpreted by me: 03/21/20 03/21/20 03/21/20 11:52 11:52 11:52 WBC 18.6 H Lymph % (Auto) 10.2 L Absolute Neuts (auto) 15.1 H Seg Neutrophils % 81.5 H Glucose 125 H Urine Blood SMALL H 03/21/20 18:32 Labs- All tests 24 hr 03/21/20 03/21/20 03/21/20 11:52 11:52 11:52 WBC 18.6 H RBC 4.84 Hgb 14.7 Hct 42.7 MCV 88 MCH 30.3 MCHC 34.4 RDW 13.9 Plt Count 289 Lymph % (Auto) 10.2 L [place] % (Auto) 7.8 Eos % (Auto) 0.0 Baso % (Auto) 0.5 Absolute Neuts (auto) 15.1 H Absolute Lymphs (auto) 1.9 Absolute Monos (auto) 1.4 Absolute Eos (auto) 0.0 Absolute Basos (auto) 0.1 Seg Neutrophils % 81.5 H Sodium 137.3 Potassium 4.7 Chloride 104 Carbon Dioxide 25 Anion Gap 8 BUN 17 Creatinine 0.96 Est GFR ( Amer) > 60 Est GFR (MDRD) Non-Af > 60 Glucose 125 H Calcium 10.0 Total Bilirubin 0.8 Direct Bilirubin 0.2 Neonat Total Bilirubin Not Reportable Neonat Direct Bilirubin Not Reportable Neonat Indirect Bili Not Reportable AST 18 ALT 16 Alkaline Phosphatase 72 Total Protein 7.3 Albumin 4.2 Lipase 28.0 Urine Color YELLOW Urine Appearance CLEAR Urine pH 6.0 Ur Specific [place] 1.016 Urine Protein NEGATIVE Urine Glucose (UA) NEGATIVE Urine Ketones NEGATIVE Urine Blood SMALL H Urine Nitrite NEGATIVE Urine Bilirubin NEGATIVE Urine Urobilinogen NEGATIVE Ur Leukocyte Esterase NEGATIVE Urine WBC (Auto) 0 Urine RBC (Auto) 1 Urine Mucus (Auto) RARE Urine Ascorbic Acid NEGATIVE - Diagnostic Test Radiology reviewed: Reports reviewed - EKG Interpretation by Tn EKG shows normal: Sinus rhythm [place]/QRS: RBBB When compared to previous EKG there are: No significant change Additional EKG results interpreted by dc: 03/21/20 18:59 Sinus rhythm with a rate of 71, QTc 466, no acute ischemic changes, no significant change when compared to prior EKG. Discharge - Discharge Clinical Impression: Leukocytosis Qualifiers: Leukocytosis type: unspecified Qualified Code(s): D72.829 - Elevated white blood cell count, unspecified Appendicitis Qualifiers: Appendicitis type: acute appendicitis Acute appendicitis type: with localized peritonitis Qualified Code(s): K35.80 - Unspecified acute appendicitis Condition: Fair Disposition: ADMITTED INPATIENT Admitting Provider: Surgicalist Unit Admitted: Surgical Floor Referrals: TITI HAZEL NP [ALLIED HEALTH PROFESSIONAL] - Follow up as needed
[2020-03-21] MEDS ORDERED: ONDANSETRON HCL INJ/PF 4 MG/2 ML SDV IV ONE (18:00)
--- NOTE | 2020-03-21 18:28 | RADIOLOGY REPORT (SQ) ---
EXAM DESCRIPTION: CT ABD/PELVIS WITH IV ONLY IMAGES COMPLETED DATE/TIME: 03/21/2020 6:08 pm REASON FOR STUDY: RLQ pain COMPARISON: 03/21/2020 abdominal ultrasound TECHNIQUE: CT scan of the abdomen and pelvis performed using helical scanning technique with dynamic intravenous contrast injection. No oral contrast. Images reviewed with lung, soft tissue, and bone windows. Reconstructed coronal and sagittal MPR images reviewed. Delayed images for evaluation of the urinary system also acquired. All images stored on PACS. All CT scanners at this facility use dose modulation, iterative reconstruction, and/or weight based d osing when appropriate to reduce radiation dose to as low as reasonably achievable (ALARA). [facility]: Dose Right [facility]: CareDose [facility]: Dose Right [facility]: Teradose 4D [facility]: FlightOffice CONTRAST TYPE AND DOSE: contrast/concentration: Isovue 350.00 mmol/ml; Total Contrast Delivered: 100 .0 ml; Total Saline Delivered: 72.0 ml RENAL FUNCTION: BUN 17; creatinine 0.96 RADIATION DOSE: CT Rad equipment meets quality standard of care and radiation dose reduction techniq ues were employed. CTDIvol: 18.7 - 20.9 mGy. DLP: 2471 mGy-cm.. LIMITATIONS: None. FINDINGS: LOWER CHEST: No significant findings. No nodules or infiltrates. LIVER: Hepatic steatosis. No focal mass lesion. No intrahepatic biliary dilatation. SPLEEN: Normal size. No focal lesions. PANCREAS: No masses. No significant calcifications. No adjacent inflammation or peripancreatic fluid collections. Pancreatic duct not dilated. GALLBLADDER: No identified stones by CT criteria. No inflammatory changes to suggest cholecystitis. ADRENAL GLANDS: No significant masses or asymmetry. RIGHT KIDNEY AND URETER: No solid masses. No significant calcifications. No hydronephrosis or hyd roureter. LEFT KIDNEY AND URETER: No solid masses. No significant calcifications. No hydronephrosis or hydr oureter. AORTA AND VESSELS: No aneurysm. No dissection. Renal arteries, SMA, celiac without stenosis. RETROPERITONEUM: No retroperitoneal adenopathy, hemorrhage or masses. BOWEL AND PERITONEAL CAVITY: No masses or inflammatory changes. No free fluid or peritoneal masses. APPENDIX: The appendix is edematous measuring up to 17 mm in greatest orthogonal dimension noting a p roximal appendicolith and surrounding mesenteric inflammatory changes. PELVIS: No mass. No free fluid. Normal bladder. ABDOMINAL WALL: Tiny fat containing umbilical hernia. BONES: Status post left total hip arthroplasty. Degenerative changes are seen of the right hip and s pine. OTHER: No other significant finding. IMPRESSION: Uncomplicated appendicitis. TECHNICAL DOCUMENTATION: JOB ID: [id number] Quality ID # [id number]: Final reports with documentation of one or more dose reduction techniques (e.g., Au tomated exposure control, adjustment of the mA and/or kV according to patient size, use of iterative reconstruction technique) 2010 [employer]- All Rights Reserved Reading location - IP/workstation name: [email or web address]
[2020-03-21] MEDS ORDERED: PIPERACILLIN/TAZOBACTAM 3.375 GM VIAL IV ONE (18:31)
[2020-03-21] MEDS ORDERED: CEFTRIAXONE 2 GM/D5W RTU 2 GM/50 ML RTUPB IV ONE (18:43)
[2020-03-21] MEDS ORDERED: CLINDAMYCIN 900 MG/D5W RTU 900 MG/50 ML RTUPB IV ONE (18:43)
[2020-03-21] MEDS ORDERED: FENTANYL CITRATE INJ/PF 250 MCG/5 ML AMPULE ONE (19:15)
[2020-03-21] MEDS ORDERED: HYDROMORPHONE HCL INJ/PF 2 MG/ML AMPULE ONE (19:15)
[2020-03-21] MEDS ORDERED: MIDAZOLAM 2 MG/2 ML INJ ONE (19:15)
[2020-03-21] MEDS ORDERED: PROPOFOL INJ 200 MG/20 ML VIAL IV ONE (19:16)
--- NOTE | 2020-03-21 19:19 | PDOC H&P ---
History of Present Illness Admission Date/PCP: 03/21/2020 Patient complains of: Right lower quadrant abdominal pain History of Present Illness: JENNIFER TODD is a 49 year old male, obese, who presents emergency room with a 2-day history of right upper quadrant abdominal pain intense nausea. The patient denies other systemic symptoms. A CT scan of the abdomen pelvis has been done and is a significant for acute uncomplicated appendicitis Past Medical History Cardiac Medical History: Reports: Hypertension Social History Smoking Status: Current Every Day Smoker Electronic Cigarette use?: No Frequency of Alcohol Use: Heavy Hx Recreational Drug Use: No Drugs: None Hx Prescription Drug Abuse: No Family History Family History: Hypertension Parental Family History Reviewed: No Children Family History Reviewed: No Sibling(s) Family History Reviewed.: No Medication/Allergy Home Medications: Rivaroxaban [Xarelto] 15 mg PO Q12 04/23/18 Acetaminophen [Tylenol 325 mg Tablet] 650 mg PO Q4HP PRN tablet 05/04/18 Ferrous Sulfate [Feosol 325 mg Tablet] 325 mg PO DAILY #30 tablet 05/04/18 Hydrochlorothiazide 25 mg PO DAILY #30 tablet 05/04/18 Hydrocodone/Acetaminophen [[place] 5-325 mg Tablet] 1 tab PO Q8H PRN #10 tablet 05/04/18 Sulfamethoxazole/Trimethoprim [Bactrim Ds Tablet] 1 each PO Q12 5 Days #10 tablet 05/04/18 Allergies/Adverse Reactions: No Known Allergies Allergy (Verified 03/21/20 11:41) Physical Exam Vital Signs: Temp Pulse Resp BP Pulse Ox 98.1 F 86 22 H 157/93 H 98 03/21/20 11:15 03/21/20 11:15 03/21/20 11:15 03/21/20 11:15 03/21/20 11:15 Intake & Output 03/20/20 03/21/20 03/22/20 06:59 06:59 06:59 Weight 126.3 kg General appearance: PRESENT: no acute distress, obese, well-nourished Eye exam: PRESENT: EOMI Mouth exam: PRESENT: neck supple Teeth exam: PRESENT: poor dentation Respiratory exam: PRESENT: clear to auscultation al[place] Cardiovascular exam: PRESENT: RRR GI/Abdominal exam: PRESENT: hypoactive bowel sounds, soft, tenderness - In the right lower quadrant Rectal exam: PRESENT: deferred Extremities exam: PRESENT: full ROM Musculoskeletal exam: PRESENT: full ROM Neurological exam: PRESENT: alert, awake, oriented to place Psychiatric exam: PRESENT: appropriate affect Results Laboratory Results: 03/21/20 11:52 03/21/20 11:52 03/21/20 03/21/20 03/21/20 11:52 11:52 11:52 WBC 18.6 H RBC 4.84 Hgb 14.7 Hct 42.7 MCV 88 MCH 30.3 MCHC 34.4 RDW 13.9 Plt Count 289 Seg Neutrophils % 81.5 H Sodium 137.3 Potassium 4.7 Chloride 104 Carbon Dioxide 25 Anion Gap 8 BUN 17 Creatinine 0.96 Est GFR ( Amer) > 60 Glucose 125 H Calcium 10.0 Total Bilirubin 0.8 AST 18 Alkaline Phosphatase 72 Total Protein 7.3 Albumin 4.2 Lipase 28.0 Urine Color YELLOW Urine Appearance CLEAR Urine pH 6.0 Ur Specific [place] 1.016 Urine Protein NEGATIVE Urine Glucose (UA) NEGATIVE Urine Ketones NEGATIVE Urine Blood SMALL H Urine Nitrite NEGATIVE Ur Leukocyte Esterase NEGATIVE Urine WBC (Auto) 0 Urine RBC (Auto) 1 Impressions: Abdomen Ultrasound 03/21/20 11:47 IMPRESSION: 1. Increased echogenicity of hepatic parenchyma suggestive of underlying hepatic steatosis. 2. The pancreas is obscured by overlying bowel. 3. The gallbladder is normal in appearance. Abdomen/Pelvis CT 03/21/20 17:22 IMPRESSION: Uncomplicated appendicitis. Assessment & Plan - Diagnosis (1) Appendicitis Qualifiers: Appendicitis type: acute appendicitis Acute appendicitis type: with localized peritonitis Qualified Code(s): K35.80 - Unspecified acute appendicitis Is this a current diagnosis for this admission?: Yes - Time Anticipated Discharge Disposition: Home, Self Care Anticipated Discharge Timeframe: within 24 hours - Plan Summary Plan Summary: Assessment: Right lower quadrant pain for 2 days Leukocytosis 18,000 CT scan abdomen pelvis significant for acute uncomplicated appendicitis Plan: N.p.o. Rocephin 2 g IV piggyback every 12 hours Clindamycin 900 mg IV piggyback every 8 hours Preop EKG IV fluids Plan laparoscopic appendectomy possible open. Procedure, risks, benefits, complications, including the possibility of infection, lavelle wel injury, blood clots, possible , have been discussed with the patient, he understands all the above, his questions were answered, he desires to proceed
[2020-03-21] MEDS ORDERED: BUPIVACAINE HCL 0.5%-EPI 1:200000 INJ/PF 30 ML VIAL ONE (19:22)
[2020-03-21] MEDS ORDERED: DIPHENHYDRAMINE HCL 50 MG/ML VIAL IV PRN (20:52)
[2020-03-21] MEDS ORDERED: MEPERIDINE HCL/PF INJ 25 MG/1 ML DISP.SYRIN IV PRN (20:52)
[2020-03-21] MEDS ORDERED: MORPHINE SULFATE 10 MG/ML INJ IV PRN (20:52)
[2020-03-21] MEDS ORDERED: FENTANYL CITRATE INJ/PF 100 MCG/2 ML AMPUL IV PRN ×3 (20:52)
--- NOTE | 2020-03-21 20:56 | EKG REPORT ---
SEVERITY:- ABNORMAL ECG - SINUS RHYTHM PROBABLE LEFT ATRIAL ABNORMALITY IVCD, CONSIDER ATYPICAL RBBB LEFT VENTRICULAR HYPERTROPHY : Confirmed by: Rahul Juarez MD 21-Mar-2020 20:55:19
[2020-03-21] MEDS ORDERED: ONDANSETRON HCL INJ/PF 4 MG/2 ML SDV IV PRN (21:41)
--- NOTE | 2020-03-21 21:41 | Operative Report ---
Operative Report DATE OF SURGERY: 03/21/20 PREOPERATIVE DIAGNOSIS: Acute appendicitis POSTOPERATIVE DIAGNOSIS: Acute gangrenous appendicitis OPERATION: Laparoscopic appendectomy SURGEON: JEWEL GORDILLO ANESTHESIA: GA - Plus 20 mL of 0.5% Marcaine with epinephrine TISSUE REMOVED OR ALTERED: Appendix COMPLICATIONS: None ESTIMATED BLOOD LOSS: Legible INTRAOPERATIVE FINDINGS: Acutely inflamed gangrenous appendicitis without evidence of rupture PROCEDURE: The procedure was done in the operating room. The patient was placed in a supine position, general anesthesia induced by endotracheal intubation, the abdomen was prepped and draped in usual fashion. An incision was made just above the umbilicus with a #15 blade, the skin was tented with towel clips and a 5 mm port with Optiview adapter and scope were inserted through the abdominal wall into the peritoneal cavity. After they CO2 pneumoperitoneum was obtained, under direct visualization a 5 mm report was inserted in the right lateral quadrant of the abdomen following skin incision. The scope was removed from the umbilical port and inserted into the right side port. The 5 mm umbilical port was removed and replaced with a 12 mm port, while the 5 mm port was inserted in left lower quadrant of the abdomen following skin incision. The patient was placed in steep Trendelenburg position with the right side elevated. The appendix was then identified by tracing the anterior tenia of the cecum, the appendix was then found, elevated, and stretched. The mesentery of the appendix was divided with the LigaSure. The appendix was found to be [non-perforated]. The appendix was stapled at the base with an Endo JAD stapler, extracted from the peritoneal cavity with an Endobag through the umbilical port. The pneumoperitoneum was then re-established, the stapled line was examined and found to be intact. The right lower quadrant was then irrigated with normal saline until clear; the irrigation fluid was fully aspirated. A 19 mm Taj[place] round Toribio drain was inserted through the umbilical port and extracted from the left lower quadrant abdominal port; it was placed in the right lower quadrant. The drain was then secured to the skin with a 2-0 nylon suture. The umbilical fascial defect was closed with a [id number] 0 Vicryl suture, placed with a fascia closure device under direct visualization and left untied. All instruments were removed, the pneumoperitoneum was released, and all ports were removed. The umbilical fascial defect was closed with the previously placed [id number] 0 Vicryl suture, all skin incisions were closed with a 4-0 PDS running subcuticular suture, and covered with Dermabond. The patient tolerated the procedure well, was extubated, and transferred to the recovery room in satisfactory conditions.
[2020-03-21] MEDS ORDERED: KETOROLAC TROMETHAMINE INJ/PF 30 MG/1 ML SDV ONE (22:08)
[2020-03-21] MEDS ORDERED: ACETAMINOPHEN 1,000 MG/100 ML RTUPB IV ONE (22:08)
[2020-03-21] MEDS: KETOROLAC TROMETHAMINE INJ/PF 30 MG/1 ML SDV IV SCH ×2 (22:10→23:04)
[2020-03-21] MEDS: PROMETHAZINE HCL INJ 25 MG/1 ML VIAL IV PRN ×2 (22:15→22:19)
[2020-03-21] MEDS ORDERED: PROMETHAZINE HCL INJ 25 MG/1 ML VIAL ONE (22:22)
[2020-03-21] MEDS: DOCUSATE SODIUM 100 MG/10 ML UDC PO SCH (23:01)
[2020-03-21] MEDS: CLINDAMYCIN 900 MG/D5W RTU 900 MG/50 ML RTUPB IV SCH (23:04)
[2020-03-21] MEDS: FAMOTIDINE INJ/PF 20 MG/2 ML SDV IV SCH (23:04)
[2020-03-22] MEDS ORDERED: ACETAMINOPHEN 1,000 MG/100 ML RTUPB IV PRN (03:06)
[2020-03-22] MEDS: CEFTRIAXONE 2 GM/D5W RTU 2 GM/50 ML RTUPB IV SCH ×2 (05:43→17:44)
[2020-03-22] MEDS: KETOROLAC TROMETHAMINE INJ/PF 30 MG/1 ML SDV IV SCH ×4 (05:44→23:54)
[2020-03-22 06:16] LABS: HEMATOCRIT 37.1 % (37.9-51.0); HEMOGLOBIN 12.7 g/dL (13.5-17.0); MEAN CORPUSCULAR HEMOGLOBIN 30.2 pg (27.0-33.4); MEAN CORPUSCULAR HGB CONC 34.2 g/dL (32.0-36.0); MEAN CORPUSCULAR VOLUME 88 fl (80-97); PLATELET COUNT 216 10^3/uL (150-450); RED CELL DISTRIBUTION WIDTH 13.8 % (11.5-14.0)
[2020-03-22 06:19] LABS: ANION GAP 9 (5-19); BLOOD UREA NITROGEN 15 mg/dL (7-20); CALCIUM 8.5 mg/dL (8.4-10.2); CARBON DIOXIDE 23 mmol/L (22-30); CHLORIDE 104 mmol/L (98-107); GLUCOSE 150 mg/dL (75-110); POTASSIUM 4.8 mmol/L (3.6-5.0)
[2020-03-22] MEDS: CLINDAMYCIN 900 MG/D5W RTU 900 MG/50 ML RTUPB IV SCH ×3 (06:23→21:51)
[2020-03-22] MEDS: ENOXAPARIN SODIUM INJ 40 MG/0.4 ML DISP.SYRIN SUBCUT SCH (06:30)
[2020-03-22 06:47] LABS: ABSOLUTE LYMPHOCYTES# (MANUAL) 0.8 10^3/uL (0.5-4.7); ABSOLUTE MONOCYTES # (MANUAL) 0.5 10^3/uL (0.1-1.4); BAND NEUTROPHILS % (MANUAL) 3 % (3-5); BASOPHILS % (MANUAL) 0 % (0-2); EOSINOPHILS % (MANUAL) 0 % (0-6); LYMPHOCYTES % (MANUAL) 5 % (13-45); MONOCYTES % (MANUAL) 3 % (3-13); SEGMENTED NEUTROPHILS % (MAN) 89 % (42-78); TOTAL CELLS COUNTED 100; TOXIC GRANULATION SLIGHT; TOXIC VACUOLATION PRESENT
[2020-03-22 06:48] LABS: OVALOCYTES SLIGHT; POIKILOCYTOSIS SLIGHT; SCHISTOCYTES SLIGHT; TEAR DROP CELLS SLIGHT
[2020-03-22 06:49] LABS: PLATELET COMMENT ADEQUATE
[2020-03-22] MEDS: DOCUSATE SODIUM 100 MG/10 ML UDC PO SCH (09:22)
[2020-03-22] MEDS: FAMOTIDINE INJ/PF 20 MG/2 ML SDV IV SCH ×2 (09:27→21:52)
[2020-03-22] MEDS: HYDROCODONE/ACETAMINOPHEN 10-325 MG TABLET PO PRN ×3 (10:45→19:48)
--- NOTE | 2020-03-22 14:26 | PDOC PROGRESS REPORT ---
Subjective Progress Note for:: 03/22/20 Reason For Visit: ACUTE GANGRENOUS APPENDICITIS Physical Exam Vital Signs: Temp Pulse Resp BP Pulse Ox 98.5 F 55 L 16 142/82 H 100 03/22/20 11:09 03/22/20 11:09 03/22/20 11:09 03/22/20 11:09 03/22/20 11:09 Intake & Output 03/21/20 03/22/20 03/23/20 06:59 06:59 06:59 Intake Total 3770 Output Total 755 Balance 3015 Weight 128.5 kg Results Laboratory Results: 03/22/20 04:53 03/22/20 04:53 03/22/20 03/22/20 04:53 04:53 WBC 16.0 H RBC 4.20 L Hgb 12.7 L Hct 37.1 L MCV 88 MCH 30.2 MCHC 34.2 RDW 13.8 Plt Count 216 Seg Neutrophils % Not Reportable Sodium 135.8 L Potassium 4.8 Chloride 104 Carbon Dioxide 23 Anion Gap 9 BUN 15 Creatinine 0.94 Est GFR ( Amer) > 60 Glucose 150 H Calcium 8.5 Impressions: Abdomen Ultrasound 03/21/20 11:47 IMPRESSION: 1. Increased echogenicity of hepatic parenchyma suggestive of underlying hepatic steatosis. 2. The pancreas is obscured by overlying bowel. 3. The gallbladder is normal in appearance. Abdomen/Pelvis CT 03/21/20 17:22 IMPRESSION: Uncomplicated appendicitis. Assessment & Plan - Time Anticipated Discharge Disposition: Home, Self Care Anticipated Discharge Timeframe: within 24 hours - Plan Summary Plan Summary: 49-year-old male status post laparoscopic appendectomy for gangrenous appendicitis. Patient has a pelvic KHLOE drain in place. He complains of abdomin al pain. I will start oral pain medications today (Jennings). I have encouraged the patient to ambulate and use his incentive spirometer. The patient tolerated his breakfast, but reports that he "did not eat much". He is not passing flatus at this time. He denies any nausea or vomiting. Continue with diet for now. Continue antibiotics. Likely home tomorrow.
[2020-03-22] MEDS: DOCUSATE SODIUM 100 MG CAPSULE PO SCH (17:43)
[2020-03-23] MEDS: HYDROCODONE/ACETAMINOPHEN 10-325 MG TABLET PO PRN ×2 (03:18→10:37)
[2020-03-23] MEDS: KETOROLAC TROMETHAMINE INJ/PF 30 MG/1 ML SDV IV SCH ×4 (05:16→23:06)
[2020-03-23] MEDS: CEFTRIAXONE 2 GM/D5W RTU 2 GM/50 ML RTUPB IV SCH ×2 (05:17→17:01)
[2020-03-23 05:29] LABS: ABSOLUTE EOSINOPHILS # (AUTO) 0.1 10^3/uL (0.0-0.6); ABSOLUTE LYMPHOCYTES (AUTO) 1.7 10^3/uL (0.5-4.7); ABSOLUTE NEUT (AUTO) 8.2 10^3/uL (1.7-8.2); BASOPHILS % (AUTO) 0.4 % (0-2); EOSINOPHILS % (AUTO) 1.2 % (0-6); HEMATOCRIT 34.5 % (37.9-51.0); HEMOGLOBIN 11.9 g/dL (13.5-17.0); LYMPHOCYTES % (AUTO) 15.4 % (13-45); MEAN CORPUSCULAR HEMOGLOBIN 30.2 pg (27.0-33.4); MEAN CORPUSCULAR HGB CONC 34.5 g/dL (32.0-36.0); MEAN CORPUSCULAR VOLUME 88 fl (80-97); PLATELET COUNT 198 10^3/uL (150-450); RED BLOOD COUNT 3.93 10^6/uL (4.35-5.55); RED CELL DISTRIBUTION WIDTH 13.5 % (11.5-14.0); TOTAL CELLS COUNTED % (AUTO) 100 %
[2020-03-23 05:48] LABS: BLOOD UREA NITROGEN 18 mg/dL (7-20); CALCIUM 8.7 mg/dL (8.4-10.2); CARBON DIOXIDE 24 mmol/L (22-30); GLUCOSE 97 mg/dL (75-110); POTASSIUM 4.4 mmol/L (3.6-5.0)
[2020-03-23 05:54] LABS: ANION GAP 6 (5-19); CHLORIDE 101 mmol/L (98-107)
[2020-03-23] MEDS: CLINDAMYCIN 900 MG/D5W RTU 900 MG/50 ML RTUPB IV SCH ×3 (05:55→21:08)
[2020-03-23] MEDS: ENOXAPARIN SODIUM INJ 40 MG/0.4 ML DISP.SYRIN SUBCUT SCH (06:32)
[2020-03-23] MEDS: DOCUSATE SODIUM 100 MG CAPSULE PO SCH ×2 (10:36→17:03)
[2020-03-23] MEDS: FAMOTIDINE INJ/PF 20 MG/2 ML SDV IV SCH (10:37)
[2020-03-23] MEDS ORDERED: ACETAMINOPHEN 325 MG TABLET PO PRN (17:35)
--- NOTE | 2020-03-23 17:39 | PDOC PROGRESS REPORT ---
Subjective Progress Note for:: 03/23/20 Subjective:: Complaining of lower abdominal pain, tolerating p.o. well, ambulating well Reason For Visit: ACUTE GANGRENOUS APPENDICITIS Physical Exam Vital Signs: Temp Pulse Resp BP Pulse Ox 98.4 F 52 L 20 160/90 H 100 03/23/20 11:20 03/23/20 11:20 03/23/20 11:20 03/23/20 11:20 03/23/20 11:20 Intake & Output 03/22/20 03/23/20 03/24/20 06:59 06:59 06:59 Intake Total 3820 2140 50 Output Total 755 2080 10 Balance 3065 60 40 Weight 128.5 kg 128.5 kg General appearance: PRESENT: no acute distress, morbidly obese Mouth exam: PRESENT: neck supple Respiratory exam: PRESENT: clear to auscultation alban Cardiovascular exam: PRESENT: RRR GI/Abdominal exam: PRESENT: other - Abdomen obese, not distended, tender in the lower quadrants, incision clean dry intact, midline Toribio drain filled with cloudy serosanguineous fluid Results Laboratory Results: 03/23/20 04:54 03/23/20 04:54 03/23/20 03/23/20 04:54 04:54 WBC 11.0 H RBC 3.93 L Hgb 11.9 L Hct 34.5 L MCV 88 MCH 30.2 MCHC 34.5 RDW 13.5 Plt Count 198 Seg Neutrophils % 74.0 Sodium 130.9 L Potassium 4.4 Chloride 101 Carbon Dioxide 24 Anion Gap 6 BUN 18 Creatinine 1.00 Est GFR ( Amer) > 60 Glucose 97 Calcium 8.7 Impressions: Abdomen Ultrasound 03/21/20 11:47 IMPRESSION: 1. Increased echogenicity of hepatic parenchyma suggestive of underlying hepatic steatosis. 2. The pancreas is obscured by overlying bowel. 3. The gallbladder is normal in appearance. Abdomen/Pelvis CT 03/21/20 17:22 IMPRESSION: Uncomplicated appendicitis. Assessment & Plan - Diagnosis (1) Appendicitis Qualifiers: Appendicitis type: acute appendicitis Acute appendicitis type: with localized peritonitis Qualified Code(s): K35.80 - Unspecified acute appendicitis Is this a current diagnosis for this admission?: Yes - Time Anticipated Discharge Disposition: Home, Self Care Anticipated Discharge Timeframe: within 48 hours - Plan Summary Plan Summary: Assessment: Postoperative day #2 following a laparoscopic appendectomy for acute nonperforated gangrenous appendicitis White blood cell count 11 Patient afebrile Physical exam of the abdomen abdomen shows slight tenderness in the lower quadrants Toribio drain output is cloudy Plan: Continue IV antibiotics Stop IV narcotics Start Toradol IV as needed for pain Start p.o. iron for pain Check blood work tomorrow morning if white blood cell count is normal,the patient can be discharged home tomorrow
[2020-03-23] MEDS: FAMOTIDINE 20 MG TABLET PO SCH (21:08)
[2020-03-24] MEDS: CLINDAMYCIN 900 MG/D5W RTU 900 MG/50 ML RTUPB IV SCH (05:15)
[2020-03-24] MEDS: KETOROLAC TROMETHAMINE INJ/PF 30 MG/1 ML SDV IV SCH ×2 (05:15→13:14)
[2020-03-24 06:09] LABS: ABSOLUTE EOSINOPHILS # (AUTO) 0.2 10^3/uL (0.0-0.6); ABSOLUTE LYMPHOCYTES (AUTO) 1.5 10^3/uL (0.5-4.7); ABSOLUTE MONOCYTES (AUTO) 0.9 10^3/uL (0.1-1.4); ABSOLUTE NEUT (AUTO) 4.9 10^3/uL (1.7-8.2); BASOPHILS % (AUTO) 0.3 % (0-2); EOSINOPHILS % (AUTO) 3.1 % (0-6); HEMATOCRIT 36.1 % (37.9-51.0); HEMOGLOBIN 12.4 g/dL (13.5-17.0); LYMPHOCYTES % (AUTO) 20.3 % (13-45); MEAN CORPUSCULAR HEMOGLOBIN 30.2 pg (27.0-33.4); MEAN CORPUSCULAR HGB CONC 34.4 g/dL (32.0-36.0); MEAN CORPUSCULAR VOLUME 88 fl (80-97); MONOCYTES % (AUTO) 11.9 % (3-13); PLATELET COUNT 221 10^3/uL (150-450); RED BLOOD COUNT 4.11 10^6/uL (4.35-5.55); RED CELL DISTRIBUTION WIDTH 13.8 % (11.5-14.0); SEGMENTED NEUTROPHILS % (AUTO) 64.4 % (42-78); TOTAL CELLS COUNTED % (AUTO) 100 %; WHITE BLOOD COUNT 7.6 10^3/uL (4.0-10.5)
[2020-03-24 06:22] LABS: ANION GAP 7 (5-19); BLOOD UREA NITROGEN 13 mg/dL (7-20); CALCIUM 8.6 mg/dL (8.4-10.2); CARBON DIOXIDE 22 mmol/L (22-30); CHLORIDE 108 mmol/L (98-107); GLUCOSE 94 mg/dL (75-110); POTASSIUM 4.3 mmol/L (3.6-5.0)
[2020-03-24] MEDS: ENOXAPARIN SODIUM INJ 40 MG/0.4 ML DISP.SYRIN SUBCUT SCH (06:56)
[2020-03-24] MEDS: CEFTRIAXONE 2 GM/D5W RTU 2 GM/50 ML RTUPB IV SCH (06:56)
[2020-03-24] MEDS: FAMOTIDINE 20 MG TABLET PO SCH (10:14)
[2020-03-24] MEDS: DOCUSATE SODIUM 100 MG CAPSULE PO SCH (13:14)
--- NOTE | 2020-03-24 13:26 | PDOC PROGRESS REPORT ---
Subjective Progress Note for:: 03/24/20 Subjective:: Patient comfortable Reason For Visit: ACUTE GANGRENOUS APPENDICITIS Physical Exam Vital Signs: Temp Pulse Resp BP Pulse Ox 98.0 F 66 25 H 143/83 H 97 03/24/20 07:57 03/24/20 07:57 03/24/20 07:57 03/24/20 07:57 03/24/20 07:57 Intake & Output 03/23/20 03/24/20 03/25/20 06:59 06:59 06:59 Intake Total 2140 900 50 Output Total 2080 3320 Balance 60 -2420 50 Weight 128.5 kg 132.7 kg General appearance: PRESENT: no acute distress, obese Respiratory exam: PRESENT: clear to auscultation alban Cardiovascular exam: PRESENT: RRR GI/Abdominal exam: PRESENT: hypoactive bowel sounds, normal bowel sounds, soft, other - All incisions are clean, dry, and intact; umbilical area has subcutaneous bruising Results Laboratory Results: 03/24/20 05:26 03/24/20 05:26 03/24/20 03/24/20 05:26 05:26 WBC 7.6 RBC 4.11 L Hgb 12.4 L Hct 36.1 L MCV 88 MCH 30.2 MCHC 34.4 RDW 13.8 Plt Count 221 Seg Neutrophils % 64.4 Sodium 137.1 Potassium 4.3 Chloride 108 H Carbon Dioxide 22 Anion Gap 7 BUN 13 Creatinine 0.81 Est GFR ( Amer) > 60 Glucose 94 Calcium 8.6 Impressions: Abdomen Ultrasound 03/21/20 11:47 IMPRESSION: 1. Increased echogenicity of hepatic parenchyma suggestive of underlying hepatic steatosis. 2. The pancreas is obscured by overlying bowel. 3. The gallbladder is normal in appearance. Abdomen/Pelvis CT 03/21/20 17:22 IMPRESSION: Uncomplicated appendicitis. Assessment & Plan - Diagnosis (1) Appendicitis Qualifiers: Appendicitis type: acute appendicitis Acute appendicitis type: with localized peritonitis Qualified Code(s): K35.80 - Unspecified acute appendicitis Is this a current diagnosis for this admission?: Yes - Time Anticipated Discharge Disposition: Home, Self Care Anticipated Discharge Timeframe: Today - Plan Summary Plan Summary: Assessment: Postoperative day #3 following laparoscopic appendectomy for acute gangrenous appendicitis Vital signs stable, patient afebrile White blood cell count 7.8 Physical exam unremarkable, all wounds are clean, dry, and intact; Plan: Patient could be discharged home with my viewpoint today Regular diet Sponge bath only until Toribio drain in place Follow-up in surgery office in 1 week for drain removal Empty Toribio drain bulb daily; bring output record to the office clinic appointment No wound care needed Augmentin 875 mg by mouth twice a day for 10 days Tylenol only for pain
--- NOTE | 2020-03-24 13:32 | PDOC DISCHARGE SUMMARY ---
General - Admit/Disc Date/PCP Admission Date/Primary Care Provider: 03/21/20 21:20 Discharge Date: 03/24/20 - Discharge Diagnosis Final Diagnosis: Acute gangrenous appendicitis - Assessment Summary: The patient is a healthy 49-year-old male who presented to the hospital with right lower quadrant pain on March 21, 2020. A white blood cell count was 18,000, CT scan of the abdomen pelvis revealed acute appendicitis, he underwent uneventful laparoscopic appendectomy which demonstrated a gangrenous acute appendicitis without rupture. His postop course was unremarkable, on the day of discharge the patient had no complaints, 30 p.o. well, water cell count 7.8, he was afebrile, abdomen was soft, he has Toribio drain output was 10 mL today with a cloudy serous fluid, all wounds were clean dry intact. Regular diet Sponge bath only until Toribio drain in place Follow-up in surgery office in 1 week for drain removal Empty Toribio drain bulb daily; bring output record to the office clinic appointment No wound care needed Augmentin 875 mg by mouth twice a day for 10 days Tylenol only for pain - Additional Information Resuscitation Status: Full Code Discharge Diet: Regular Discharge Activity: Activity As Tolerated, No tub bath - Sponge bath only until Toribio drain is in place, then he can shower. Tub bath in 2 weeks Referrals: [facility] [Provider Group] - 04/02/20 10:45 am Prescriptions: Amoxicillin/Potassium Clav [Augmentin 875-125 Tablet] 1 tab PO BID #20 tab Home Medications: Magnesium Oxide [Mag-Ox 400 mg Tablet] 400 mg PO DAILY 03/22/20 Potassium Gluconate [Potassium] 99 mg PO DAILY 03/22/20 Acetaminophen [Tylenol 325 mg Tablet] 650 mg PO Q6HP PRN tablet 03/24/20 Amoxicillin/Potassium Clav [Augmentin 875-125 Tablet] 1 tab PO BID #20 tab 03/24/20 Docusate Sodium [Colace 100 mg Capsule] 100 mg PO BID capsule 03/24/20 Additional Information: Regular diet Sponge bath only until Toribio drain in place Follow-up in surgery office in 1 week for drain removal Empty Toribio drain bulb daily; bring output record to the office clinic appointment No wound care needed Augmentin 875 mg by mouth twice a day for 10 days Tylenol only for pain History of Present Illiness History of Present Illness: JENNIFER TODD is a 49 year old male, obese, who presents emergency room with a 2-day history of right upper quadrant abdominal pain intense nausea. The patient denies other systemic symptoms. A CT scan of the abdomen pelvis has been done and is a significant for acute uncomplicated appendicitis Physical Exam Vital Signs: Temp Pulse Resp BP Pulse Ox 98.0 F 66 25 H 143/83 H 97 03/24/20 07:57 03/24/20 07:57 03/24/20 07:57 03/24/20 07:57 03/24/20 07:57 Intake & Output 03/23/20 03/24/20 03/25/20 06:59 06:59 06:59 Intake Total 2140 900 50 Output Total 2080 3320 Balance 60 -2420 50 Weight 128.5 kg 132.7 kg Results Laboratory Results: WBC 7.6 10^3/uL (4.0-10.5) 03/24/20 05:26 RBC 4.11 10^6/uL (4.35-5.55) L 03/24/20 05:26 Hgb 12.4 g/dL (13.5-17.0) L 03/24/20 05:26 Hct 36.1 % (37.9-51.0) L 03/24/20 05:26 MCV 88 fl (80-97) 03/24/20 05:26 MCH 30.2 pg (27.0-33.4) 03/24/20 05:26 MCHC 34.4 g/dL (32.0-36.0) 03/24/20 05:26 RDW 13.8 % (11.5-14.0) 03/24/20 05:26 Plt Count 221 10^3/uL (150-450) 03/24/20 05:26 Lymph % (Auto) 20.3 % (13-45) 03/24/20 05:26 [place] % (Auto) 11.9 % (3-13) 03/24/20 05:26 Eos % (Auto) 3.1 % (0-6) 03/24/20 05:26 Baso % (Auto) 0.3 % (0-2) 03/24/20 05:26 Absolute Neuts (auto) 4.9 10^3/uL (1.7-8.2) 03/24/20 05:26 Absolute Lymphs (auto) 1.5 10^3/uL (0.5-4.7) 03/24/20 05:26 Absolute Monos (auto) 0.9 10^3/uL (0.1-1.4) 03/24/20 05:26 Absolute Eos (auto) 0.2 10^3/uL (0.0-0.6) 03/24/20 05:26 Absolute Basos (auto) 0.0 10^3/uL (0.0-0.2) 03/24/20 05:26 Total Counted 100 03/22/20 04:53 Seg Neutrophils % 64.4 % (42-78) 03/24/20 05:26 Seg Neuts % (Manual) 89 % (42-78) H 03/22/20 04:53 Band Neutrophils % 3 % (3-5) 03/22/20 04:53 Lymphocytes % (Manual) 5 % (13-45) L 03/22/20 04:53 Monocytes % (Manual) 3 % (3-13) 03/22/20 04:53 Eosinophils % (Manual) 0 % (0-6) 03/22/20 04:53 Basophils % (Manual) 0 % (0-2) 03/22/20 04:53 Abs Neuts (Manual) 14.7 10^3/uL (1.7-8.2) H 03/22/20 04:53 Abs Lymphs (Manual) 0.8 10^3/uL (0.5-4.7) 03/22/20 04:53 Abs Monocytes (Manual) 0.5 10^3/uL (0.1-1.4) 03/22/20 04:53 Absolute Eos (Manual) 0.0 10^3/uL (0.0-0.6) 03/22/20 04:53 Abs Basophils (Manual) 0.0 10^3/uL (0.0-0.2) 03/22/20 04:53 Toxic Granulation SLIGHT 03/22/20 04:53 Toxic Vacuolation PRESENT 03/22/20 04:53 Platelet Comment ADEQUATE 03/22/20 04:53 Poikilocytosis SLIGHT 03/22/20 04:53 Tear Drop Cells SLIGHT 03/22/20 04:53 Ovalocytes SLIGHT 03/22/20 04:53 Schistocytes SLIGHT 03/22/20 04:53 Sodium 137.1 mmol/L (137-145) 03/24/20 05:26 Potassium 4.3 mmol/L (3.6-5.0) 03/24/20 05:26 Chloride 108 mmol/L (98-107) H 03/24/20 05:26 Carbon Dioxide 22 mmol/L (22-30) 03/24/20 05:26 Anion Gap 7 (5-19) 03/24/20 05:26 BUN 13 mg/dL (7-20) 03/24/20 05:26 Creatinine 0.81 mg/dL (0.52-1.25) 03/24/20 05:26 Est GFR ( Amer) > 60 (>60) 03/24/20 05:26 Est GFR (MDRD) Non-Af > 60 (>60) 03/24/20 05:26 Glucose 94 mg/dL (75-110) 03/24/20 05:26 Calcium 8.6 mg/dL (8.4-10.2) 03/24/20 05:26 Total Bilirubin 0.8 mg/dL (0.2-1.3) 03/21/20 11:52 Direct Bilirubin 0.2 mg/dL (0.0-0.4) 03/21/20 11:52 Neonat Total Bilirubin Not Reportable 03/21/20 11:52 Neonat Direct Bilirubin Not Reportable 03/21/20 11:52 Neonat Indirect Bili Not Reportable 03/21/20 11:52 AST 18 U/L (17-59) 03/21/20 11:52 ALT 16 U/L (<50) 03/21/20 11:52 Alkaline Phosphatase 72 U/L (38-126) 03/21/20 11:52 Total Protein 7.3 g/dL (6.3-8.2) 03/21/20 11:52 Albumin 4.2 g/dL (3.5-5.0) 03/21/20 11:52 Lipase 28.0 U/L (23-300) 03/21/20 11:52 Urine Color YELLOW 03/21/20 11:52 Urine Appearance CLEAR 03/21/20 11:52 Urine pH 6.0 (5.0-9.0) 03/21/20 11:52 Ur Specific [place] 1.016 03/21/20 11:52 Urine Protein NEGATIVE mg/dL (NEGATIVE) 03/21/20 11:52 Urine Glucose (UA) NEGATIVE mg/dL (NEGATIVE) 03/21/20 11:52 Urine Ketones NEGATIVE mg/dL (NEGATIVE) 03/21/20 11:52 Urine Blood SMALL (NEGATIVE) H 03/21/20 11:52 Urine Nitrite NEGATIVE (NEGATIVE) 03/21/20 11:52 Urine Bilirubin NEGATIVE (NEGATIVE) 03/21/20 11:52 Urine Urobilinogen NEGATIVE mg/dL (<2.0) 03/21/20 11:52 Ur Leukocyte Esterase NEGATIVE (NEGATIVE) 03/21/20 11:52 Urine WBC (Auto) 0 /HPF 03/21/20 11:52 Urine RBC (Auto) 1 /HPF 03/21/20 11:52 Urine Mucus (Auto) RARE /LPF 03/21/20 11:52 Urine Ascorbic Acid NEGATIVE (NEGATIVE) 03/21/20 11:52 Impressions: Abdomen Ultrasound 03/21/20 11:47 IMPRESSION: 1. Increased echogenicity of hepatic parenchyma suggestive of underlying hepatic steatosis. 2. The pancreas is obscured by overlying bowel. 3. The gallbladder is normal in appearance. Abdomen/Pelvis CT 03/21/20 17:22 IMPRESSION: Uncomplicated appendicitis.
[2020-03-24 13:57] VITALS: BP 157/90
== END 2020-03-24 14:45 | disposition home or self-care (01) ==
LOC: ER 11:11 → 4N 21:20
PROVIDERS: ADMIT Surgery; ATTEND Surgery
DX: K35.31 Acute appendicitis with localized peritonitis and gangrene, without perforation (principal); E66.01 Morbid (severe) obesity due to excess calories; I10 Essential (primary) hypertension; F17.210 Nicotine dependence, cigarettes, uncomplicated; R63.0 Anorexia; I45.10 Unspecified right bundle-branch block; Z82.49 Family history of ischemic heart disease and other diseases of the circulatory system; Z96.642 Presence of left artificial hip joint; Z79.899 Other long term (current) drug therapy
CPT/HCPCS: 44970; 93005; 99285; 96361; 96375; 96365; 36415 ×4; 83690; 85025 ×4; 80048 ×3; 80053; 81001; 88304 ×2; 76705; 74177; 94799; 93010; 99140; 00840; G0378 ×4; J2250; J3490 ×7; J1100; S0119; J3010; J1885 ×4; J2270; J2710; J1650 ×3; J1170; J2550; J0330; J2405; J7030; J2704; S0028 ×3; J0131 ×2; J0696 ×4; 840